=== PATIENT | female | born 1955 | race Caucasian/White ===

== ENCOUNTER 2018-10-16 10:04 | Emergency (ER) | payer MEDICARE, OTHER ==
[2018-10-16 10:11] VITALS: BP 128/56
--- NOTE | 2018-10-16 10:23 | ER Document Report ---
ED Medical Screen (RME) - General Chief Complaint: Foot Pain Stated Complaint: RIGHT FOOT PAIN Time Seen by Provider: 10/16/18 10:19 Notes: Patient is a type I diabetic on insulin with history of Rnxkmgs-Nowby-Duyec syndrome of the right foot that was diagnosed in November. She is here because she is having flattening and expanding of the mid right foot along with associated pain increase and redness. Her primary care provider is in [facility] and she has not been seen at this hospital. Not aware of any fever. Patient has gastroparesis, is legally blind, has diffuse neuropathy. TRAVEL OUTSIDE OF THE [place] IN LAST 30 DAYS: No - Related Data Allergies/Adverse Reactions: lisinopril Allergy (Verified 10/16/18 10:12) Past Medical History - Social History Chew tobacco use (# tins/day): No Frequency of alcohol use: None Drug Abuse: None - Past Medical History Cardiac Medical History: Reports: Hx Heart Attack Endocrine Medical History: Reports: Hx Diabetes Mellitus Type 1 Renal/ Medical History: Denies: Hx Peritoneal Dialysis Past Surgical History: Reports: Hx Section - x2, Hx Orthopedic Surgery - right arm Physical Exam - Vital signs Vitals: Temp Pulse Resp BP Pulse Ox 97.9 F 89 16 128/56 H 96 10/16/18 10:08 10/16/18 10:08 10/16/18 10:08 10/16/18 10:08 10/16/18 10:08 Course - Vital Signs Vital signs: Temp Pulse Resp BP Pulse Ox 97.9 F 89 16 128/56 H 96 10/16/18 10:08 10/16/18 10:08 10/16/18 10:08 10/16/18 10:08 10/16/18 10:08
[2018-10-16 11:07] LABS: ABSOLUTE BASOPHILS # (AUTO) 0.1 10^3/uL (0.0-0.2); ABSOLUTE EOSINOPHILS # (AUTO) 0.1 10^3/uL (0.0-0.6); ABSOLUTE LYMPHOCYTES (AUTO) 2.1 10^3/uL (0.5-4.7); ABSOLUTE MONOCYTES (AUTO) 0.6 10^3/uL (0.1-1.4); ABSOLUTE NEUT (AUTO) 3.6 10^3/uL (1.7-8.2); BASOPHILS % (AUTO) 1.1 % (0-2); EOSINOPHILS % (AUTO) 2.1 % (0-6); HEMATOCRIT 41.1 % (36.0-47.0); HEMOGLOBIN 13.9 g/dL (12.0-15.5); LYMPHOCYTES % (AUTO) 32.3 % (13-45); MEAN CORPUSCULAR HEMOGLOBIN 31.6 pg (27.0-33.4); MEAN CORPUSCULAR HGB CONC 33.8 g/dL (32.0-36.0); MEAN CORPUSCULAR VOLUME 94 fl (80-97); MONOCYTES % (AUTO) 9.5 % (3-13); PLATELET COUNT 347 10^3/uL (150-450); RED BLOOD COUNT 4.39 10^6/uL (3.72-5.28); RED CELL DISTRIBUTION WIDTH 13.1 % (11.5-14.0); TOTAL CELLS COUNTED % (AUTO) 100 %; WHITE BLOOD COUNT 6.5 10^3/uL (4.0-10.5)
--- NOTE | 2018-10-16 11:24 | RADIOLOGY REPORT (SQ) ---
EXAM DESCRIPTION: FOOT RIGHT COMPLETE COMPLETED DATE/TIME: 10/16/2018 11:12 am REASON FOR STUDY: Worsening of Sofrote-Nubbd-Hdpmj foot COMPARISON: None. NUMBER OF VIEWS: Three views. TECHNIQUE: AP, lateral and oblique without weight bearing radiographic images acquired of the right foot. LIMITATIONS: None. FINDINGS: MINERALIZATION: Normal. BONES: No acute fracture. Marked erosive changes involving the tarsal metatarsal joints. Relative s paring of the proximal 5th metatarsal. There appears to be generalized lateral subluxation of the se conds 3rd 4th and 5th metatarsals. Hyperextension at the tarsal metatarsal joints. No significant os teophytes. JOINTS: No erosions. No sangita-articular osteopenia. No chondrocalcinosis. SOFT TISSUES: No swelling. No calcifications. OTHER: No other significant finding. IMPRESSION: Marked erosive changes involving the tarsal metatarsal joints with hyperextension. Late ral subluxation of the seconds 3rd 4th and 5th metatarsals. TECHNICAL DOCUMENTATION: JOB ID: [id number] [employer]- All Rights Reserved Reading location - IP/workstation name: [email or web address]
[2018-10-16 11:27] LABS: ALANINE AMINOTRANSFERASE 15 U/L (9-52); ALBUMIN 4.6 g/dL (3.5-5.0); ALKALINE PHOSPHATASE 114 U/L (38-126); ANION GAP 11 (5-19); ASPARTATE AMINO TRANSFERASE 22 U/L (14-36); BILIRUBIN,DIRECT 0.2 mg/dL (0.0-0.4); BILIRUBIN,TOTAL 0.7 mg/dL (0.2-1.3); BLOOD UREA NITROGEN 19 mg/dL (7-20); CALCIUM 10.1 mg/dL (8.4-10.2); CARBON DIOXIDE 30 mmol/L (22-30); CHLORIDE 102 mmol/L (98-107); GLUCOSE 90 mg/dL (75-110); POTASSIUM 4.5 mmol/L (3.6-5.0); SODIUM 143.4 mmol/L (137-145); TOTAL PROTEIN 8.1 g/dL (6.3-8.2)
[2018-10-16] MEDS ORDERED: CEPHALEXIN 500 MG CAPSULE PO ONE (12:41)
--- NOTE | 2018-10-16 13:30 | ER Document Report ---
ED General - General Chief Complaint: Foot Pain Stated Complaint: RIGHT FOOT PAIN Time Seen by Provider: 10/16/18 10:19 TRAVEL OUTSIDE OF THE [place] IN LAST 30 DAYS: No - HPI Patient complains to provider of: Right foot pain Notes: Patient coming in for right foot pain was seen by triage provider whose note is provided below Patient is a type I diabetic on insulin with history of Oseytdp-Cwnkj-Flgia syndrome of the right foot that was diagnosed in November. She is here because she is having flattening and expanding of the mid right foot along with associated pain increase and redness. Her primary care provider is in [place] and she has not been seen at this hospital. Not aware of any fever. Further evaluation patient patient has a Charcot right foot states this is been ongoing since November when she had surgery performed when an A. tach was in her foot but she was unaware of that became infected. Patient states since that time has had deformity of her foot consistent with a Charcot right foot states that she recently moved to the area and has been unable to establish primary care patient states noticed a slight red area on the bottom of her foot therefo re came to the ER for further evaluation. Patient states history of neuropathy unable to feel anything on the bottom of her foot. Patient otherwise denies any fevers chills nausea vomiting diarrhea looks otherwise nontoxic upon my evaluation. - Related Data Allergies/Adverse Reactions: lisinopril Allergy (Verified 10/16/18 10:12) Past Medical History - Social History Smoking Status: Never Smoker Chew tobacco use (# tins/day): No Frequency of alcohol use: None Drug Abuse: None Family History: Reviewed & Not Pertinent Patient has suicidal ideation: No Patient has homicidal ideation: No - Past Medical History Cardiac Medical History: Reports: Hx Heart Attack Endocrine Medical History: Reports: Hx Diabetes Mellitus Type 1 Renal/ Medical History: Denies: Hx Peritoneal Dialysis Past Surgical History: Reports: Hx Section - x2, Hx Orthopedic Surgery - right arm Review of Systems - Review of Systems Constitutional: No symptoms reported EENT: No symptoms reported Cardiovascular: No symptoms reported Respiratory: No symptoms reported Gastrointestinal: No symptoms reported Genitourinary: No symptoms reported Female Genitourinary: No symptoms reported Musculoskeletal: Other - Foot pain Skin: No symptoms reported Hematologic/Lymphatic: No symptoms reported Neurological/Psychological: No symptoms reported Physical Exam - Vital signs Vitals: Temp Pulse Resp BP Pulse Ox 97.9 F 89 16 128/56 H 96 10/16/18 10:08 10/16/18 10:08 10/16/18 10:08 10/16/18 10:08 10/16/18 10:08 Interpretation: Normal - General General appearance: Appears well, Alert - HEENT Head: Normocephalic, Atraumatic Eyes: Normal Pupils: PERRL - Respiratory Respiratory status: No respiratory distress Chest status: Nontender Breath sounds: Normal Chest palpation: Normal - Cardiovascular Rhythm: Regular Heart sounds: Normal auscultation Murmur: No - Abdominal Inspection: Normal Distension: No distension Bowel sounds: Normal Tenderness: Nontender Organomegaly: No organomegaly - Back Back: Normal, Nontender - Extremities General upper extremity: Normal inspection, Nontender, Normal color, Normal ROM, Normal temperature General lower extremity: Nontender, Normal color, Normal ROM, Normal temperature, Normal weight bearing. No: Normal inspection - Left foot unaffected. Right foot has flattening of the arch with a small area approximate size of a $0.50 piece that is erythematous indurated not warm to touch no fluctuance no pain no signs of abscess formation is also a deformity of the arch flattening of the arch of the left foot with a small area of redness on the lateral portion just above where the arch should be at. Again this area is not warm no fluctuance no signs of abscess formation., Wilber's sign - Neurological Neuro grossly intact: Yes Cognition: Normal Orientation: AAOx4 [place] Coma Scale Eye Opening: Spontaneous Brandi Coma Scale Verbal: Oriented Brandi Coma Scale Motor: Obeys Commands [place] Coma Scale Total: 15 Speech: Normal Motor strength normal: LUE, RUE, LLE, RLE Sensory: Normal - Psychological Associated symptoms: Normal affect, Normal mood - Skin Skin Temperature: Warm Skin Moisture: Dry Skin Color: Normal Course - Re-evaluation Re-evalutation: 10/16/18 16:08 Patient coming in for evaluation of right foot pain ongoing since November and redness to the foot. No white count no fever x-ray shows erosion of the bone. Patient has some slight erythema that may be the beginning of a cellulitic or infectious process however I feel that this is more strongly due to improper footwear due to her Charcot foot. Patient was encouraged to follow-up with podiatry did get the patient's information to our social work team to see if they can help establish primary care. Patient will be given Keflex and was instructed to continue to monitor the area return immediately should develop fevers or worsening signs of an infection. - Vital Signs Vital signs: Temp Pulse Resp BP Pulse Ox 97.9 F 89 16 128/56 H 96 10/16/18 10:08 10/16/18 10:08 10/16/18 10:08 10/16/18 10:08 10/16/18 10:08 - Laboratory Result Diagrams: 10/16/18 10:40 10/16/18 10:40 Discharge - Discharge Clinical Impression: Right foot pain, Diabetes, Erythema to the bottom of the foot Condition: Good Disposition: HOME, SELF-CARE Instructions: Cellulitis ([facility]), Ice Massage ([facility]), Warm Packs ([facility]) Additional Instructions: X-ray of your foot today is not revealing signs of overt infection your examination is concerning for a slight amount of erythema on the bottom of your foot this may be the beginning of a cellulitis therefore we will go ahead and cover you with a medication called Keflex. I will give your information to our renal social worker to see if we can help establish you further follow-up. I would recommend using the postop shoe that we gave you here in ER and also using the crutch if you continue to have discomfort in ambulating to help decrease the amount of weight that you are bearing on your right foot. Return to the ER if symptoms worsen or if you develop a fever Prescriptions: Cephalexin Monohydrate [Keflex 500 mg Capsule] 500 mg PO Q6H 10 Days capsule Referrals: CELIO FUENTES DPM [ACTIVE STAFF] - Follow up as needed
== END 2018-10-16 14:00 | disposition home or self-care (01) ==
LOC: ER 10:04
DX: G60.0 Hereditary motor and sensory neuropathy (principal); M79.671 Pain in right foot; L53.9 Erythematous condition, unspecified; E10.9 Type 1 diabetes mellitus without complications; Z88.8 Allergy status to other drugs, medicaments and biological substances
CPT/HCPCS: 99283; 36415; 87040; 85025; 80053; 73630; A9270

== ENCOUNTER → 2018-10-22 | Outpatient (CLI) | payer MEDICARE, OTHER | LOC: WI 10:17 | PROVIDERS: ATTEND Internal Medicine | DX: Z85.3 Personal history of malignant neoplasm of breast (principal) | CPT/HCPCS: 77066 ==

== ENCOUNTER 2018-11-24 09:27 | Emergency (ER) | payer MEDICARE, OTHER ==
--- NOTE | 2018-11-24 10:02 | ER Document Report ---
HPI - HPI Patient complains to provider of: Ears clogged Time Seen by Provider: 11/24/18 09:56 Onset: Last week Onset/Duration: Gradual Pain Level: Denies Context: Patient complains of ears being clogged and decreased hearing. Patient denies any fever or drainage from the ears. Patient states she has had this problem in the past. Associated Symptoms: Earache. denies: Fever Exacerbated by: Denies Relieved by: Denies Similar symptoms previously: Yes Recently seen / treated by doctor: No - ROS ROS below otherwise negative: Yes Systems Reviewed and Negative: Yes All other systems reviewed and negative - CONSTITUTIONAL Constitutional: DENIES: Fever - EENT EENT: REPORTS: Ear Pain - GASTROINTESTINAL Gastrointestinal: DENIES: Nausea - DERM Skin Color: Normal Skin Problems: None Past Medical History - General Information source: Patient - Social History Smoking Status: Never Smoker Frequency of alcohol use: None Drug Abuse: None Lives with: Spouse/Significant other Family History: Reviewed & Not Pertinent - Past Medical History Cardiac Medical History: Reports: Hx Heart Attack Endocrine Medical History: Reports: Hx Diabetes Mellitus Type 1 Renal/ Medical History: Denies: Hx Peritoneal Dialysis Past Surgical History: Reports: Hx Section - x2, Hx Orthopedic Surgery - right arm Vertical Provider Document - CONSTITUTIONAL Agree With Documented VS: Yes Exam Limitations: No Limitations General Appearance: WD/WN, No Apparent Distress - INFECTION CONTROL TRAVEL OUTSIDE OF THE [place] IN LAST 30 DAYS: No - HEENT HEENT: Atraumatic, Normocephalic. negative: Pharyngeal Exudate, Pharyngeal Tenderness, Pharyngeal Erythema Notes: bilat cerumen impaction, no mastoid tenderness or swelling - NECK Neck: Normal Inspection, Supple. negative: Lymphadenopathy-Left, Lymphadenopathy-Right - RESPIRATORY Respiratory: Breath Sounds Normal, No Respiratory Distress - CARDIOVASCULAR Cardiovascular: Regular Rate, Regular Rhythm - BACK Back: Normal Inspection - MUSCULOSKELETAL/EXTREMETIES Musculoskeletal/Extremeties: MAEW - NEURO Level of Consciousness: Awake, Alert, Appropriate Motor/Sensory: No Motor Deficit - DERM Integumentary: Warm, Dry, No Rash Course - Re-evaluation Re-evalutation: 11/24/18 Cerumen impaction clear bilaterally after irrigation. Patient tolerated well. Normal TM bilaterally - Vital Signs Vital signs: Temp Pulse Resp BP Pulse Ox 98.1 F 85 20 130/58 H 98 11/24/18 09:36 11/24/18 09:36 11/24/18 09:36 11/24/18 09:36 11/24/18 09:36 Discharge - Discharge Clinical Impression: Cerumen impaction Qualifiers: Laterality: bilateral Qualified Code(s): H61.23 - Impacted cerumen, bilateral Condition: Stable Disposition: HOME, SELF-CARE Instructions: Cerumen Impaction ([facility]) Additional Instructions: Return immediately for any new or worsening symptoms Followup with your primary care provider, call tomorrow to make a followup appointment Referrals: LUIS CARLOS ROBERTS, DO [Primary Care Provider] - Follow up as needed
[2018-11-24] MEDS ORDERED: DOCUSATE SODIUM 100 MG/10 ML UDC AU ONE (10:27)
[2018-11-24 11:30] VITALS: BP 134/51
== END 2018-11-24 11:24 | disposition home or self-care (01) ==
LOC: ER 09:27
DX: H61.23 Impacted cerumen, bilateral (principal); E10.9 Type 1 diabetes mellitus without complications
CPT/HCPCS: 99282; A9270

== ENCOUNTER 2019-05-13 09:02 | Emergency (ER) | payer MEDICARE, OTHER ==
--- NOTE | 2019-05-13 09:35 | ER Document Report ---
ED Medical Screen (RME) - General Chief Complaint: Foot Pain Stated Complaint: FOOT PAIN Time Seen by Provider: 05/13/19 09:33 Primary Care Provider: TRISTEN ADKINS DPM [Primary Care Provider] - Follow up as needed Mode of Arrival: Ambulatory Information source: Patient Notes: 63-year-old female presented to ED for complaint of sore to the bottom of the left foot. She states she is type 1 diabetes with peripheral neuropathy and has developed a diabetic ulcer to the bottom of the left foot. She states she is mentioned to her doctor for couple times is been there for a long time but is gotten worse over the last couple weeks. She states she also has a history of gastroparesis [place] and she is blind. She had a carpal tunnel surgery multiple surgeries on her feet. She states her blood sugar this morning at home was 287. She states her doctor is trying to get her sugar under control but that has not been accomplished yet. Patient is alert oriented respirations regular and unlabored speaking in full sentences. I have greeted and performed a rapid initial assessment of this patient. A comprehensive ED assessment and evaluation of the patient, analysis of test results and completion of medical decision making process will be conducted by an additional ED providers. Dictation of this chart was performed using voice recognition software; therefore, there may be some unintended grammatical errors. TRAVEL OUTSIDE OF THE [place] IN LAST 30 DAYS: No - Related Data Allergies/Adverse Reactions: lisinopril Allergy (Verified 05/13/19 09:03) Past Medical History - Past Medical History Cardiac Medical History: Reports: Hx Heart Attack Endocrine Medical History: Reports: Hx Diabetes Mellitus Type 1 Renal/ Medical History: Denies: Hx Peritoneal Dialysis Past Surgical History: Reports: Hx Section - x2, Hx Orthopedic Surgery - right arm Physical Exam - Vital signs Vitals: Temp Pulse Resp BP Pulse Ox 97.9 F 83 16 140/67 H 98 05/13/19 09:09 05/13/19 09:09 05/13/19 09:09 05/13/19 09:09 05/13/19 09:09 Course - Vital Signs Vital signs: Temp Pulse Resp BP Pulse Ox 97.9 F 83 16 140/67 H 98 05/13/19 09:09 05/13/19 09:09 05/13/19 09:09 05/13/19 09:09 05/13/19 09:09 Doctor's Discharge - Discharge Referrals: TRISTEN ADKINS DPM [Primary Care Provider] - Follow up as needed
[2019-05-13 10:16] LABS: ABSOLUTE BASOPHILS # (AUTO) 0.1 10^3/uL (0.0-0.2); ABSOLUTE EOSINOPHILS # (AUTO) 0.1 10^3/uL (0.0-0.6); ABSOLUTE LYMPHOCYTES (AUTO) 2.1 10^3/uL (0.5-4.7); ABSOLUTE MONOCYTES (AUTO) 0.7 10^3/uL (0.1-1.4); ABSOLUTE NEUT (AUTO) 5.8 10^3/uL (1.7-8.2); BASOPHILS % (AUTO) 0.8 % (0-2); EOSINOPHILS % (AUTO) 1.5 % (0-6); HEMOGLOBIN 13.5 g/dL (12.0-15.5); LYMPHOCYTES % (AUTO) 23.8 % (13-45); MEAN CORPUSCULAR HEMOGLOBIN 32.1 pg (27.0-33.4); MEAN CORPUSCULAR HGB CONC 34.6 g/dL (32.0-36.0); MEAN CORPUSCULAR VOLUME 93 fl (80-97); MONOCYTES % (AUTO) 7.7 % (3-13); PLATELET COUNT 382 10^3/uL (150-450); RED BLOOD COUNT 4.19 10^6/uL (3.72-5.28); RED CELL DISTRIBUTION WIDTH 12.6 % (11.5-14.0); SEGMENTED NEUTROPHILS % (AUTO) 66.2 % (42-78); TOTAL CELLS COUNTED % (AUTO) 100 %; WHITE BLOOD COUNT 8.7 10^3/uL (4.0-10.5)
--- NOTE | 2019-05-13 10:29 | RADIOLOGY REPORT (SQ) ---
EXAM DESCRIPTION: FOOT RIGHT COMPLETE COMPLETED DATE/TIME: 05/13/2019 10:15 am REASON FOR STUDY: diabetic ulcer bottom of the foot COMPARISON: 10/16/2018 NUMBER OF VIEWS: Three views. TECHNIQUE: AP, lateral and oblique radiographic images acquired of the right foot. LIMITATIONS: None. FINDINGS: MINERALIZATION: Decreased. BONES: No definite acute fracture. Extensive erosive change involving the partial send tarsal metata rsal joint. There is again seen relative sparing of the 5th proximal metatarsal. There is associate d joint space loss and dysmorphic appearance of the bones. Unchanged lateral subluxation of the 2nd through 4th metatarsals in relation to the tarsals. There is collapse of the midfoot with pes planus . No new osseous erosions. JOINTS: As above. SOFT TISSUES: Soft tissue swelling about the foot. Scattered vascular calcifications P OTHER: No other significant finding. IMPRESSION: No definite new bony abnormality. Grossly stable appearance of the marker degenerative change involving the tarsal metatarsal joints as above. Unchanged collapse of the midfoot and lateral subluxation of the 2nd through 4th metatarsals . TECHNICAL DOCUMENTATION: JOB ID: [id number] [employer]- All Rights Reserved Reading location - IP/workstation name: [email or web address]
[2019-05-13 10:47] LABS: ALANINE AMINOTRANSFERASE 18 U/L (9-52); ALBUMIN 4.5 g/dL (3.5-5.0); ALKALINE PHOSPHATASE 131 U/L (38-126); ANION GAP 7 (5-19); ASPARTATE AMINO TRANSFERASE 22 U/L (14-36); BILIRUBIN,DIRECT 0.3 mg/dL (0.0-0.4); BILIRUBIN,TOTAL 0.6 mg/dL (0.2-1.3); BLOOD UREA NITROGEN 20 mg/dL (7-20); CALCIUM 9.7 mg/dL (8.4-10.2); CARBON DIOXIDE 30 mmol/L (22-30); CHLORIDE 100 mmol/L (98-107); GLUCOSE 318 mg/dL (75-110); POTASSIUM 5.4 mmol/L (3.6-5.0); TOTAL PROTEIN 7.9 g/dL (6.3-8.2)
--- NOTE | 2019-05-13 12:20 | ER Document Report ---
ED Extremity Problem, Lower - General Chief Complaint: Foot Pain Stated Complaint: FOOT PAIN Time Seen by Provider: 05/13/19 09:33 Primary Care Provider: TRISTEN ADKINS DPM [Primary Care Provider] - Follow up as needed CELIO MADISON DPM [ACTIVE STAFF] - Follow up as needed Mode of Arrival: Ambulatory Notes: Patient is a 63-year-old female with a history of type 1 diabetes, charcot foot, neuropathy, VA with stent placement x1, gastroparesis, chronic nausea presents to the emergency department with chief complaint of foot pain. Patient states that in February she noticed a scab to the bottom of the right foot. Patient states she does have neuropathy and cannot feel the bottom of her foot. Patient states since then the scab did come off and she is developed an ulcer. Patient states she does follow-up with her primary care physician at [facility] who is aware of this ulcer but has not given her any definitive treatment. Patient states now she is developing pain to the dorsal aspect of the foot which has been getting worse over the past 3 weeks. Patient denies fever, chills. Patient denies recent nausea vomiting or diarrhea. Patient does report she has a history of gastroparesis in which she does not have much p.o. intake anyway. Patient has had multiple surgeries to the right foot. Denies amputation of toes. Patient reports that her PCP has been working with her to get her diabetes under control as her blood sugars have been slightly elevated. TRAVEL OUTSIDE OF THE [place] IN LAST 30 DAYS: No - Related Data Allergies/Adverse Reactions: lisinopril Allergy (Verified 05/13/19 09:03) Past Medical History - General Information source: Patient - Social History Smoking Status: Never Smoker Chew tobacco use (# tins/day): No Frequency of alcohol use: None Drug Abuse: None Lives with: Spouse/Significant other Family History: Reviewed & Not Pertinent Patient has suicidal ideation: No Patient has homicidal ideation: No - Past Medical History Cardiac Medical History: Reports: Hx Heart Attack Pulmonary Medical History: Reports: None EENT Medical History: Reports: None Neurological Medical History: Reports: None Endocrine Medical History: Reports: Hx Diabetes Mellitus Type 1 Renal/ Medical History: Reports: None. Denies: Hx Peritoneal Dialysis Malignancy Medical History: Reports: None GI Medical History: Reports: Other - Gastroparesis, Chronic nausea Musculoskeletal Medical History: Reports None Skin Medical History: Reports None Psychiatric Medical History: Reports: None Traumatic Medical History: Reports: None Infectious Medical History: Reports: None Past Surgical History: Reports: Hx Cardiac Surgery - 1 stent, Hx Section - x2, Hx Orthopedic Surgery - right arm Review of Systems - Review of Systems Constitutional: No symptoms reported EENT: No symptoms reported Cardiovascular: No symptoms reported Respiratory: No symptoms reported Gastrointestinal: No symptoms reported Genitourinary: No symptoms reported Female Genitourinary: No symptoms reported Musculoskeletal: No symptoms reported Skin: See HPI Hematologic/Lymphatic: No symptoms reported Neurological/Psychological: No symptoms reported Physical Exam - Vital signs Vitals: Temp Pulse Resp BP Pulse Ox 97.9 F 83 16 140/67 H 98 05/13/19 09:09 05/13/19 09:09 05/13/19 09:09 05/13/19 09:09 05/13/19 09:09 Interpretation: Normal - Notes Notes: GENERAL: Well-appearing, well-nourished and in no acute distress. HEAD: Atraumatic, normocephalic. EYES: Pupils equal round and reactive to light, extraocular movements intact, sclera anicteric, conjunctiva are normal. ENT: Nares patent, oropharynx clear without exudates. Moist mucous membranes. NECK: Normal range of motion, supple without lymphadenopathy or JVD. LUNGS: Breath sounds clear to auscultation bilaterally and equal. No wheezes rales or rhonchi. HEART: Regular rate and rhythm without murmurs, rubs or gallops. ABDOMEN: Soft, nontender, normoactive bowel sounds. No guarding, no rebound. No masses appreciated. BACK: No cervical, thoracic, lumbar midline tenderness. No saddle anesthesia, normal distal neurovascular exam. GENITOURINARY: Deferred. EXTREMITIES: Normal range of motion, no pitting or edema. 2cmx1.5cm ulcer noted to the ventral aspect of the right foot with surrounding erythema, minimal yellow drainage, no edema noted to the foot. No visualization of bone. Foot is pink and warm. NEUROLOGICAL: Cranial nerves II through XII grossly intact. Normal speech, normal gait. PSYCH: Normal mood, normal affect. SKIN: Warm, Dry, normal turgor, no rashes or lesions noted. Course - Re-evaluation Re-evalutation: 05/13/19 14:32 I did consult with my supervising physician Dr. Romo, who did look at the x- ray. He recommends that the patient have strict follow-up with wound care, needs to be wearing the appropriate shoes and keep the pressure off the bottom of the foot as much as possible and to follow-up with the primary care physician for the uncontrolled diabetes as her insulin and dosages may need to be adjusted. The patient reports that she does have an appointment to be fitted for a diabetic boot at the end of May. I did inform the patient that she needed to follow-up prior to then as her ulcer may get worse. Upon reevaluation patient resting comfortably on stretcher. Patient did receive IV fluids for the slightly elevated potassium and the elevated glucose. Patient's repeat glucose was 214. I did explain in detail the importance of following up with wound care as I will provide a referral for them. I did state to call them today to schedule an appointment as the diabetic ulcer could potentially get worse, infected and the end result would be loss of foot. Patient verbalizes understanding and states she will call them as well as the who understands and is at the bedside. Did also inform the patient to refrain from eating green leafy vegetables and bananas over the next few days as her potassium was slightly elevated. Patient to given strict return precautions to include redness of the foot, fever, worsening a diabetic ulcer or any other concerning signs or symptoms. I also discussed the elevated hemoglobin A1c of 9.2. Patient states it has been in the for very long time and that her [facility] physician is aware. - Vital Signs Vital signs: Temp Pulse Resp BP Pulse Ox 97.4 F 80 16 148/62 H 100 05/13/19 14:48 05/13/19 14:48 05/13/19 14:48 05/13/19 14:48 05/13/19 14:48 - Laboratory Result Diagrams: 05/13/19 09:59 05/13/19 09:59 Laboratory results interpreted by me: 05/13/19 05/13/19 05/13/19 09:58 09:59 09:59 Potassium 5.4 H Glucose 318 H POC Glucose 287 H Hemoglobin A1c % 9.2 H Alkaline Phosphatase 131 H 05/13/19 14:23 Potassium Glucose POC Glucose 214 H Hemoglobin A1c % Alkaline Phosphatase Discharge - Discharge Clinical Impression: Hyperkalemia, Elevated hemoglobin A1c Diabetic foot ulcer Qualifiers: Diabetic foot ulcer location: midfoot Diabetes mellitus type: type 1 Laterality: right Non-pressure ulcer stage: limited to breakdown of skin Qualified Code(s): E10.621 - Type 1 diabetes mellitus with foot ulcer Condition: Stable Disposition: HOME, SELF-CARE Additional Instructions: Today you were seen in the emergency department for a diabetic foot wound. It does appear that you have a diabetic foot ulcer at the bottom of the right foot. At this time it does not appear infected but due to your neuropathy and diabetes that appears to be uncontrolled you are at an increased significant risk for this developing into an infection that can end up in the bone or encompass the whole foot that eventually can result in loss of limb. Please continue to follow-up with your primary care physician for the control of your diabetes. I am referring you to Dr. Madison as he specializes in wound care and can properly manage your diabetic foot ulcer. Please wear non-restricting shoes, try to stay off of the foot as much as possible or try to limit the pressure to the bottom of the foot. Please return to the emergency department if you develop fever, chills, worsening pain or increased swelling to the area. Your blood sugar was also noted to be in the low 300s. We did give you a liter of fluid to hydrate you and bring down your blood sugar (it was 214 at discharge). Your potassium level was also slightly elevated. Please limit foods high in potassium such as dark revealing vegetables and bananas. Your hemoglobin A1c was elevated at 9.2, which means that your diabetes is uncontrolled. Please follow-up with your primary care physician tomorrow as he may need to adjust her insulin dosage since it was elevated today. Foot or Leg Ulcer A skin ulcer often takes a long time to heal. Skin ulcers develop where there's poor circulation or damaged tissues. You must treat this ulcer carefully. Healing can take a few weeks, or it may take many months. Elevate the foot whenever possible. You'll probably need crutches for a while. Brief gentle heat can sometimes help, but overdoing the heat will damage the tissues and make things worse. Ask your doctor if you're not sure. Because skin ulcers occur in "sick tissues," you should pay close attention to your general health. If you're diabetic, keep your blood sugar as normal as possible. If you have edema, reduce it with medication. If your blood oxygen is low, use medication to improve your breathing and ask the doctor about an oxy gen tank at home. Review the treatment of all your medical problems with your doctor. Other treatments depend on the seriousness of the ulcer. An antibiotic is often prescribed at first. The ulcer should be cleaned and bandaged at least daily. If the ulceration is deep, packing the inside of the ulcer may be needed. The doctor may recommend special treatments such as whirlpool or a compressive dressing (for example, an Unna Boot). Call your primary care provider any time if you're not sure how you should take care of the ulcer. Infection can spread from the ulcer. If you develop fever, chilling, worsening pain, or increasing swelling in the area, call the doctor or return immediately. Referrals: TRISTEN ADKINS DPM [Primary Care Provider] - Follow up as needed CELIO MADISON DPM [ACTIVE STAFF] - Follow up as needed
[2019-05-13] MEDS ORDERED: NORMAL SALINE 1000 ML 1,000 ML IV ONE (12:27)
[2019-05-13 14:53] VITALS: BP 148/62
== END 2019-05-13 14:53 | disposition home or self-care (01) ==
LOC: ER 09:02
DX: E10.621 Type 1 diabetes mellitus with foot ulcer (principal); E10.40 Type 1 diabetes mellitus with diabetic neuropathy, unspecified; E10.43 Type 1 diabetes mellitus with diabetic autonomic (poly)neuropathy; E10.65 Type 1 diabetes mellitus with hyperglycemia; L97.519 Non-pressure chronic ulcer of other part of right foot with unspecified severity; K31.84 Gastroparesis; E87.5 Hyperkalemia; Z88.8 Allergy status to other drugs, medicaments and biological substances
CPT/HCPCS: 99283; 96360; 36415; 87040; 82962; 85025; 80053; 83036; 73630; J7030

== ENCOUNTER 2019-09-03 09:18 | Emergency (ER) | payer MEDICARE, OTHER ==
[2019-09-03 10:22] LABS: ABSOLUTE BASOPHILS # (AUTO) 0.1 10^3/uL (0.0-0.2); ABSOLUTE EOSINOPHILS # (AUTO) 0.2 10^3/uL (0.0-0.6); ABSOLUTE LYMPHOCYTES (AUTO) 2.3 10^3/uL (0.5-4.7); ABSOLUTE MONOCYTES (AUTO) 0.8 10^3/uL (0.1-1.4); ABSOLUTE NEUT (AUTO) 7.6 10^3/uL (1.7-8.2); BASOPHILS % (AUTO) 0.6 % (0-2); EOSINOPHILS % (AUTO) 1.4 % (0-6); HEMATOCRIT 35.2 % (36.0-47.0); HEMOGLOBIN 11.9 g/dL (12.0-15.5); LYMPHOCYTES % (AUTO) 21.1 % (13-45); MEAN CORPUSCULAR HEMOGLOBIN 31.4 pg (27.0-33.4); MEAN CORPUSCULAR VOLUME 92 fl (80-97); MONOCYTES % (AUTO) 7.4 % (3-13); PLATELET COUNT 383 10^3/uL (150-450); RED BLOOD COUNT 3.81 10^6/uL (3.72-5.28); RED CELL DISTRIBUTION WIDTH 12.3 % (11.5-14.0); SEGMENTED NEUTROPHILS % (AUTO) 69.5 % (42-78); TOTAL CELLS COUNTED % (AUTO) 100 %; WHITE BLOOD COUNT 10.9 10^3/uL (4.0-10.5)
--- NOTE | 2019-09-03 10:29 | ER Document Report ---
ED General - General Chief Complaint: Foot Pain Stated Complaint: FOOT PAIN Time Seen by Provider: 09/03/19 10:08 Primary Care Provider: CELIO FUENTES DPM [ACTIVE STAFF] - 09/10/19 1:00 pm TRAVEL OUTSIDE OF THE [place] IN LAST 30 DAYS: No - HPI Notes: 63-year-old female with a history of diabetes and Charcot's disease as well as a chronic right plantar foot ulcer presents complaining of right foot pain and is requesting referral to [facility] wound clinic. Patient states that her current insurance does not cover visits to wound clinic. Patient states that she has chronic pain in this foot. Patient denies fever, chills, leg swelling, erythema or edema in her right foot. - Related Data Allergies/Adverse Reactions: lisinopril Allergy (Verified 05/13/19 09:03) Past Medical History - General Information source: Patient - Social History Smoking Status: Unknown if Ever Smoked Family History: Reviewed & Not Pertinent Patient has suicidal ideation: No Patient has homicidal ideation: No - Past Medical History Cardiac Medical History: Reports: Hx Heart Attack Endocrine Medical History: Reports: Hx Diabetes Mellitus Type 1 Renal/ Medical History: Denies: Hx Peritoneal Dialysis Skin Medical History: Reports Other - History of right foot ulcer, history of Charcot's disease Past Surgical History: Reports: Hx Cardiac Surgery - 1 stent, Hx Section - x2, Hx Orthopedic Surgery - right arm Review of Systems - Review of Systems Constitutional: No symptoms reported EENT: No symptoms reported Cardiovascular: No symptoms reported Respiratory: No symptoms reported Gastrointestinal: No symptoms reported Genitourinary: No symptoms reported Female Genitourinary: No symptoms reported Musculoskeletal: See HPI. denies: Gout, Joint swelling Hematologic/Lymphatic: See HPI Neurological/Psychological: No symptoms reported -: Yes All other systems reviewed and negative Physical Exam - Vital signs Vitals: Temp Pulse Resp BP Pulse Ox 98.3 F 90 16 169/99 H 99 09/03/19 09:24 09/03/19 09:24 09/03/19 09:24 09/03/19 09:24 09/03/19 09:24 - Notes Notes: PHYSICAL EXAMINATION: GENERAL: Well-appearing, well-nourished and in no acute distress. HEAD: Atraumatic, normocephalic. EYES: Pupils equal round and reactive to light, extraocular movements intact, sclera anicteric, conjunctiva are normal. ENT: nares patent, oropharynx clear without exudates. Moist mucous membranes. NECK: Normal range of motion, supple without lymphadenopathy LUNGS: Breath sounds clear to auscultation bilaterally and equal. No wheezes rales or rhonchi. HEART: Regular rate and rhythm without murmurs ABDOMEN: Soft, nontender, normoactive bowel sounds. No guarding, no rebound. No masses appreciated. EXTREMITIES: Normal range of motion, no pitting edema. Right foot ulcer present on plantar surface, see skin exam. NEUROLOGICAL: No focal neurological deficits. Moves all extremities spontaneously and on command. PSYCH: Normal mood, normal affect. SKIN: Patient has a stage II ulcer on the plantar surface of her right midfoot. The ulceration is approximately 1.5 cm in diameter. There is very minimal purulent drainage, there is a large area of callused skin surrounding the ulceration. There is no emphysema or crepitus appreciated on palpation of the lesion. Cap refill is less than 2 seconds in the patient's toes on the right foot. Patient states she cannot feel the wound swab that this MD inserted into the ulceration for culture. Course - Vital Signs Vital signs: Temp Pulse Resp BP Pulse Ox 98.3 F 90 16 169/99 H 99 09/03/19 09:24 09/03/19 09:24 09/03/19 09:24 09/03/19 09:24 09/03/19 09:24 - Laboratory Result Diagrams: 09/03/19 09:56 09/03/19 11:22 Laboratory results interpreted by me: 09/03/19 09/03/19 09:56 11:22 WBC 10.9 H Hgb 11.9 L Hct 35.2 L Glucose 243 H Alkaline Phosphatase 140 H Total Protein 8.4 H 09/03/19 12:54 Laboratory results reviewed by this MD. - Diagnostic Test Radiology reviewed: Reports reviewed Discharge - Discharge Clinical Impression: Ulcer of right foot with fat layer exposed Clinical Impression: (Ruled Out): Right foot ulcer Condition: Fair Disposition: HOME, SELF-CARE Instructions: Foot or Leg Ulcer ([facility]) Additional Instructions: Return to the emergency department if your symptoms worsen despite taking medications as prescribed and following up with the wound clinic. Prescriptions: Clindamycin HCl [Cleocin 150 mg Capsule] 450 mg PO TID 7 Days #63 capsule Levofloxacin [Levaquin 750 mg Tablet] 750 mg PO DAILY #7 tablet Referrals: CELIO FUENTES DPM [ACTIVE STAFF] - 09/10/19 1:00 pm
--- NOTE | 2019-09-03 11:04 | RADIOLOGY REPORT (SQ) ---
EXAM DESCRIPTION: FOOT RIGHT COMPLETE COMPLETED DATE/TIME: 09/03/2019 10:53 am REASON FOR STUDY: RIGHT FOOT ULCER COMPARISON: None. NUMBER OF VIEWS: Three views. TECHNIQUE: AP, lateral and oblique radiographic images acquired of the right foot. LIMITATIONS: None. FINDINGS: MINERALIZATION: Normal. BONES: Pes planus. Marked degenerative changes involving the tarsal metatarsal joints, sparing the 4 th and 5th. Lisfranc deformity. Stable findings. JOINTS: See above SOFT TISSUES: No soft tissue swelling. No foreign body. OTHER: No other significant finding. IMPRESSION: Stable degenerative changes involving the tarsal metatarsal joints with Lisfranc deformi ty and pes planus. TECHNICAL DOCUMENTATION: JOB ID: [id number] [employer]- All Rights Reserved Reading location - IP/workstation name: [email or web address]
[2019-09-03 12:16] LABS: ALBUMIN 4.5 g/dL (3.5-5.0); ALKALINE PHOSPHATASE 140 U/L (38-126); ANION GAP 10 (5-19); ASPARTATE AMINO TRANSFERASE 23 U/L (14-36); BILIRUBIN,DIRECT 0.1 mg/dL (0.0-0.4); BILIRUBIN,TOTAL 0.5 mg/dL (0.2-1.3); BLOOD UREA NITROGEN 17 mg/dL (7-20); CALCIUM 9.4 mg/dL (8.4-10.2); CARBON DIOXIDE 28 mmol/L (22-30); CHLORIDE 100 mmol/L (98-107); GLUCOSE 243 mg/dL (75-110); POTASSIUM 4.7 mmol/L (3.6-5.0); TOTAL PROTEIN 8.4 g/dL (6.3-8.2)
[2019-09-03] MEDS ORDERED: CLINDAMYCIN HCL 150 MG CAPSULE PO ONE ×2 (12:48→14:00)
[2019-09-03] MEDS ORDERED: HYDROCODONE/ACETAMINOPHEN 5-325 MG TABLET PO ONE (12:49)
[2019-09-03] MEDS ORDERED: LEVOFLOXACIN 750 MG TABLET PO ONE (12:49)
[2019-09-03 13:46] VITALS: BP 141/67
== END 2019-09-03 13:23 | disposition home or self-care (01) ==
LOC: ER 09:18
DX: E10.621 Type 1 diabetes mellitus with foot ulcer (principal); L97.412 Non-pressure chronic ulcer of right heel and midfoot with fat layer exposed; L84 Corns and callosities; Z88.8 Allergy status to other drugs, medicaments and biological substances
CPT/HCPCS: 36415; 87040; 87070; 87205; 85025; 80053; 73630; A9270 ×2; 87077

== ENCOUNTER → 2019-09-16 | Outpatient (CLI) | payer MEDICARE, OTHER ==
[2019-09-16 13:49] LABS: ABSOLUTE BASOPHILS # (AUTO) 0.1 10^3/uL (0.0-0.2); ABSOLUTE EOSINOPHILS # (AUTO) 0.1 10^3/uL (0.0-0.6); ABSOLUTE LYMPHOCYTES (AUTO) 2.8 10^3/uL (0.5-4.7); ABSOLUTE MONOCYTES (AUTO) 0.7 10^3/uL (0.1-1.4); ABSOLUTE NEUT (AUTO) 4.8 10^3/uL (1.7-8.2); BASOPHILS % (AUTO) 0.9 % (0-2); EOSINOPHILS % (AUTO) 1.4 % (0-6); HEMATOCRIT 34.7 % (36.0-47.0); HEMOGLOBIN 11.9 g/dL (12.0-15.5); LYMPHOCYTES % (AUTO) 32.7 % (13-45); MEAN CORPUSCULAR HEMOGLOBIN 31.3 pg (27.0-33.4); MEAN CORPUSCULAR HGB CONC 34.3 g/dL (32.0-36.0); MEAN CORPUSCULAR VOLUME 91 fl (80-97); MONOCYTES % (AUTO) 8.4 % (3-13); PLATELET COUNT 341 10^3/uL (150-450); RED BLOOD COUNT 3.81 10^6/uL (3.72-5.28); RED CELL DISTRIBUTION WIDTH 13.2 % (11.5-14.0); SEGMENTED NEUTROPHILS % (AUTO) 56.6 % (42-78); TOTAL CELLS COUNTED % (AUTO) 100 %; WHITE BLOOD COUNT 8.5 10^3/uL (4.0-10.5)
[2019-09-16 14:18] LABS: ALBUMIN 4.1 g/dL (3.5-5.0); ALKALINE PHOSPHATASE 104 U/L (38-126); ANION GAP 12 (5-19); ASPARTATE AMINO TRANSFERASE 27 U/L (14-36); BILIRUBIN,DIRECT 0.1 mg/dL (0.0-0.4); BILIRUBIN,TOTAL 0.6 mg/dL (0.2-1.3); BLOOD UREA NITROGEN 14 mg/dL (7-20); CALCIUM 9.7 mg/dL (8.4-10.2); CARBON DIOXIDE 24 mmol/L (22-30); CHLORIDE 104 mmol/L (98-107); GLUCOSE 74 mg/dL (75-110); POTASSIUM 4.3 mmol/L (3.6-5.0); TOTAL PROTEIN 7.7 g/dL (6.3-8.2)
[2019-09-16 14:35] LABS: ERYTHROCYTE SEDIMENTATION RATE 43 mm/hr (0-30)
== END ==
LOC: WC 12:35
PROVIDERS: ATTEND Nurse Practitioner Family
DX: L97.512 Non-pressure chronic ulcer of other part of right foot with fat layer exposed (principal); E11.621 Type 2 diabetes mellitus with foot ulcer
CPT/HCPCS: 36415; 80053; 83036; 85025; 85652; 86140

== ENCOUNTER → 2019-11-05 | Outpatient (CLI) | payer MEDICARE, OTHER ==
[2019-11-05 12:21] LABS: ABSOLUTE BASOPHILS # (AUTO) 0.1 10^3/uL (0.0-0.2); ABSOLUTE EOSINOPHILS # (AUTO) 0.1 10^3/uL (0.0-0.6); ABSOLUTE LYMPHOCYTES (AUTO) 2.7 10^3/uL (0.5-4.7); ABSOLUTE MONOCYTES (AUTO) 0.8 10^3/uL (0.1-1.4); ABSOLUTE NEUT (AUTO) 6.3 10^3/uL (1.7-8.2); BASOPHILS % (AUTO) 0.7 % (0-2); EOSINOPHILS % (AUTO) 1.4 % (0-6); HEMOGLOBIN 12.6 g/dL (12.0-15.5); LYMPHOCYTES % (AUTO) 26.7 % (13-45); MEAN CORPUSCULAR HEMOGLOBIN 31.4 pg (27.0-33.4); MEAN CORPUSCULAR HGB CONC 34.1 g/dL (32.0-36.0); MEAN CORPUSCULAR VOLUME 92 fl (80-97); MONOCYTES % (AUTO) 7.8 % (3-13); PLATELET COUNT 350 10^3/uL (150-450); RED BLOOD COUNT 4.01 10^6/uL (3.72-5.28); RED CELL DISTRIBUTION WIDTH 13.8 % (11.5-14.0); SEGMENTED NEUTROPHILS % (AUTO) 63.4 % (42-78); TOTAL CELLS COUNTED % (AUTO) 100 %; WHITE BLOOD COUNT 9.9 10^3/uL (4.0-10.5)
[2019-11-05 12:52] LABS: ALBUMIN 4.4 g/dL (3.5-5.0); ALKALINE PHOSPHATASE 112 U/L (38-126); ANION GAP 8 (5-19); ASPARTATE AMINO TRANSFERASE 22 U/L (14-36); BILIRUBIN,DIRECT 0.2 mg/dL (0.0-0.4); BILIRUBIN,TOTAL 0.5 mg/dL (0.2-1.3); BLOOD UREA NITROGEN 20 mg/dL (7-20); CALCIUM 9.8 mg/dL (8.4-10.2); CARBON DIOXIDE 28 mmol/L (22-30); CHLORIDE 103 mmol/L (98-107); GLUCOSE 155 mg/dL (75-110); POTASSIUM 4.4 mmol/L (3.6-5.0); TOTAL PROTEIN 8.1 g/dL (6.3-8.2)
[2019-11-05 12:57] LABS: C-REACTIVE PROTEIN < 5.0 mg/L (<10.0)
[2019-11-05 13:00] LABS: ERYTHROCYTE SEDIMENTATION RATE 28 mm/hr (0-30)
--- NOTE | 2019-11-05 15:34 | RADIOLOGY REPORT (SQ) ---
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 NUMBER OF VIEWS: Three views. TECHNIQUE: AP, lateral and oblique radiographic images acquired of the right foot. LIMITATIONS: None. FINDINGS: MINERALIZATION: Normal. BONES: Chronic deformity of the tarsal bones and tarsal metatarsal joints. Pes planus. SOFT TISSUES: Plantar soft tissue defect. No soft tissue swelling. No foreign body. OTHER: No other significant finding. IMPRESSION: STABLE CHRONIC FINDINGS IN THE MIDFOOT. PLANTAR SOFT TISSUE ULCER. NO RADIOGRAPHIC HOME DENCE OF ABSCESS OR OSTEOMYELITIS. NO ACUTE BONY FINDINGS. TECHNICAL DOCUMENTATION: JOB ID: [id number] [employer]- All Rights Reserved Reading location - IP/workstation name: [email or web address]
== END ==
LOC: WC 11:42
PROVIDERS: ATTEND Nurse Practitioner Family
DX: E11.621 Type 2 diabetes mellitus with foot ulcer (principal); L97.512 Non-pressure chronic ulcer of other part of right foot with fat layer exposed
CPT/HCPCS: 36415; 80053; 85025; 85652; 86140

== ENCOUNTER → 2019-11-09 | Outpatient (CLI) | payer MEDICARE, OTHER ==
--- NOTE | 2019-11-09 12:20 | WOMENS IMAGING REPORT ---
EXAM DESCRIPTION: BILAT DIAGNOSTIC MAMMO W/CAD COMPLETED DATE/TIME: 11/09/2019 11:30 am REASON FOR STUDY: PERSONAL HISTORY OF MALIGNANT NEOPLASM Z85.3 Z85.3 PERSONAL HISTORY OF MALIGNANT NEOPLASM OF BREAST COMPARISON: 10/22/2018 EXAM PARAMETERS: Standard craniocaudal and mediolateral oblique views of each breast recorded using digital acquisition. Additional compression magnification views left breast lumpectomy site in the exaggerated craniocauda d, craniocaudad, MLO orientations. Additional left breast 90 mediolateral view and exaggerated cran iocaudad view. Read with the assistance of CAD: .[facility] - [employer] Version 9.2 LIMITATIONS: None. FINDINGS: RIGHT BREAST MASSES: No suspicious masses. CALCIFICATIONS: No new or suspicious calcifications. ARCHITECTURAL DISTORTION: None. ASYMMETRY: None noted. OTHER: No other significant findings. LEFT BREAST MASSES: No suspicious masses. CALCIFICATIONS: No new or suspicious calcifications. ARCHITECTURAL DISTORTION: Surgical lumpectomy site clips, old stereotactic biopsy clip left breast up per outer quadrant with postoperative architectural distortion ASYMMETRY: None noted. OTHER: No other significant finding. IMPRESSION: No mammographic evidence for malignancy bilaterally BREAST DENSITY: d. The breasts are extremely dense, which lowers the sensitivity of mammography. BIRAD: ASSESSMENT: 2 Benign findings. RECOMMENDATION: RECOMMENDED FOLLOW UP: Please continue yearly right breast screening, left breast di agnostic mammography. Given extremely dense fibroglandular tissue, please consider tomosynthesis in 2020. SPECIFIC INTERVENTION/IMAGING/CONSULTATION RECOMMENDED:No additional intervention/ imaging/consultati on needed at this time. COMMUNICATION:The negative/benign results were communicated to the patient. COMMENT: The patient has been notified of the results by letter per MQSA requirements. Additional no tification policies are in place for contacting patient with suspicious or incomplete findings. Quality ID #[id number]: The [employer] recommends an annual screening mammogram for women aged 40 years or over. This facility utilizes a reminder system to ensure that all patients receive reminder letters, and/or direct phone calls for appointments. This includes reminders for routine scr eening mammograms, diagnostic mammograms, or other Breast Imaging Interventions when appropriate. Th is patient will be placed in the appropriate reminder system. TECHNICAL DOCUMENTATION: FINDING NUMBER: (1) ASSESSMENT: (1) JOB ID: [id number] [employer]- All Rights Reserved Reading location - IP/workstation name: [email or web address]
== END ==
LOC: WI 10:51
PROVIDERS: ATTEND Internal Medicine
DX: Z08 Encounter for follow-up examination after completed treatment for malignant neoplasm (principal); Z85.3 Personal history of malignant neoplasm of breast
CPT/HCPCS: 77066

== ENCOUNTER → 2019-12-31 | Outpatient (CLI) | payer MEDICARE, OTHER ==
[2019-12-31 11:53] LABS: ABSOLUTE BASOPHILS # (AUTO) 0.1 10^3/uL (0.0-0.2); ABSOLUTE EOSINOPHILS # (AUTO) 0.2 10^3/uL (0.0-0.6); ABSOLUTE LYMPHOCYTES (AUTO) 1.9 10^3/uL (0.5-4.7); ABSOLUTE MONOCYTES (AUTO) 0.7 10^3/uL (0.1-1.4); ABSOLUTE NEUT (AUTO) 4.6 10^3/uL (1.7-8.2); BASOPHILS % (AUTO) 0.9 % (0-2); EOSINOPHILS % (AUTO) 2.4 % (0-6); HEMATOCRIT 37.4 % (36.0-47.0); HEMOGLOBIN 12.8 g/dL (12.0-15.5); MEAN CORPUSCULAR HEMOGLOBIN 31.1 pg (27.0-33.4); MEAN CORPUSCULAR HGB CONC 34.1 g/dL (32.0-36.0); MEAN CORPUSCULAR VOLUME 91 fl (80-97); MONOCYTES % (AUTO) 9.4 % (3-13); PLATELET COUNT 322 10^3/uL (150-450); RED CELL DISTRIBUTION WIDTH 13.5 % (11.5-14.0); SEGMENTED NEUTROPHILS % (AUTO) 61.3 % (42-78); TOTAL CELLS COUNTED % (AUTO) 100 %; WHITE BLOOD COUNT 7.5 10^3/uL (4.0-10.5)
[2019-12-31 12:20] LABS: ALBUMIN 4.3 g/dL (3.5-5.0); ALKALINE PHOSPHATASE 126 U/L (38-126); ANION GAP 9 (5-19); ASPARTATE AMINO TRANSFERASE 20 U/L (14-36); BILIRUBIN,TOTAL 0.6 mg/dL (0.2-1.3); BLOOD UREA NITROGEN 16 mg/dL (7-20); C-REACTIVE PROTEIN < 5.0 mg/L (<10.0); CALCIUM 9.4 mg/dL (8.4-10.2); CARBON DIOXIDE 27 mmol/L (22-30); CHLORIDE 99 mmol/L (98-107); GLUCOSE 319 mg/dL (75-110); POTASSIUM 5.3 mmol/L (3.6-5.0); TOTAL PROTEIN 7.6 g/dL (6.3-8.2)
[2019-12-31 12:35] LABS: ERYTHROCYTE SEDIMENTATION RATE 41 mm/hr (0-30)
--- NOTE | 2019-12-31 14:16 | RADIOLOGY REPORT (SQ) ---
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 TECHNIQUE: AP, lateral and oblique radiographic images acquired of the right foot. LIMITATIONS: Bones are partially obscured by the overlying boot. FINDINGS: MINERALIZATION: Normal. BONES: There is a small marginal erosion in the 1st cuneiform medially. JOINTS: There is deformity of the tarsal bones and tarsal metatarsal joints. SOFT TISSUES: No soft tissue swelling. No foreign body. OTHER: No other significant finding. IMPRESSION: Cannot exclude limited osteomyelitis in the 1st cuneiform bone. TECHNICAL DOCUMENTATION: JOB ID: [id number] [employer]- All Rights Reserved Reading location - IP/workstation name: [email or web address]
== END ==
LOC: WC 11:22
PROVIDERS: ATTEND Nurse Practitioner Family
DX: E11.621 Type 2 diabetes mellitus with foot ulcer (principal); L97.512 Non-pressure chronic ulcer of other part of right foot with fat layer exposed
CPT/HCPCS: 36415; 80053; 83036; 85025; 85652; 86140

== ENCOUNTER 2020-01-28 15:53 | Inpatient (IN) | payer MEDICARE, OTHER ==
[2020-01-28] MEDS ORDERED: NORMAL SALINE 1000 ML 1,000 ML IV ONE (17:56)
[2020-01-28] MEDS ORDERED: VANCOMYCIN HCL INJ 1000 MG VIAL IV ONE (17:58)
--- NOTE | 2020-01-28 18:40 | ER Document Report ---
ED General - General Chief Complaint: Skin Problem Stated Complaint: SKIN ISSUES/WOUND CHECK Time Seen by Provider: 01/28/20 17:12 Primary Care Provider: LUIS CARLOS ROBERTS DO [Primary Care Provider] - Follow up as needed TRAVEL OUTSIDE OF THE [place] IN LAST 30 DAYS: No - HPI Notes: 64-year-old female history of type 1 diabetes, PVD with angioplasty to right leg in the distant past, CAD presents with worsening right foot wound x1 week and left hand redness x1 week. Patient has been seeing wound care last seen before today 2 weeks ago without issue then today had visit and was referred to ED. Patient has had measured fevers intermittently over the past week around 100.7. Patient was started on doxycycline for left hand cellulitis 2 days ago which is shown no improvement. Patient says fingersticks have been in 300s over the past few weeks. Otherwise has felt well, denies any dizziness, syncope, nausea vomiting, abdominal pain, cough, chest pain, other recent antibiotics. - Related Data Allergies/Adverse Reactions: lisinopril Allergy (Verified 05/13/19 09:03) Opioids - Morphine Analogues Adverse Reaction (Verified 01/28/20 16:15) Past Medical History - Social History Smoking Status: Never Smoker Family History: Reviewed & Not Pertinent Patient has suicidal ideation: No Patient has homicidal ideation: No - Past Medical History Cardiac Medical History: Reports: Hx Heart Attack Endocrine Medical History: Reports: Hx Diabetes Mellitus Type 1 Renal/ Medical History: Denies: Hx Peritoneal Dialysis Past Surgical History: Reports: Hx Cardiac Surgery - 1 stent, Hx Section - x2, Hx Orthopedic Surgery - right arm Review of Systems - Review of Systems Notes: REVIEW OF SYSTEMS: CONSTITUTIONAL : +fever +chills EENT: Denies recent cold/sinus symptoms, denies throat pain CARDIOVASCULAR: Denies chest pain, YAHIR RESPIRATORY: Denies cough, denies shortness of breath. GASTROINTESTINAL: Denies abdominal pain, nausea/vomiting. GENITOURINARY: Denies difficulty urinating, painful urination. FEMALE GENITOURINARY: Denies abnormal vaginal bleeding, vaginal discharge. MUSCULOSKELETAL: Denies neck pain, back pain. SKIN: + hand rash, +wound HEMATOLOGIC : Denies easy bruising or bleeding. LYMPHATIC: Denies swollen, enlarged glands. NEUROLOGICAL: Denies headache, denies change in gait. PSYCHIATRIC: Denies anxiety or stress or depression. Physical Exam - Vital signs Vitals: Temp Pulse Resp BP Pulse Ox 98.2 F 93 16 145/67 H 97 01/28/20 15:57 01/28/20 15:57 01/28/20 15:57 01/28/20 15:57 01/28/20 15:57 - Notes Notes: PHYSICAL EXAMINATION: GENERAL: Comfortable appearing, chronically ill-appearing, in no acute distress. HEAD: Atraumatic, normocephalic. EYES: Pupils equal round and appropriate constriction, sclera anicteric, conjunctiva are normal. ENT: nares patent, mildly dry mucous membranes. NECK: Normal range of motion, supple without lymphadenopathy LUNGS: Breath sounds clear to auscultation bilaterally and equal. No wheezes rales or rhonchi. HEART: Regular rate and rhythm without murmurs ABDOMEN: Soft, nontender, no guarding, no masses, no CVAT EXTREMITIES: Normal range of motion, no pitting or edema. Right distal finger amputation well-healed. Left foot mid sole deep ulcer with clean dressing underneath dressing patient has lateral midfoot ulcer that communicates with ulcer on sole of foot with yellow discharge and foul odor minor surrounding erythema. Charcot joint on right MTP. Left hand dorsum erythematous, warm, and edematous without any pockets of fluctuance or discharge. NEUROLOGICAL: Awake, alert, conversing appropriately, moves all extremities spontaneously. PSYCH: Normal mood, normal affect. SKIN: Warm, Dry, normal turgor, see ext exam. Course - Re-evaluation Re-evalutation: 01/28/20 18:40 Presentation concerning for sepsis secondary to cellulitis versus osteomyelitis of left hand and right foot. Patient otherwise well-appearing, no signs of impending hemodynamic compromise, will rule out DKA, obtain imaging, start on vancomycin for likely MRSA, and admit. 01/28/20 20:13 Patient now meeting sepsis criteria for leukocytosis and initial heart rate but lactate negative, no acute findings on x-ray, patient remains stable and well- appearing, and course and workup not consistent with necrotizing fasciitis or immediate surgical wound, patient accepted to medicine floor after conversation with Dr. Estrada. - Vital Signs Vital signs: Temp Pulse Resp BP Pulse Ox 98.2 F 93 16 145/67 H 97 01/28/20 15:57 01/28/20 15:57 01/28/20 15:57 01/28/20 15:57 01/28/20 15:57 - Laboratory Result Diagrams: 01/28/20 18:40 01/28/20 18:40 Laboratory results interpreted by me: 01/28/20 01/28/20 01/28/20 17:51 18:40 18:40 WBC 21.0 H RBC 3.35 L Hgb 10.4 L Hct 30.7 L Plt Count 467 H Sodium 135.9 L BUN 24 H Creatinine 0.51 L Glucose 183 H POC Glucose 187 H Alkaline Phosphatase 180 H Albumin 3.4 L Discharge - Discharge Clinical Impression: Diabetic infection of right foot, Cellulitis of hand, left Condition: Fair Disposition: ADMITTED INPATIENT Admitting Provider: Sean (Hospitalist) Unit Admitted: Medical Floor Referrals: LUIS CARLOS ROBERTS DO [Primary Care Provider] - Follow up as needed
--- NOTE | 2020-01-28 18:41 | RADIOLOGY REPORT (SQ) ---
EXAM DESCRIPTION: FOOT RIGHT COMPLETE IMAGES COMPLETED DATE/TIME: 01/28/2020 6:20 pm REASON FOR STUDY: deep diabetic wound COMPARISON: Right foot films 09/03/2019, 11/05/2019, 12/31/2019 NUMBER OF VIEWS: Three views. TECHNIQUE: AP, lateral and oblique radiographic images acquired of the right foot. LIMITATIONS: Artifact from bandages FINDINGS: MINERALIZATION: Osteopenic BONES and JOINTS: There is complete collapse of the plantar arch, with Charcot foot. At the tarsomet atarsal joints, there is joint space narrowing bony fragmentation and malalignment, with stable sligh t lateral subluxation of the 2nd through 5th metatarsals with respect to the tarsal bones. These fin dings are all stable over series exams. SOFT TISSUES: There is a soft tissue ulcer at the base of the 5th right metatarsal without definite u nderlying bony erosion. OTHER: No other significant finding. IMPRESSION: Ulcer at the base of the 5th metatarsal without gross plain film evidence of osteomyelit is Charcot foot with collapse of the plantar arch and lateral subluxation of the 2nd through 5th metatar sals, similar compared to previous studies TECHNICAL DOCUMENTATION: JOB ID: [id number] 2010 [employer]- All Rights Reserved Reading location - IP/workstation name: [id number]
--- NOTE | 2020-01-28 18:43 | RADIOLOGY REPORT (SQ) ---
EXAM DESCRIPTION: HAND LEFT 3 VIEWS IMAGES COMPLETED DATE/TIME: 01/28/2020 6:20 pm REASON FOR STUDY: deep diabetic wound COMPARISON: None. EXAM PARAMETERS: NUMBER OF VIEWS: Three views. TECHNIQUE: AP, lateral and oblique radiographic images acquired of the left hand. LIMITATIONS: None. FINDINGS: MINERALIZATION: Normal. BONES: No acute fracture or dislocation. No worrisome bone lesions. JOINTS: No effusions. SOFT TISSUES: Diffuse left hand soft tissue swelling. No radiopaque foreign body. No soft tissue ga s. Arterial vascular calcifications. OTHER: No other significant finding. IMPRESSION: Diffuse soft tissue swelling of the left hand. No underlying fracture or radiopaque for eign body TECHNICAL DOCUMENTATION: JOB ID: [id number] 2010 [employer]- All Rights Reserved Reading location - IP/workstation name: [id number]
[2020-01-28 19:06] LABS: HEMATOCRIT 30.7 % (36.0-47.0); HEMOGLOBIN 10.4 g/dL (12.0-15.5); MEAN CORPUSCULAR HEMOGLOBIN 31.1 pg (27.0-33.4); MEAN CORPUSCULAR VOLUME 92 fl (80-97); PLATELET COUNT 467 10^3/uL (150-450); RED BLOOD COUNT 3.35 10^6/uL (3.72-5.28); RED CELL DISTRIBUTION WIDTH 13.1 % (11.5-14.0)
[2020-01-28 19:16] LABS: ALBUMIN 3.4 g/dL (3.5-5.0); ALKALINE PHOSPHATASE 180 U/L (38-126); ANION GAP 7 (5-19); ASPARTATE AMINO TRANSFERASE 20 U/L (14-36); BILIRUBIN,DIRECT 0.1 mg/dL (0.0-0.4); BILIRUBIN,TOTAL 0.4 mg/dL (0.2-1.3); BLOOD UREA NITROGEN 24 mg/dL (7-20); CALCIUM 8.9 mg/dL (8.4-10.2); CARBON DIOXIDE 29 mmol/L (22-30); CHLORIDE 100 mmol/L (98-107); GLUCOSE 183 mg/dL (75-110); POTASSIUM 4.4 mmol/L (3.6-5.0); TOTAL PROTEIN 6.9 g/dL (6.3-8.2)
[2020-01-28] MEDS ORDERED: CEFEPIME 2 GM/D5W RTU 50 ML IV ONE (20:02)
[2020-01-28] MEDS ORDERED: DEXTROSE 40% GEL 15 GM TUBE PO PRN ×2 (20:14)
[2020-01-28] MEDS ORDERED: GLUCAGON,HUMAN RECOMB 1 MG INJ IM PRN (20:14)
[2020-01-28] MEDS ORDERED: DEXTROSE 50%-WATER 25 GM/50 ML DISP.SYRIN IV PRN ×2 (20:14)
[2020-01-28] MEDS ORDERED: NORMAL SALINE 1000 ML 1,000 ML IV SCH (20:15)
[2020-01-28] MEDS ORDERED: VANCOMYCIN HCL 0 MG in DEXTROSE 5%-WATER 250 ML IV NR (20:15)
[2020-01-28] MEDS ORDERED: CEFEPIME HCL 2 GM in DEXTROSE 5%-WATER 50 ML IV ONE (20:30)
[2020-01-28] MEDS ORDERED: INSULIN GLARGINE,HUM.REC.ANLOG 1,000 UNIT/10 ML VIAL SUBCUT SCH (22:00)
[2020-01-28] MEDS ORDERED: CEFEPIME 1 GM/D5W RTU 1 GM/50 ML RTUPB IV SCH (22:00)
[2020-01-28] MEDS: HEPARIN SOD (PORCINE) 5,000 UNIT/ML 1 ML VIAL SUBCUT SCH (22:15)
[2020-01-28] MEDS ORDERED: ONDANSETRON 4 MG TAB.RAPDIS PO ONE (23:16)
[2020-01-29] MEDS: NORMAL SALINE 1000 ML 1,000 ML IV PRN ×3 (00:26→09:01)
[2020-01-29] MEDS: ACETAMINOPHEN 325 MG TABLET PO PRN ×2 (02:41→11:40)
--- NOTE | 2020-01-29 05:28 | PDOC H&P ---
History of Present Illness Admission Date/PCP: 01/28/20 20:18 LUIS CARLOS ROBERTS DO Patient complains of: Right foot and left hand infection History of Present Illness: MAGNUS LEONARDO is a 64 year old female with a past medical history of insulin-dependent diabetes, hypothyroidism, dyslipidemia, peripheral vascular disease with angioplasty to the right leg years ago and Charcot deformity of the right foot with chronic ulcer. Presents by referral from wound care clinic with 1 week of fever, increased drainage to the chronic right foot wound and erythema and swelling of the dorsal aspect of the left hand. In the emergency department she is found to have leukocytosis, fever and the above complaints. She started on empiric antibiotics and referred to the hospitalist for admission. Patient was started on doxycycline for hand cellulitis 48 hours prior without improvement in either. Past Medical History Cardiac Medical History: Reports: Myocardial Infarction Endocrine Medical History: Reports: Diabetes Mellitus Type 1 Past Surgical History Past Surgical History: Reports: Section - x2, Orthopedic Surgery - right arm Social History Information Source: Patient Smoking Status: Never Smoker Electronic Cigarette use?: No Frequency of Alcohol Use: None Hx Recreational Drug Use: No Drugs: None Hx Prescription Drug Abuse: No Family History Family History: Hypertension Parental Family History Reviewed: Yes Children Family History Reviewed: Yes Sibling(s) Family History Reviewed.: Yes Medication/Allergy Home Medications: Insulin Glargine,Hum.rec.anlog [Lantus Insulin 100 Unit/mL] 14 units SUBCUT QPM 10/16/18 Insulin Lispro [Humalog] 0 units SUBCUT .SLIDING SCALE 10/16/18 Levothyroxine Sodium [Synthroid 0.05 mg Tablet] 50 mcg PO DAILY 10/16/18 Sennosides [Senna] 1 tab PO QHS 10/16/18 Simvastatin [Zocor 40 mg Tablet] 40 mg PO QHS 01/28/20 Allergies/Adverse Reactions: lisinopril Allergy (Verified 05/13/19 09:03) Opioids - Morphine Analogues Adverse Reaction (Verified 01/28/20 16:15) Review of Systems Constitutional: ABSENT: chills, fever(s), headache(s), weight gain, weight loss Eyes: ABSENT: visual disturbances Ears: ABSENT: hearing changes Cardiovascular: ABSENT: chest pain, dyspnea on exertion, edema, orthropnea, palpitations Respiratory: ABSENT: cough, hemoptysis Gastrointestinal: ABSENT: abdominal pain, constipation, diarrhea, hematemesis, hematochezia, nausea, vomiting Genitourinary: ABSENT: dysuria, hematuria Musculoskeletal: ABSENT: joint swelling Integumentary: ABSENT: rash, wounds Neurological: ABSENT: abnormal gait, abnormal speech, confusion, dizziness, fo felisa weakness, syncope Psychiatric: ABSENT: anxiety, depression, homidical ideation, suicidal ideation Endocrine: ABSENT: cold intolerance, heat intolerance, polydipsia, polyuria Hematologic/Lymphatic: ABSENT: easy bleeding, easy bruising Physical Exam Vital Signs: Temp Pulse Resp BP Pulse Ox 98.8 F 86 14 109/54 L 93 01/29/20 04:03 01/29/20 04:03 01/29/20 04:03 01/29/20 04:03 01/29/20 04:03 Intake & Output 01/27/20 01/28/20 01/29/20 11:59 11:59 11:59 Intake Total 1883 Balance 1883 Weight 47.8 kg General appearance: PRESENT: cooperative, mild distress, well-developed, well-nourished Head exam: PRESENT: atraumatic, normocephalic Eye exam: PRESENT: conjunctiva pink, EOMI, PERRLA. ABSENT: scleral icterus Ear exam: PRESENT: normal external ear exam Mouth exam: PRESENT: moist, tongue midline Neck exam: ABSENT: carotid bruit, JVD, lymphadenopathy, thyromegaly Respiratory exam: PRESENT: clear to auscultation naz. ABSENT: rales, rhonchi, wheezes Cardiovascular exam: PRESENT: RRR. ABSENT: diastolic murmur, rubs, systolic murmur Pulses: PRESENT: normal dorsalis pedis pul Vascular exam: PRESENT: normal capillary refill GI/Abdominal exam: PRESENT: normal bowel sounds, soft. ABSENT: distended, guarding, mass, organolmegaly, rebound, tenderness Rectal exam: PRESENT: deferred Extremities exam: PRESENT: full ROM, other - Charcot foot deformity, bandaged and dry. ABSENT: calf tenderness, clubbing, pedal edema Back of Hands Image: 1 - Erythema pain and swelling Neurological exam: PRESENT: alert, awake, oriented to person, oriented to place, oriented to time, oriented to situation, CN II-XII grossly intact. ABSENT: motor sensory deficit Psychiatric exam: PRESENT: appropriate affect, normal mood. ABSENT: homicidal ideation, suicidal ideation Skin exam: PRESENT: dry, intact, warm. ABSENT: cyanosis, rash Results Laboratory Results: 01/28/20 18:40 01/28/20 18:40 01/28/20 01/28/20 01/28/20 18:40 18:40 18:40 WBC 21.0 H RBC 3.35 L Hgb 10.4 L Hct 30.7 L MCV 92 MCH 31.1 MCHC 34.0 RDW 13.1 Plt Count 467 H Sodium 135.9 L Potassium 4.4 Chloride 100 Carbon Dioxide 29 Anion Gap 7 BUN 24 H Creatinine 0.51 L Est GFR ( Amer) > 60 Glucose 183 H Lactic Acid 1.3 Calcium 8.9 Total Bilirubin 0.4 AST 20 Alkaline Phosphatase 180 H Total Protein 6.9 Albumin 3.4 L Impressions: Foot X-Ray 01/28/20 17:59 IMPRESSION: Ulcer at the base of the 5th metatarsal without gross plain film evidence of osteomyelitis Charcot foot with collapse of the plantar arch and lateral subluxation of the 2nd through 5th metatarsals, similar compared to previous studies Hand X-Ray 01/28/20 17:59 IMPRESSION: Diffuse soft tissue swelling of the left hand. No underlying fracture or radiopaque foreign body Assessment and Plan - Diagnosis (1) Diabetes Qualifiers: Diabetes mellitus type: type 1 Is this a current diagnosis for this admission?: Yes Plan: Lantus nightly with Humalog sliding scale, follow-up A1c (2) Cellulitis of hand, left Is this a current diagnosis for this admission?: Yes Plan: Gout versus strep cellulitis, no lymphangitic spread or abscess. Trial empiric antibiotic cefepime and vancomycin indicated for foot. Follow-up orthopedic surgery consult and CBC. (3) Diabetic infection of right foot Is this a current diagnosis for this admission?: Yes Plan: Complicated by diabetes, Charcot foot deformity and chronic state, Trial empiric antibiotic cefepime and vancomycin. Follow-up CBC, wound culture, blood culture and surgery consult - Time Time Spent with patient: 15-24 minutes
[2020-01-29] MEDS: HEPARIN SOD (PORCINE) 5,000 UNIT/ML 1 ML VIAL SUBCUT SCH ×3 (05:38→21:22)
[2020-01-29 06:11] LABS: ABSOLUTE BASOPHILS # (AUTO) 0.1 10^3/uL (0.0-0.2); ABSOLUTE LYMPHOCYTES (AUTO) 1.4 10^3/uL (0.5-4.7); ABSOLUTE MONOCYTES (AUTO) 1.3 10^3/uL (0.1-1.4); ABSOLUTE NEUT (AUTO) 16.4 10^3/uL (1.7-8.2); BASOPHILS % (AUTO) 0.4 % (0-2); EOSINOPHILS % (AUTO) 0.1 % (0-6); HEMATOCRIT 26.7 % (36.0-47.0); HEMOGLOBIN 9.2 g/dL (12.0-15.5); LYMPHOCYTES % (AUTO) 7.5 % (13-45); MEAN CORPUSCULAR HEMOGLOBIN 31.5 pg (27.0-33.4); MEAN CORPUSCULAR HGB CONC 34.4 g/dL (32.0-36.0); MEAN CORPUSCULAR VOLUME 92 fl (80-97); MONOCYTES % (AUTO) 6.6 % (3-13); PLATELET COUNT 378 10^3/uL (150-450); RED CELL DISTRIBUTION WIDTH 13.1 % (11.5-14.0); SEGMENTED NEUTROPHILS % (AUTO) 85.4 % (42-78); TOTAL CELLS COUNTED % (AUTO) 100 %; WHITE BLOOD COUNT 19.2 10^3/uL (4.0-10.5)
[2020-01-29 06:35] LABS: ANION GAP 6 (5-19); BLOOD UREA NITROGEN 16 mg/dL (7-20); CALCIUM 7.7 mg/dL (8.4-10.2); CARBON DIOXIDE 25 mmol/L (22-30); CHLORIDE 105 mmol/L (98-107); GLUCOSE 136 mg/dL (75-110)
[2020-01-29] MEDS: INSULIN LISPRO 100 UNIT/ML 3 ML VIAL SUBCUT SCH ×3 (08:56→15:53)
[2020-01-29] MEDS: LEVOTHYROXINE SODIUM 0.05 MG TABLET PO SCH (09:02)
[2020-01-29] MEDS: CEFEPIME 1 GM/D5W RTU 1 GM/50 ML RTUPB IV SCH ×2 (09:02→21:21)
[2020-01-29] MEDS: MAG HYDROX/AL HYDROX/SIMETH SUSP 30 ML UDCUP PO PRN (09:04)
[2020-01-29] MEDS: VANCOMYCIN HCL 500 MG in DEXTROSE 5%-WATER 100 ML IV SCH ×2 (09:47→21:20)
[2020-01-29] MEDS ORDERED: DOCUSATE SODIUM 100 MG CAPSULE PO SCH (10:00)
--- NOTE | 2020-01-29 13:13 | PDOC PROGRESS REPORT ---
Subjective Progress Note for:: 01/29/20 Subjective:: Patient's expresses some pain and continued redness in the left hand. Patient denies any fever or chills. States she was taking doxycycline outpatient. Reason For Visit: SEPSIS,FOOT AND HAND CELLULITIS Physical Exam Vital Signs: Temp Pulse Resp BP Pulse Ox 99.2 F 82 16 119/52 L 95 01/29/20 12:00 01/29/20 12:00 01/29/20 12:00 01/29/20 12:00 01/29/20 12:00 Intake & Output 01/28/20 01/29/20 01/30/20 06:59 06:59 06:59 Intake Total 1883 1970 Output Total 200 Balance 1683 1970 Weight 47.8 kg General appearance: PRESENT: no acute distress, cooperative Neck exam: ABSENT: JVD Respiratory exam: PRESENT: symmetrical, unlabored. ABSENT: accessory muscle use, retraction, tachypnea GI/Abdominal exam: PRESENT: soft. ABSENT: rebound, rigid, tenderness Extremities exam: PRESENT: other - Erythema of the left hand with tenderness and swelling. Purulence noted on ulcer over right foot dorsum. Ulcer also noted on right foot plantar surface but without purulence Neurological exam: PRESENT: alert, awake, oriented to person, oriented to place, oriented to time Results Laboratory Results: 01/29/20 05:22 01/29/20 05:22 01/28/20 01/28/20 01/28/20 18:40 18:40 18:40 WBC 21.0 H RBC 3.35 L Hgb 10.4 L Hct 30.7 L MCV 92 MCH 31.1 MCHC 34.0 RDW 13.1 Plt Count 467 H Seg Neutrophils % Sodium 135.9 L Potassium 4.4 Chloride 100 Carbon Dioxide 29 Anion Gap 7 BUN 24 H Creatinine 0.51 L Est GFR ( Amer) > 60 Glucose 183 H Lactic Acid 1.3 Calcium 8.9 Total Bilirubin 0.4 AST 20 Alkaline Phosphatase 180 H Total Protein 6.9 Albumin 3.4 L 01/29/20 01/29/20 05:22 05:22 WBC 19.2 H RBC 2.90 L Hgb 9.2 L Hct 26.7 L MCV 92 MCH 31.5 MCHC 34.4 RDW 13.1 Plt Count 378 Seg Neutrophils % 85.4 H Sodium 136.0 L Potassium 4.0 Chloride 105 Carbon Dioxide 25 Anion Gap 6 BUN 16 Creatinine 0.44 L Est GFR ( Amer) > 60 Glucose 136 H Lactic Acid Calcium 7.7 L Total Bilirubin AST Alkaline Phosphatase Total Protein Albumin Impressions: Foot X-Ray 01/28/20 17:59 IMPRESSION: Ulcer at the base of the 5th metatarsal without gross plain film evidence of osteomyelitis Charcot foot with collapse of the plantar arch and lateral subluxation of the 2nd through 5th metatarsals, similar compared to previous studies Hand X-Ray 01/28/20 17:59 IMPRESSION: Diffuse soft tissue swelling of the left hand. No underlying fracture or radiopaque foreign body Assessment and Plan - Diagnosis (1) Cellulitis of hand, left Is this a current diagnosis for this admission?: Yes Plan: Blood culture obtained. Patient is on vancomycin cefepime given her history of diabetes. Patient cannot recall any precipitating factor or cut to the area. No evidence of fungal nail infection. Orthopedics consult placed on admission (2) Diabetic infection of right foot Is this a current diagnosis for this admission?: Yes Plan: Complicated by diabetes, Charcot foot deformity. Empiric vancomycin and cefepime. Wound care and twice daily dressing. Will order for some bacitracin to apply to the area. The wound on the dorsum seems to be more purulent. (3) Diabetes Qualifiers: Diabetes mellitus type: type 1 Is this a current diagnosis for this admission?: Yes Plan: Lantus nightly with Humalog sliding scale, A1c very elevated indicating poor control. - Time Time Spent with patient: 15-24 minutes
--- NOTE | 2020-01-29 16:07 | PDOC CONSULTATION ---
Consultation Consult Date: 01/29/20 Provider Consulted: JELLY ESCOBAR JR History of Present Illness Admission Date/PCP: 01/28/20 20:18 LUIS CARLOS ROBERTS DO History of Present Illness: MAGNUS LEONARDO is a 64 year old female with who presents from a wound clinic with increased drainage from a right foot wound and increased swelling and erythema in her left hand. She reports her left hand swelling began about Saturday of last week and since that time she has had increased swelling and pain with range of motion, erythema and inability to use her left hand. She also reports fever. She was started on empiric antibiotics in the emergency department and admitted for further care. Pain is described as burning intense pressure in the left hand. This is not happened prior, however she did have a similar episode in the right hand with osteomyelitis requiring right hand I&D and partial amputation of the middle digit. Pain is currently 7 out of 10 improved with rest worsened with motion, improved with pain medication. She denies any puncture or injury to the left hand or inciting event. Swelling began insidiously. Regards to her right foot, she had a open wound that sounds like it was an ulcer as of last year that began and she subsequently had wound care on a regular basis and reported that it eventually closed. However as of approximately 1 week ago she started noting seeing some bleeding in her socks along the bottom aspect of her foot and also over the last week she is developed a lateral foot wound with what appears to be infection that is deep and has eroded through the skin with surrounding erythema. She has severe peripheral neuropathy and difficulty feeling her feet. Has a history of a revascularization procedure in the right lower extremity. Past Medical History Cardiac Medical History: Reports: Myocardial Infarction Endocrine Medical History: Reports: Diabetes Mellitus Type 1 Past Surgical History Past Surgical History: Reports: Section - x2, Orthopedic Surgery - right arm Social History Information Source: Patient Smoking Status: Never Smoker Electronic Cigarette use?: No Frequency of Alcohol Use: None Hx Recreational Drug Use: No Drugs: None Hx Prescription Drug Abuse: No Family History Family History: Hypertension Parental Family History Reviewed: No Children Family History Reviewed: NA Sibling(s) Family History Reviewed.: NA Medication/Allergy Home Medications: Insulin Glargine,Hum.rec.anlog [Lantus Insulin 100 Unit/mL] 14 units SUBCUT QPM 10/16/18 Insulin Lispro [Humalog] 0 units SUBCUT .SLIDING SCALE 10/16/18 Levothyroxine Sodium [Synthroid 0.05 mg Tablet] 50 mcg PO DAILY 10/16/18 Sennosides [Senna] 1 tab PO QHS 10/16/18 Simvastatin [Zocor 40 mg Tablet] 40 mg PO QHS 01/28/20 Allergies/Adverse Reactions: lisinopril Allergy (Verified 05/13/19 09:03) Opioids - Morphine Analogues Adverse Reaction (Verified 01/28/20 16:15) Review of Systems Review of Systems: Constitutional: ABSENT: anorexia, night sweats, present fevers Cardiovascular: ABSENT: chest pain Respiratory: ABSENT: dyspnea Gastrointestinal: ABSENT: vomiting Genitourinary: ABSENT: dysuria Integumentary: ABSENT: rash Neurological: ABSENT: confusion, memory loss, numbness Psychiatric: ABSENT: hallucinations Hematologic/Lymphatic: ABSENT: easy bleeding All negative as above aside from that reported in the HPI Physical Exam Vital Signs: Temp Pulse Resp BP Pulse Ox 99.2 F 82 16 119/52 L 95 01/29/20 12:00 01/29/20 12:00 01/29/20 12:00 01/29/20 12:00 01/29/20 12:00 Intake & Output 01/28/20 01/29/20 01/30/20 06:59 06:59 06:59 Intake Total 1883 1970 Output Total 200 Balance 1683 1969 Weight 47.8 kg Physical Exam: General appearance: PRESENT: no acute distress, cooperative, well-nourished Head exam: PRESENT: atraumatic, normocephalic Eye exam: PRESENT: EOMI Ear exam: PRESENT: normal external ear exam Mouth exam: PRESENT: neck supple Neck exam: ABSENT: tracheal deviation Respiratory exam: PRESENT: symmetrical, unlabored. ABSENT: accessory muscle use, wheezes Pulses: PRESENT: normal radial pulses, normal dorsalis pedis pulse Vascular exam: PRESENT: normal capillary refill GI/Abdominal exam: ABSENT: distended, firm Extremities exam: PRESENT: full ROM of bilateral shoulders, elbows wrists, knees, hips and ankles without pain, limited range of motion of the left hand and digits due to severe swelling. Limited range of motion of the right foot and digits due to swelling, erythema and drainage. Neurological exam: PRESENT: alert, awake, oriented to person, oriented to place, oriented to time Psychiatric exam: PRESENT: appropriate affect. ABSENT: agitated Focused psych exam: ABSENT: catatonic Skin exam: PRESENT: intact. ABSENT: dry All as above aside from that noted in the HPI and the following: Left upper extremity Sensation grossly intact, motor function grossly intact. Range of motion limited due to severe pain. There is swelling and erythema present and the palm as well as the dorsum of the hand between the wrist joint and the PIP joints diffusely, there is a intrinsic position of the hand due to swelling that is painful with any range of motion. Capillary refill is less than 2 seconds, there is no nidus or fluctuance palpable, the hand is diffusely swollen. Right lower extremity, patient has prior surgical scars in the heel that are well-healed. There is a erosion on the lateral aspect of the base of the fifth metatarsal, there is an erosion at the same level plantar with fibrinous exudate visible and surrounding erythema. She has little sensation of her foot into the heel, motor function is grossly intact. Capillary refill is less than 2 seconds, distal pulses are 1+. Results Laboratory Results: 01/29/20 05:22 01/29/20 05:22 01/28/20 01/28/20 01/28/20 18:40 18:40 18:40 WBC 21.0 H RBC 3.35 L Hgb 10.4 L Hct 30.7 L MCV 92 MCH 31.1 MCHC 34.0 RDW 13.1 Plt Count 467 H Seg Neutrophils % Sodium 135.9 L Potassium 4.4 Chloride 100 Carbon Dioxide 29 Anion Gap 7 BUN 24 H Creatinine 0.51 L Est GFR ( Amer) > 60 Glucose 183 H Lactic Acid 1.3 Calcium 8.9 Total Bilirubin 0.4 AST 20 Alkaline Phosphatase 180 H Total Protein 6.9 Albumin 3.4 L 01/29/20 01/29/20 05:22 05:22 WBC 19.2 H RBC 2.90 L Hgb 9.2 L Hct 26.7 L MCV 92 MCH 31.5 MCHC 34.4 RDW 13.1 Plt Count 378 Seg Neutrophils % 85.4 H Sodium 136.0 L Potassium 4.0 Chloride 105 Carbon Dioxide 25 Anion Gap 6 BUN 16 Creatinine 0.44 L Est GFR ( Amer) > 60 Glucose 136 H Lactic Acid Calcium 7.7 L Total Bilirubin AST Alkaline Phosphatase Total Protein Albumin Impressions: Foot X-Ray 01/28/20 17:59 IMPRESSION: Ulcer at the base of the 5th metatarsal without gross plain film evidence of osteomyelitis Charcot foot with collapse of the plantar arch and lateral subluxation of the 2nd through 5th metatarsals, similar compared to previous studies Hand X-Ray 01/28/20 17:59 IMPRESSION: Diffuse soft tissue swelling of the left hand. No underlying fracture or radiopaque foreign body Assessment & Plan - Diagnosis (1) Cellulitis of hand, left Is this a current diagnosis for this admission?: Yes Plan: At this time it is difficult to appreciate an abscess on physical exam, will want to get an MRI to appreciate whether the nidus for infection is either dorsal or volar. She may need operative intervention. At this time we will wait for the MRI results and evaluate the patient after a course of IV antibiotics. (2) Diabetes Qualifiers: Diabetes mellitus type: type 1 Is this a current diagnosis for this admission?: Yes (3) Diabetic infection of right foot Is this a current diagnosis for this admission?: Yes Plan: I am concerned that this is associated with deep osteomyelitis. We need to get an MRI to evaluate the extent of the disease and the need for potential surgical debridement. Surgical debridement will be likely on this today given the appearance of her wounds but will be done in a planned manner after obtaining further imaging. In the meantime wound care should be consulted in order to apply appropriate dressings. She will likely need a wound VAC. Avoid superficial cultures as they are not likely beneficial in the setting. I will obtain surgical cultures if needed. Continue IV antibiotics per medicine Plan for operative intervention potentially Saturday or Saturday, pending results of MRI and the potential for con commitment surgical intervention for both the hand and foot.
[2020-01-29] MEDS: BACITRACIN ZINC OINTMENT 15 GM TP SCH (18:08)
[2020-01-29] MEDS: ONDANSETRON HCL INJ/PF 4 MG/2 ML SDV IV PRN (18:40)
--- NOTE | 2020-01-29 20:17 | RADIOLOGY REPORT (SQ) ---
MR UPPER EXTREMITY WITHOUT IV CONTRAST HISTORY: Infection of third metacarpal. COMPARISON: None. TECHNIQUE: Multiplanar, multisequence MR imaging of the left hand was performed without the administration of intravenous gadolinium. FINDINGS: There is no abnormally decreased T1 signal to suggest acute osteomyelitis. No acute fracture or bone marrow contusion. There is diffuse subcutaneous and intramuscular edema throughout the visualized musculature of the hand. The tendons are grossly intact. No focal fluid collection. IMPRESSION: 1. No evidence of acute osteomyelitis of the third digit. 2. Diffuse myositis which may be infectious or reactive. 3. Diffuse soft tissue swelling of the left hand which may represent cellulitis.
--- NOTE | 2020-01-29 20:24 | RADIOLOGY REPORT (SQ) ---
MR LOWER EXTREMITY WITHOUT IV CONTRAST HISTORY: Foot wound along the lateral plantar aspect. COMPARISON: None. TECHNIQUE: Multiplanar, multisequence MR imaging of the right foot was performed without the administration of intravenous gadolinium. FINDINGS: There is focal soft tissue swelling ulceration along the lateral aspect of the midfoot with underlying soft tissue swelling. There is abnormally decreased T1 signal with bone marrow edema within the first, second, and third metatarsal heads with surrounding intramuscular edema. No fluid collection is seen. No acute fracture. Scattered degenerative changes throughout the midfoot. Pes planus. The visualized tendons are grossly intact. IMPRESSION: 1. Abnormal signal within the first, second and third metatarsal heads, which may represent osteomyelitis in the correct clinical setting. 2. Focal soft tissue ulceration and swelling along the lateral aspect of the midfoot.
[2020-01-29] MEDS: INSULIN GLARGINE,HUM.REC.ANLOG 1,000 UNIT/10 ML VIAL SUBCUT SCH (21:19)
[2020-01-29] MEDS: SENNOSIDES/DOCUSATE 8.6-50 MG 1 EACH TABLET PO SCH (21:22)
[2020-01-29] MEDS: SIMVASTATIN 40 MG TABLET PO SCH (21:22)
[2020-01-30] MEDS: ACETAMINOPHEN 325 MG TABLET PO PRN ×3 (04:25→19:31)
[2020-01-30 05:34] LABS: HEMATOCRIT 27.9 % (36.0-47.0); HEMOGLOBIN 9.5 g/dL (12.0-15.5); MEAN CORPUSCULAR HEMOGLOBIN 31.3 pg (27.0-33.4); MEAN CORPUSCULAR HGB CONC 34.1 g/dL (32.0-36.0); MEAN CORPUSCULAR VOLUME 92 fl (80-97); PLATELET COUNT 396 10^3/uL (150-450); RED BLOOD COUNT 3.05 10^6/uL (3.72-5.28); RED CELL DISTRIBUTION WIDTH 13.2 % (11.5-14.0); WHITE BLOOD COUNT 23.3 10^3/uL (4.0-10.5)
[2020-01-30 05:59] LABS: ABSOLUTE LYMPHOCYTES# (MANUAL) 2.6 10^3/uL (0.5-4.7); ABSOLUTE MONOCYTES # (MANUAL) 1.2 10^3/uL (0.1-1.4); BASOPHILS % (MANUAL) 0 % (0-2); EOSINOPHILS % (MANUAL) 0 % (0-6); LYMPHOCYTES % (MANUAL) 11 % (13-45); MONOCYTES % (MANUAL) 5 % (3-13); PLATELET COMMENT ADEQUATE; RBC MORPHOLOGY COMMENT NORMO-CYTIC/CHROMIC; SEGMENTED NEUTROPHILS % (MAN) 84 % (42-78); TOTAL CELLS COUNTED 100
[2020-01-30] MEDS: HEPARIN SOD (PORCINE) 5,000 UNIT/ML 1 ML VIAL SUBCUT SCH ×3 (06:11→21:46)
[2020-01-30] MEDS: INSULIN LISPRO 100 UNIT/ML 3 ML VIAL SUBCUT SCH ×3 (07:48→16:13)
[2020-01-30] MEDS ORDERED: PIPERACILLIN/TAZOBACTAM 3.375 GM VIAL IV SCH (08:00)
[2020-01-30] MEDS: PIPERACILLIN SODIUM/TAZOBACTAM 3.375 GM in NORMAL SALINE 100 ML IV SCH ×2 (10:01→17:02)
[2020-01-30] MEDS: BACITRACIN ZINC OINTMENT 15 GM TP SCH ×2 (10:01→17:02)
[2020-01-30] MEDS: LEVOTHYROXINE SODIUM 0.05 MG TABLET PO SCH (10:01)
[2020-01-30] MEDS: VANCOMYCIN HCL 500 MG in DEXTROSE 5%-WATER 100 ML IV SCH ×2 (10:56→21:46)
--- NOTE | 2020-01-30 12:55 | PDOC PROGRESS REPORT ---
Subjective Progress Note for:: 01/30/20 Subjective:: Patient feels well today. Still having some pain in her left hand. Discussed with patient about starting her on Lantus in the a.m in addition to her p.m. Lantus. She is agreeable to this. Reason For Visit: SEPSIS,FOOT AND HAND CELLULITIS Physical Exam Vital Signs: Temp Pulse Resp BP Pulse Ox 98.3 F 92 16 107/45 L 94 01/30/20 08:00 01/30/20 08:00 01/30/20 08:00 01/30/20 08:00 01/30/20 08:00 Intake & Output 01/29/20 01/30/20 01/31/20 06:59 06:59 06:59 Intake Total 1883 3240 100 Output Total 200 700 Balance 1683 2540 100 Weight 47.8 kg 48.7 kg General appearance: PRESENT: no acute distress, cooperative, thin. ABSENT: disheveled, hard of hearing Neck exam: ABSENT: JVD Respiratory exam: PRESENT: symmetrical, unlabored. ABSENT: accessory muscle use, retraction, tachypnea GI/Abdominal exam: PRESENT: soft. ABSENT: rebound, rigid, tenderness Extremities exam: PRESENT: other - Erythema of the left hand. Demarcated Neurological exam: PRESENT: alert, awake, oriented to person, oriented to place, oriented to time, oriented to situation Results Laboratory Results: 01/30/20 05:03 01/29/20 05:22 01/30/20 05:03 WBC 23.3 H RBC 3.05 L Hgb 9.5 L Hct 27.9 L MCV 92 MCH 31.3 MCHC 34.1 RDW 13.2 Plt Count 396 Seg Neutrophils % Not Reportable Impressions: Foot X-Ray 01/28/20 17:59 IMPRESSION: Ulcer at the base of the 5th metatarsal without gross plain film evidence of osteomyelitis Charcot foot with collapse of the plantar arch and lateral subluxation of the 2nd through 5th metatarsals, similar compared to previous studies Hand X-Ray 01/28/20 17:59 IMPRESSION: Diffuse soft tissue swelling of the left hand. No underlying fracture or radiopaque foreign body Lower Extremity MRI 01/29/20 00:00 IMPRESSION: 1. Abnormal signal within the first, second and third metatarsal heads, which may represent osteomyelitis in the correct clinical setting. 2. Focal soft tissue ulceration and swelling along the lateral aspect of the midfoot. Upper Extremity MRI 01/29/20 00:00 IMPRESSION: 1. No evidence of acute osteomyelitis of the third digit. 2. Diffuse myositis which may be infectious or reactive. 3. Diffuse soft tissue swelling of the left hand which may represent cellulitis. Assessment and Plan - Diagnosis (1) Osteomyelitis of right foot Qualifiers: Osteomyelitis type: other acute Qualified Code(s): M86.171 - Other acute os teomyelitis, right ankle and foot Is this a current diagnosis for this admission?: Yes Plan: Confirmed via MRI. Likely complication from infected diabetic foot wound. IV antibiotics broadened to cover anaerobes. Vanco and Zosyn. Will follow ESR and CRP markers. Orthopedics following and planning for surgical debridement and bone biopsy which will help guide therapy. Patient will require 6 weeks of IV antibiotics once bone biopsy is obtained Wound care and dressing. Topical bacitracin. (2) Cellulitis of hand, left Is this a current diagnosis for this admission?: Yes Plan: MRI revealing cellulitis with associated myositis of the left hand. Patient denies any puncture wounds. We will continue with IV antibiotics follow-up blood cultures. Orthopedics following as well. (3) Myositis of left hand Qualifiers: Myositis type: infective Qualified Code(s): M60.042 - Infective myositis, left hand Is this a current diagnosis for this admission?: Yes Plan: Likely infective and associated with cellulitis spread. Plan as above. (4) Diabetes Qualifiers: Diabetes mellitus type: type 1 Diabetes mellitus complication status: with hyperglycemia Qualified Code(s): E10.65 - Type 1 diabetes mellitus with hyperglycemia Is this a current diagnosis for this admission?: Yes Plan: A1c is very elevated at 10.5 indicating poor control of diabetes. Patient states that she has labile blood sugars often but is willing to try an addition of a.m. Lantus. I will start patient on Lantus 6 units in the morning and continue patient's 14 units at night. Monitor blood sugars carefully. - Time Time Spent with patient: Less than 15 minutes
[2020-01-30] MEDS: INSULIN GLARGINE,HUM.REC.ANLOG 1,000 UNIT/10 ML VIAL SUBCUT SCH ×2 (14:39→21:47)
[2020-01-30] MEDS: SENNOSIDES/DOCUSATE 8.6-50 MG 1 EACH TABLET PO SCH (21:46)
[2020-01-30] MEDS: SIMVASTATIN 40 MG TABLET PO SCH (21:46)
[2020-01-30] MEDS ORDERED: CEFAZOLIN 2 GM/D5W RTU 2 GM/50 ML RTUPB IV PRN (22:29)
--- NOTE | 2020-01-30 22:29 | PDOC PROGRESS REPORT ---
Subjective Progress Note for:: 01/30/20 Subjective:: Patient seen and examined today. Reports no change in symptoms following course of IV antibiotics. Pain is still severe in the left hand, minimal sensation to the left foot. Reason For Visit: SEPSIS,FOOT AND HAND CELLULITIS Physical Exam Vital Signs: Temp Pulse Resp BP Pulse Ox 99.1 F 93 18 116/47 L 93 01/30/20 19:18 01/30/20 19:18 01/30/20 19:18 01/30/20 19:18 01/30/20 19:18 Intake & Output 01/29/20 01/30/20 01/31/20 06:59 06:59 06:59 Intake Total 1883 3240 927 Output Total 200 700 400 Balance 1683 2540 527 Weight 47.8 kg 48.7 kg Physical Exam: General appearance: PRESENT: no acute distress, cooperative, well-nourished Head exam: PRESENT: atraumatic, normocephalic Eye exam: PRESENT: EOMI Ear exam: PRESENT: normal external ear exam Mouth exam: PRESENT: neck supple Neck exam: ABSENT: tracheal deviation Respiratory exam: PRESENT: symmetrical, unlabored. ABSENT: accessory muscle use, wheezes Pulses: PRESENT: normal radial pulses, normal dorsalis pedis pulse Vascular exam: PRESENT: normal capillary refill GI/Abdominal exam: ABSENT: distended, firm Extremities exam: PRESENT: full ROM of bilateral shoulders, elbows wrists, knees, hips and ankles without pain, limited range of motion of the left hand and digits due to severe swelling. Limited range of motion of the right foot and digits due to swelling, erythema and drainage. Neurological exam: PRESENT: alert, awake, oriented to person, oriented to place, oriented to time Psychiatric exam: PRESENT: appropriate affect. ABSENT: agitated Focused psych exam: ABSENT: catatonic Skin exam: PRESENT: intact. ABSENT: dry All as above aside from that noted in the HPI and the following: Left upper extremity Sensation grossly intact, motor function grossly intact. Range of motion limited due to severe pain. There is swelling and erythema present and the palm as well as the dorsum of the hand between the wrist joint and the PIP joints diffusely, there is a intrinsic position of the hand due to swelling that is painful with any range of motion. Capillary refill is less than 2 seconds, there is no nidus or fluctuance palpable, the hand is diffusely swollen. The erythema was marked yesterday and appears to have progressed. The dorsum of the hand appears to be more erythematous than my appreciation yesterday. Right lower extremity, patient has prior surgical scars in the heel that are well-healed. There is a erosion on the lateral aspect of the base of the fifth metatarsal, there is an erosion at the same level plantar with fibrinous exudate visible and surrounding erythema. She has little sensation of her foot into the heel, motor function is grossly intact. Capillary refill is less than 2 seconds, distal pulses are 1+. Results Laboratory Results: 01/30/20 05:03 01/29/20 05:22 01/30/20 01/30/20 05:03 05:03 WBC 23.3 H RBC 3.05 L Hgb 9.5 L Hct 27.9 L MCV 92 MCH 31.3 MCHC 34.1 RDW 13.2 Plt Count 396 Seg Neutrophils % Not Reportable C-Reactive Protein 185.1 H Impressions: Foot X-Ray 01/28/20 17:59 IMPRESSION: Ulcer at the base of the 5th metatarsal without gross plain film evidence of osteomyelitis Charcot foot with collapse of the plantar arch and lateral subluxation of the 2nd through 5th metatarsals, similar compared to previous studies Hand X-Ray 01/28/20 17:59 IMPRESSION: Diffuse soft tissue swelling of the left hand. No underlying fracture or radiopaque foreign body Lower Extremity MRI 01/29/20 00:00 IMPRESSION: 1. Abnormal signal within the first, second and third metatarsal heads, which may represent osteomyelitis in the correct clinical setting. 2. Focal soft tissue ulceration and swelling along the lateral aspect of the midfoot. Upper Extremity MRI 01/29/20 00:00 IMPRESSION: 1. No evidence of acute osteomyelitis of the third digit. 2. Diffuse myositis which may be infectious or reactive. 3. Diffuse soft tissue swelling of the left hand which may represent cellulitis. Assessment & Plan - Diagnosis (1) Cellulitis of hand, left Is this a current diagnosis for this admission?: Yes Plan: Plan for operative debridement tomorrow MRI read as myositis, but on my review there appears to be a nidus volar to the 3rd metacarpal. Continue IV antibiotics (2) Diabetes Qualifiers: Diabetes mellitus type: type 1 Diabetes mellitus complication status: with hyperglycemia Qualified Code(s): E10.65 - Type 1 diabetes mellitus with hyperg lycemia Is this a current diagnosis for this admission?: Yes (3) Diabetic infection of right foot Is this a current diagnosis for this admission?: Yes Plan: I will debride and take cultures of the right foot at the time of the right hand I&D tomorrow. She may need repeat debridements of the foot due to the appearance of osteomyelitis on MRI. - I will be in contact with her carbon brush maker on Saturday in regards to options for total contact casting. - NPO tonight. - Time Time Spent with patient: Less than 15 minutes
[2020-01-31] MEDS: PIPERACILLIN SODIUM/TAZOBACTAM 3.375 GM in NORMAL SALINE 100 ML IV SCH ×4 (02:29→21:59)
[2020-01-31] MEDS: HEPARIN SOD (PORCINE) 5,000 UNIT/ML 1 ML VIAL SUBCUT SCH ×3 (05:35→22:00)
[2020-01-31 06:16] LABS: HEMATOCRIT 28.4 % (36.0-47.0); HEMOGLOBIN 9.7 g/dL (12.0-15.5); MEAN CORPUSCULAR HEMOGLOBIN 31.2 pg (27.0-33.4); MEAN CORPUSCULAR HGB CONC 34.1 g/dL (32.0-36.0); MEAN CORPUSCULAR VOLUME 91 fl (80-97); PLATELET COUNT 431 10^3/uL (150-450); WHITE BLOOD COUNT 21.4 10^3/uL (4.0-10.5)
[2020-01-31] MEDS: ONDANSETRON HCL INJ/PF 4 MG/2 ML SDV IV PRN ×2 (06:16→12:34)
[2020-01-31 06:33] LABS: ABSOLUTE LYMPHOCYTES# (MANUAL) 1.1 10^3/uL (0.5-4.7); ABSOLUTE MONOCYTES # (MANUAL) 1.5 10^3/uL (0.1-1.4); BASOPHILS % (MANUAL) 0 % (0-2); EOSINOPHILS % (MANUAL) 0 % (0-6); LYMPHOCYTES % (MANUAL) 5 % (13-45); MONOCYTES % (MANUAL) 7 % (3-13); SEGMENTED NEUTROPHILS % (MAN) 88 % (42-78); TOTAL CELLS COUNTED 100
[2020-01-31 06:34] LABS: PLATELET COMMENT ADEQUATE; RBC MORPHOLOGY COMMENT NORMO-CYTIC/CHROMIC; TOXIC GRANULATION SLIGHT
[2020-01-31] MEDS: INSULIN GLARGINE,HUM.REC.ANLOG 1,000 UNIT/10 ML VIAL SUBCUT SCH ×2 (08:00→22:00)
[2020-01-31] MEDS: INSULIN LISPRO 100 UNIT/ML 3 ML VIAL SUBCUT SCH ×3 (08:00→16:59)
[2020-01-31] MEDS ORDERED: FENTANYL CITRATE INJ/PF 100 MCG/2 ML AMPUL ONE (08:09)
[2020-01-31] MEDS ORDERED: CEFAZOLIN INJ 1 GM VIAL ONE (08:09)
[2020-01-31] MEDS ORDERED: BUPIVACAINE HCL 0.5 % INJ/PF 30 ML SDV ONE (08:09)
[2020-01-31] MEDS ORDERED: LIDOCAINE 2% INJ-PF (20 MG/ML) 10 ML AMPUL ONE (08:09)
[2020-01-31] MEDS ORDERED: DEXAMETHASONE SOD PHOSPHATE INJ 4 MG/1 ML VIAL ONE (08:09)
[2020-01-31] MEDS ORDERED: MIDAZOLAM 2 MG/2 ML INJ ONE (08:09)
[2020-01-31] MEDS ORDERED: PROPOFOL INJ 200 MG/20 ML VIAL IV ONE (08:10)
[2020-01-31] MEDS ORDERED: ONDANSETRON HCL INJ/PF 4 MG/2 ML SDV ONE ×2 (08:10→10:43)
[2020-01-31] MEDS ORDERED: HYDROMORPHONE HCL INJ/PF 2 MG/ML AMPULE ONE (08:10)
[2020-01-31] MEDS ORDERED: FENTANYL CITRATE INJ/PF 100 MCG/2 ML AMPUL IV PRN ×3 (09:50)
[2020-01-31] MEDS ORDERED: DIPHENHYDRAMINE HCL 50 MG/ML VIAL IV PRN (09:50)
[2020-01-31] MEDS ORDERED: MEPERIDINE HCL/PF INJ 25 MG/1 ML DISP.SYRIN IV PRN (09:50)
[2020-01-31] MEDS ORDERED: PROMETHAZINE HCL INJ 25 MG/1 ML VIAL IV PRN ×2 (09:50)
[2020-01-31] MEDS: BACITRACIN ZINC OINTMENT 15 GM TP SCH ×2 (10:00→18:00)
[2020-01-31] MEDS: LEVOTHYROXINE SODIUM 0.05 MG TABLET PO SCH (10:00)
--- NOTE | 2020-01-31 10:36 | PDOC PROGRESS REPORT ---
Subjective Progress Note for:: 01/31/20 Subjective:: Patient seen and examined this morning. Reports continued left hand pain. Changes overnight. No new symptoms. Reason For Visit: SEPSIS,FOOT AND HAND CELLULITIS Physical Exam Vital Signs: Temp Pulse Resp BP Pulse Ox 98.2 F 82 15 138/59 H 96 01/31/20 07:16 01/31/20 07:16 01/31/20 07:16 01/31/20 07:16 01/31/20 07:16 Intake & Output 01/30/20 01/31/20 02/01/20 06:59 06:59 06:59 Intake Total 3240 1344 Output Total 700 900 Balance 2540 444 Weight 48.7 kg 54.5 kg Physical Exam: General appearance: PRESENT: no acute distress, cooperative, well-nourished Head exam: PRESENT: atraumatic, normocephalic Eye exam: PRESENT: EOMI Ear exam: PRESENT: normal external ear exam Mouth exam: PRESENT: neck supple Neck exam: ABSENT: tracheal deviation Respiratory exam: PRESENT: symmetrical, unlabored. ABSENT: accessory muscle use, wheezes Pulses: PRESENT: normal radial pulses, normal dorsalis pedis pulse Vascular exam: PRESENT: normal capillary refill GI/Abdominal exam: ABSENT: distended, firm Extremities exam: PRESENT: full ROM of bilateral shoulders, elbows wrists, knees, hips and ankles without pain, limited range of motion of the left hand and digits due to severe swelling. Limited range of motion of the right foot and digits due to swelling, erythema and drainage. Neurological exam: PRESENT: alert, awake, oriented to person, oriented to place, oriented to time Psychiatric exam: PRESENT: appropriate affect. ABSENT: agitated Focused psych exam: ABSENT: catatonic Skin exam: PRESENT: intact. ABSENT: dry All as above aside from that noted in the HPI and the following: Left upper extremity Sensation grossly intact, motor function grossly intact. Range of motion limited due to severe pain. There is swelling and erythema present and the palm as well as the dorsum of the hand between the wrist joint and the PIP joints diffusely, there is a intrinsic position of the hand due to swelling that is painful with any range of motion. Capillary refill is less than 2 seconds, there is no nidus or fluctuance palpable, the hand is diffusely swollen. The erythema was marked yesterday and appears to have progressed. The dorsum of the hand appears to be more erythematous than my appreciation yesterday. Right lower extremity, patient has prior surgical scars in the heel that are well-healed. There is a erosion on the lateral aspect of the base of the fifth metatarsal, there is an erosion at the same level plantar with fibrinous exudate visible and surrounding erythema. She has little sensation of her foot into the heel, motor function is grossly intact. Capillary refill is less than 2 seconds, distal pulses are 1+. Results Laboratory Results: 01/31/20 05:51 01/29/20 05:22 01/30/20 01/31/20 05:03 05:51 WBC 21.4 H RBC 3.10 L Hgb 9.7 L Hct 28.4 L MCV 91 MCH 31.2 MCHC 34.1 RDW 13.0 Plt Count 431 Seg Neutrophils % Not Reportable C-Reactive Protein 185.1 H Impressions: Foot X-Ray 01/28/20 17:59 IMPRESSION: Ulcer at the base of the 5th metatarsal without gross plain film evidence of osteomyelitis Charcot foot with collapse of the plantar arch and lateral subluxation of the 2nd through 5th metatarsals, similar compared to previous studies Hand X-Ray 01/28/20 17:59 IMPRESSION: Diffuse soft tissue swelling of the left hand. No underlying fracture or radiopaque foreign body Lower Extremity MRI 01/29/20 00:00 IMPRESSION: 1. Abnormal signal within the first, second and third metatarsal heads, which may represent osteomyelitis in the correct clinical setting. 2. Focal soft tissue ulceration and swelling along the lateral aspect of the midfoot. Upper Extremity MRI 01/29/20 00:00 IMPRESSION: 1. No evidence of acute osteomyelitis of the third digit. 2. Diffuse myositis which may be infectious or reactive. 3. Diffuse soft tissue swelling of the left hand which may represent cellulitis. Assessment & Plan - Diagnosis (1) Cellulitis of hand, left Is this a current diagnosis for this admission?: Yes Plan: Given the MRI findings of potential abscess, risks and benefits were further discussed with the patient was morning. Patient has decided to pursue surgery after long discussion in regards to multiple treatment options and potential consequences of each. She reports continued worsening of left hand pain Reports attempts at range of motion of the left hand but unable to due to pain Worsening erythema overnight. Plan for I&D this morning. (2) Diabetes Qualifiers: Diabetes mellitus type: type 1 Diabetes mellitus complication status: with hyperglycemia Qualified Code(s): E10.65 - Type 1 diabetes mellitus with hyperglycemia Is this a current diagnosis for this admission?: Yes (3) Diabetic infection of right foot Is this a current diagnosis for this admission?: Yes Plan: Multiple purulent ulcerations over the left foot that is deep to the superficial dermal layer. Discussed treatment options the patient. After discussing risk benefits alternatives and consequences of each the patient has opted to pursue surgical intervention for the right foot. MRI review of the right foot demonstrates potential osteomyelitis of the lateral rays, however upon my review osteomyelitis may not be so substantial. MRI often over highlights potential bone infection and the edema may be reactive to overlying ulceration and soft tissue infection Will perform operative debridement of the infection overlying the base of the lateral metatarsals and evaluate the bone health at that time. (4) Charcot's joint of right foot Is this a current diagnosis for this admission?: Yes - Time Time Spent with patient: Less than 15 minutes
[2020-01-31] MEDS ORDERED: NEOSTIGMINE METHYLSULFATE 10 MG/10 ML VIAL ONE (10:43)
[2020-01-31] MEDS ORDERED: GLYCOPYRROLATE 1 MG/5 ML VIAL ONE (10:43)
--- NOTE | 2020-01-31 10:48 | Operative Report ---
Operative Report DATE OF SURGERY: 01/31/20 PREOPERATIVE DIAGNOSIS: Right foot diabetic ulcer with deep infection. Deep le ft hand infection POSTOPERATIVE DIAGNOSIS: Right foot diabetic ulcer with deep infection. Deep left hand infection OPERATION: Incision and drainage left hand, for deep infection, not including bone. Irrigation and debridement right foot for deep infection, not including bone. Application of negative pressure wound dressing on right foot SURGEON: JELLY ESCOBAR JR ANESTHESIA: GA TISSUE REMOVED OR ALTERED: Multiple cultures taken COMPLICATIONS: None PROCEDURE: After discussing risks and benefits with the patient including alternatives and consequences to each, the patient provided informed operative consent for I&D of the hand and right foot. Due to hospital policy during the COV ID 19 epidemic, the patient was intubated in a negative pressure room, followed by 20 minutes of delay, followed by transport to the operative suite where she was then placed supine on operating table. The sites were marked and the extremities were prepped and draped in sterile sterile fashion. Preoperatively the patient was given 2 g of Ancef. A timeout was performed for both extremities followed by incision to the dorsum of the left hand. A dorsal approach between the second and third metacarpal was performed with careful dissection carried to the volar aspect of the third metacarpal. This area was explored with careful spreading of the tissue along the proximal metacarpal until abscess was encountered. Gross purulence was expressed and cultures were taken. After this the abscess was probed and massaged in order to evacuate all potential infection. Blunt debridement was performed with Ray-Lorri gauze. The wound was then copiously irrigated with dilute Betadine solution and lightly closed with a single horizontal mattress 2- 0 nylon over a Luis drain. Following this Xeroform was placed followed by l oose gauze followed by a Kerlix. The tourniquet was then deflated. Timeout was confirmed for the right lower extremity followed by blunt debridement with Ray-Lorri gauze. The edges of the ulcerations were debrided with a scalpel. The deep tissue was debrided with a curette. The proximal, dorsal ulceration was approximately 1.5 x 1.5 cm. Its base was explored and found to have a fair amount of fascial tissue overlying the base of the fifth and fourth metatarsal. The decision was made not to pursue decorticating the bone. Just distal to this wound was a 5 x 5 mm ulceration on the lateral border of the fifth metatarsal that communicated with the plantar ulceration. The plantar ulceration was approximately 1 cm x 1 cm. Again this was debrided with a scalpel along the rim of both ulcerations to achieve healthy tissue. Plantarly there was a fair amount of hardened callus that was debrided with a scalpel. Cultures were taken. Subsequent to this the wound was then curetted to remove all nonviable tissue and all wounds were then irrigated with dilute Betadine solution. After this a Xeroform was applied followed by application of a wound VAC. Patient was then awakened from anesthesia and transferred to the PACU in stable condition.
[2020-01-31] MEDS: PROMETHAZINE HCL INJ 25 MG/1 ML VIAL ONE ×2 (10:56→11:06)
[2020-01-31] MEDS ORDERED: HYDROMORPHONE HCL INJ/PF 2 MG/ML AMPULE IV PRN (11:58)
[2020-01-31] MEDS ORDERED: KETOROLAC TROMETHAMINE INJ/PF 30 MG/1 ML SDV IV PRN (12:00)
[2020-01-31] MEDS ORDERED: ACETAMINOPHEN 325 MG TABLET PO PRN (12:00)
--- NOTE | 2020-01-31 12:08 | PDOC PROGRESS REPORT ---
Subjective Progress Note for:: 01/31/20 Subjective:: Patient had operation done today by Dr. Cordon. Still notably white count continues to increase. Afebrile. Reason For Visit: SEPSIS,FOOT AND HAND CELLULITIS Physical Exam Vital Signs: Temp Pulse Resp BP Pulse Ox 98.2 F 82 15 138/59 H 96 01/31/20 07:16 01/31/20 07:16 01/31/20 07:16 01/31/20 07:16 01/31/20 07:16 Intake & Output 01/30/20 01/31/20 02/01/20 06:59 06:59 06:59 Intake Total 3240 1344 Output Total 700 900 Balance 2540 444 Weight 48.7 kg 54.5 kg General appearance: PRESENT: no acute distress, cooperative Neck exam: ABSENT: JVD Respiratory exam: PRESENT: symmetrical, unlabored. ABSENT: accessory muscle use, retraction, tachypnea Cardiovascular exam: PRESENT: RRR, +S1, +S2. ABSENT: tachycardia Extremities exam: PRESENT: other - Left hand swelling and erythema right leg in clean dressing Neurological exam: PRESENT: alert, awake, oriented to person, oriented to place, oriented to time Results Laboratory Results: 01/31/20 05:51 01/29/20 05:22 01/30/20 01/31/20 05:03 05:51 WBC 21.4 H RBC 3.10 L Hgb 9.7 L Hct 28.4 L MCV 91 MCH 31.2 MCHC 34.1 RDW 13.0 Plt Count 431 Seg Neutrophils % Not Reportable C-Reactive Protein 185.1 H Impressions: Foot X-Ray 01/28/20 17:59 IMPRESSION: Ulcer at the base of the 5th metatarsal without gross plain film evidence of osteomyelitis Charcot foot with collapse of the plantar arch and lateral subluxation of the 2nd through 5th metatarsals, similar compared to previous studies Hand X-Ray 01/28/20 17:59 IMPRESSION: Diffuse soft tissue swelling of the left hand. No underlying fracture or radiopaque foreign body Lower Extremity MRI 01/29/20 00:00 IMPRESSION: 1. Abnormal signal within the first, second and third metatarsal heads, which may represent osteomyelitis in the correct clinical setting. 2. Focal soft tissue ulceration and swelling along the lateral aspect of the midfoot. Upper Extremity MRI 01/29/20 00:00 IMPRESSION: 1. No evidence of acute osteomyelitis of the third digit. 2. Diffuse myositis which may be infectious or reactive. 3. Diffuse soft tissue swelling of the left hand which may represent cellulitis. Assessment and Plan - Diagnosis (1) Osteomyelitis of right foot Qualifiers: Osteomyelitis type: other acute Qualified Code(s): M86.171 - Other acute osteomyelitis, right ankle and foot Is this a current diagnosis for this admission?: Yes Plan: Confirmed via MRI. Likely complication from infected diabetic foot wound. IV antibiotics broadened to cover anaerobes. Vanco and Zosyn. Will follow ESR and CRP markers. Taken to the OR for 10/09/[address] Cordon for Irrigation and debridement right foot for deep infection -wound VAC applied. Follow-up deep tissue culture Patient will require 6 weeks of IV antibiotics once deep tissue culture results Wound care and dressing. (2) Cellulitis of hand, left Is this a current diagnosis for this admission?: Yes Plan: MRI revealing cellulitis with associated myositis of the left hand. I&D performed in the OR. Deep tissue culture obtained. Continue IV antibiotics. Tylenol, Toradol and Dilaudid as needed for pain control (3) Myositis of left hand Qualifiers: Myositis type: infective Qualified Code(s): M60.042 - Infective myositis, left hand Is this a current diagnosis for this admission?: Yes Plan: Likely infective and associated with cellulitis spread. Plan as above. (4) Diabetes Qualifiers: Diabetes mellitus type: type 1 Diabetes mellitus complication status: with hyperglycemia Qualified Code(s): E10.65 - Type 1 diabetes mellitus with hyperglycemia Is this a current diagnosis for this admission?: Yes Plan: A1c is very elevated at 10.5 indicating poor control of diabetes. Patient states that she has labile blood sugars often but is willing to try an addition of a.m. Lantus. Lantus 6 units in the morning and continue patient's 14 units at night. Monitor blood sugars carefully. - Time Time Spent with patient: Less than 15 minutes
[2020-01-31] MEDS: VANCOMYCIN HCL 500 MG in DEXTROSE 5%-WATER 100 ML IV SCH ×2 (12:27→21:59)
[2020-01-31] MEDS ORDERED: RINGERS SOLUTION,LACTATED 500 ML IV ONE (13:15)
[2020-01-31] MEDS ORDERED: NORMAL SALINE 1000 ML 1,000 ML IV ONE (19:00)
[2020-01-31 21:35] LABS: VANCOMYCIN,TROUGH 11.1 ug/mL (5.0-20.0)
[2020-01-31] MEDS: SIMVASTATIN 40 MG TABLET PO SCH (22:01)
[2020-01-31] MEDS: SENNOSIDES/DOCUSATE 8.6-50 MG 1 EACH TABLET PO SCH (22:01)
[2020-02-01] MEDS: PIPERACILLIN SODIUM/TAZOBACTAM 3.375 GM in NORMAL SALINE 100 ML IV SCH ×3 (05:52→21:44)
[2020-02-01] MEDS: HEPARIN SOD (PORCINE) 5,000 UNIT/ML 1 ML VIAL SUBCUT SCH ×3 (05:52→21:43)
[2020-02-01 06:37] LABS: HEMATOCRIT 28.2 % (36.0-47.0); HEMOGLOBIN 9.5 g/dL (12.0-15.5); MEAN CORPUSCULAR HEMOGLOBIN 31.3 pg (27.0-33.4); MEAN CORPUSCULAR HGB CONC 33.6 g/dL (32.0-36.0); MEAN CORPUSCULAR VOLUME 93 fl (80-97); PLATELET COUNT 463 10^3/uL (150-450); RED BLOOD COUNT 3.03 10^6/uL (3.72-5.28); RED CELL DISTRIBUTION WIDTH 13.3 % (11.5-14.0)
[2020-02-01 06:48] LABS: ANION GAP 6 (5-19); BLOOD UREA NITROGEN 20 mg/dL (7-20); CALCIUM 8.1 mg/dL (8.4-10.2); CARBON DIOXIDE 24 mmol/L (22-30); CHLORIDE 105 mmol/L (98-107); GLUCOSE 221 mg/dL (75-110); POTASSIUM 4.3 mmol/L (3.6-5.0)
[2020-02-01 07:30] LABS: ABSOLUTE LYMPHOCYTES# (MANUAL) 1.6 10^3/uL (0.5-4.7); ABSOLUTE MONOCYTES # (MANUAL) 1.6 10^3/uL (0.1-1.4); BASOPHILS % (MANUAL) 0 % (0-2); EOSINOPHILS % (MANUAL) 0 % (0-6); LYMPHOCYTES % (MANUAL) 6 % (13-45); MONOCYTES % (MANUAL) 6 % (3-13); SEGMENTED NEUTROPHILS % (MAN) 88 % (42-78); TOTAL CELLS COUNTED 100
[2020-02-01 07:31] LABS: PLATELET COMMENT INCREASED; RBC MORPHOLOGY COMMENT NORMO-CYTIC/CHROMIC
[2020-02-01] MEDS: INSULIN LISPRO 100 UNIT/ML 3 ML VIAL SUBCUT SCH ×3 (07:47→17:00)
[2020-02-01] MEDS: INSULIN GLARGINE,HUM.REC.ANLOG 1,000 UNIT/10 ML VIAL SUBCUT SCH ×2 (07:49→21:43)
[2020-02-01] MEDS: BACITRACIN ZINC OINTMENT 15 GM TP SCH ×2 (10:41→18:37)
[2020-02-01] MEDS: VANCOMYCIN HCL 750 MG in DEXTROSE 5%-WATER 250 ML IV SCH ×2 (10:42→23:35)
[2020-02-01] MEDS: LEVOTHYROXINE SODIUM 0.05 MG TABLET PO SCH (10:42)
--- NOTE | 2020-02-01 12:19 | PDOC PROGRESS REPORT ---
Subjective Progress Note for:: 02/01/20 Subjective:: Plan pain is improved today. States that she is able to move her hand a lot better than before. Reason For Visit: SEPSIS,FOOT AND HAND CELLULITIS Physical Exam Vital Signs: Temp Pulse Resp BP Pulse Ox 98.8 F 81 20 115/50 L 93 02/01/20 12:05 02/01/20 12:05 02/01/20 12:05 02/01/20 12:05 02/01/20 12:05 Intake & Output 01/31/20 02/01/20 02/02/20 06:59 06:59 06:59 Intake Total 1344 4130 Output Total 900 440 Balance 444 3690 Weight 54.5 kg 60.8 kg General appearance: PRESENT: no acute distress, cooperative Neck exam: ABSENT: JVD Respiratory exam: PRESENT: clear to auscultation naz Extremities exam: PRESENT: other - And seems less swollen but still quite some erythema. Foot wound attached to wound VAC. Neurological exam: PRESENT: alert, awake, oriented to person, oriented to place, oriented to time Results Laboratory Results: 02/01/20 05:24 02/01/20 05:24 01/31/20 02/01/20 02/01/20 20:55 05:24 05:24 WBC 26.0 H RBC 3.03 L Hgb 9.5 L Hct 28.2 L MCV 93 MCH 31.3 MCHC 33.6 RDW 13.3 Plt Count 463 H Seg Neutrophils % Not Reportable Sodium 135.2 L Potassium 4.3 Chloride 105 Carbon Dioxide 24 Anion Gap 6 BUN 20 Creatinine 0.81 0.75 Est GFR ( Amer) > 60 > 60 Glucose 221 H Calcium 8.1 L Magnesium 2.0 Impressions: Foot X-Ray 01/28/20 17:59 IMPRESSION: Ulcer at the base of the 5th metatarsal without gross plain film evidence of osteomyelitis Charcot foot with collapse of the plantar arch and lateral subluxation of the 2nd through 5th metatarsals, similar compared to previous studies Hand X-Ray 01/28/20 17:59 IMPRESSION: Diffuse soft tissue swelling of the left hand. No underlying fracture or radiopaque foreign body Lower Extremity MRI 01/29/20 00:00 IMPRESSION: 1. Abnormal signal within the first, second and third metatarsal heads, which may represent osteomyelitis in the correct clinical setting. 2. Focal soft tissue ulceration and swelling along the lateral aspect of the midfoot. Upper Extremity MRI 01/29/20 00:00 IMPRESSION: 1. No evidence of acute osteomyelitis of the third digit. 2. Diffuse myositis which may be infectious or reactive. 3. Diffuse soft tissue swelling of the left hand which may represent cellulitis. Assessment and Plan - Diagnosis (1) Osteomyelitis of right foot Qualifiers: Osteomyelitis type: other acute Qualified Code(s): M86.171 - Other acute osteomyelitis, right ankle and foot Is this a current diagnosis for this admission?: Yes Plan: Confirmed via MRI. Likely complication from infected diabetic foot wound. IV antibiotics broadened to cover anaerobes. Vanco and Zosyn. Will follow ESR and CRP markers. Taken to the OR for 10/09/[address] Cordon for Irrigation and debridement right foot for deep infection -wound VAC applied. Follow-up deep tissue culture Patient will require 6 weeks of IV antibiotics once deep tissue culture results Wound care and dressing. (2) Cellulitis of hand, left Is this a current diagnosis for this admission?: Yes Plan: MRI revealing cellulitis with associated myositis of the left hand. I&D performed in the OR. Deep tissue culture obtained. Continue IV antibiotics. Tylenol, Toradol and Dilaudid as needed for pain control (3) Myositis of left hand Qualifiers: Myositis type: infective Qualified Code(s): M60.042 - Infective myositis, left hand Is this a current diagnosis for this admission?: Yes Plan: Likely infective and associated with cellulitis spread. Plan as above. (4) Diabetes Qualifiers: Diabetes mellitus type: type 1 Diabetes mellitus complication status: with hyperglycemia Qualified Code(s): E10.65 - Type 1 diabetes mellitus with hyperglycemia Is this a current diagnosis for this admission?: Yes Plan: A1c is very elevated at 10.5 indicating poor control of diabetes. Patient states that she has labile blood sugars often but is willing to try an addition of a.m. Lantus. Lantus 6 units in the morning and continue patient's 14 units at night. Monitor blood sugars carefully. - Time Time Spent with patient: Less than 15 minutes
--- NOTE | 2020-02-01 19:21 | PDOC PROGRESS REPORT ---
Subjective Progress Note for:: 02/01/20 Subjective:: Patient is doing well this morning. She reports improved pain in the left hand and increased ability to to move her left hand. She reports no other acute symptoms overnight, no fevers chills night sweats. Reason For Visit: SEPSIS,FOOT AND HAND CELLULITIS Physical Exam Vital Signs: Temp Pulse Resp BP Pulse Ox 98.3 F 87 16 120/49 L 95 02/01/20 15:27 02/01/20 15:27 02/01/20 15:27 02/01/20 15:27 02/01/20 15:27 Intake & Output 01/31/20 02/01/20 02/02/20 06:59 06:59 06:59 Intake Total 1344 4130 490 Output Total 900 440 250 Balance 444 3690 240 Weight 54.5 kg 60.8 kg Physical Exam: General appearance: PRESENT: no acute distress, cooperative, well-nourished Head exam: PRESENT: atraumatic, normocephalic Eye exam: PRESENT: EOMI Ear exam: PRESENT: normal external ear exam Mouth exam: PRESENT: neck supple Neck exam: ABSENT: tracheal deviation Respiratory exam: PRESENT: symmetrical, unlabored. ABSENT: accessory muscle use, wheezes Pulses: PRESENT: normal radial pulses, normal dorsalis pedis pulse Vascular exam: PRESENT: normal capillary refill GI/Abdominal exam: ABSENT: distended, firm Extremities exam: PRESENT: full ROM of bilateral shoulders, elbows wrists, knees, hips and ankles without pain, limited range of motion of the left hand and digits due to severe swelling. Limited range of motion of the right foot and digits due to swelling, erythema and drainage. Neurological exam: PRESENT: alert, awake, oriented to person, oriented to place, oriented to time Psychiatric exam: PRESENT: appropriate affect. ABSENT: agitated Focused psych exam: ABSENT: catatonic Skin exam: PRESENT: intact. ABSENT: dry All as above aside from that noted in the HPI and the following: Left upper extremity Sensation grossly intact, motor function grossly intact. Range of motion limited due to severe pain. There is swelling and erythema present and the palm as well as the dorsum of the hand between the wrist joint and the PIP joints diffusely, there is a intrinsic position of the hand due to swelling that is painful with any range of motion. This does appear to be improved over exam prior to surgery. Increase passive range of motion as compared to yesterday. Capillary refill is less than 2 seconds. Wound with some drainage in the dressing. Right lower extremity, patient has prior surgical scars in the heel and foot that are well-healed. She has little sensation of her foot into the heel, motor function is grossly intact. Capillary refill is less than 2 seconds, distal pulses are 1+. Wound vacs in place with minimal output. Results Laboratory Results: 02/01/20 05:24 02/01/20 05:24 01/31/20 02/01/20 02/01/20 20:55 05:24 05:24 WBC 26.0 H RBC 3.03 L Hgb 9.5 L Hct 28.2 L MCV 93 MCH 31.3 MCHC 33.6 RDW 13.3 Plt Count 463 H Seg Neutrophils % Not Reportable Sodium 135.2 L Potassium 4.3 Chloride 105 Carbon Dioxide 24 Anion Gap 6 BUN 20 Creatinine 0.81 0.75 Est GFR ( Amer) > 60 > 60 Glucose 221 H Calcium 8.1 L Magnesium 2.0 Impressions: Foot X-Ray 01/28/20 17:59 IMPRESSION: Ulcer at the base of the 5th metatarsal without gross plain film evidence of osteomyelitis Charcot foot with collapse of the plantar arch and lateral subluxation of the 2nd through 5th metatarsals, similar compared to previous studies Hand X-Ray 01/28/20 17:59 IMPRESSION: Diffuse soft tissue swelling of the left hand. No underlying fracture or radiopaque foreign body Lower Extremity MRI 01/29/20 00:00 IMPRESSION: 1. Abnormal signal within the first, second and third metatarsal heads, which may represent osteomyelitis in the correct clinical setting. 2. Focal soft tissue ulceration and swelling along the lateral aspect of the midfoot. Upper Extremity MRI 01/29/20 00:00 IMPRESSION: 1. No evidence of acute osteomyelitis of the third digit. 2. Diffuse myositis which may be infectious or reactive. 3. Diffuse soft tissue swelling of the left hand which may represent cellulitis. Assessment & Plan - Diagnosis (1) Cellulitis of hand, left Is this a current diagnosis for this admission?: Yes (2) Diabetes Qualifiers: Diabetes mellitus type: type 1 Diabetes mellitus complication status: with hyperglycemia Qualified Code(s): E10.65 - Type 1 diabetes mellitus with hyperglycemia Is this a current diagnosis for this admission?: Yes (3) Diabetic infection of right foot Is this a current diagnosis for this admission?: Yes Plan: I have discussed this case with Dr. Madison who is been managing her at the wound clinic. He will continue to see her and manage further care outside the hospital when she is discharged. -Until that time change the wound VAC every 3 days -Antibiotics per medicine team Nonweightbearing on right lower extremity until evaluated by Dr. Madison at the wound clinic (4) Charcot's joint of right foot Is this a current diagnosis for this admission?: Yes (6) Abscess of left hand Is this a current diagnosis for this admission?: Yes Plan: The Luis drain was removed and dressings were changed today. Continue dressing changes daily, reinforce as needed Encouraged twice daily dilute Betadine soaks with warm saline, 30 minutes at a time Encourage range of motion of the left hand, Occupational Therapy consult pending Antibiotics per medical team, patient will likely need IV antibiotics for osteomyelitis of the right foot for approximately 3 to 6 weeks. He to follow cultures and sensitivities. - Time Time Spent with patient: Less than 15 minutes
[2020-02-01] MEDS: SIMVASTATIN 40 MG TABLET PO SCH (21:43)
[2020-02-01] MEDS: SENNOSIDES/DOCUSATE 8.6-50 MG 1 EACH TABLET PO SCH (21:43)
[2020-02-01] MEDS: MAG HYDROX/AL HYDROX/SIMETH SUSP 30 ML UDCUP PO PRN (21:44)
[2020-02-02] MEDS: HEPARIN SOD (PORCINE) 5,000 UNIT/ML 1 ML VIAL SUBCUT SCH ×3 (05:24→21:40)
[2020-02-02 05:58] LABS: HEMATOCRIT 27.2 % (36.0-47.0); HEMOGLOBIN 9.4 g/dL (12.0-15.5); MEAN CORPUSCULAR HEMOGLOBIN 31.6 pg (27.0-33.4); MEAN CORPUSCULAR HGB CONC 34.5 g/dL (32.0-36.0); MEAN CORPUSCULAR VOLUME 92 fl (80-97); PLATELET COUNT 494 10^3/uL (150-450); RED BLOOD COUNT 2.97 10^6/uL (3.72-5.28); RED CELL DISTRIBUTION WIDTH 13.2 % (11.5-14.0); WHITE BLOOD COUNT 20.7 10^3/uL (4.0-10.5)
[2020-02-02] MEDS: PIPERACILLIN SODIUM/TAZOBACTAM 3.375 GM in NORMAL SALINE 100 ML IV SCH (06:05)
[2020-02-02 06:17] LABS: INTERNATIONAL RATION (INR) 1.06; PROTHROMBIN TIME 13.8 SEC (11.4-15.4)
[2020-02-02 06:19] LABS: PARTIAL THROMBOPLASTIN TIME 37.4 SEC (23.5-35.8)
[2020-02-02 06:33] LABS: ABSOLUTE LYMPHOCYTES# (MANUAL) 2.1 10^3/uL (0.5-4.7); BASOPHILS % (MANUAL) 0 % (0-2); EOSINOPHILS % (MANUAL) 0 % (0-6); LYMPHOCYTES % (MANUAL) 10 % (13-45); MONOCYTES % (MANUAL) 5 % (3-13); SEGMENTED NEUTROPHILS % (MAN) 85 % (42-78); TOTAL CELLS COUNTED 100
[2020-02-02 06:34] LABS: PLATELET COMMENT INCREASED; TOXIC GRANULATION SLIGHT
[2020-02-02 06:38] LABS: RBC MORPHOLOGY COMMENT NORMO-CYTIC/CHROMIC
[2020-02-02] MEDS: ONDANSETRON HCL INJ/PF 4 MG/2 ML SDV IV PRN (06:42)
[2020-02-02] MEDS: INSULIN LISPRO 100 UNIT/ML 3 ML VIAL SUBCUT SCH ×3 (07:59→18:02)
[2020-02-02] MEDS: INSULIN GLARGINE,HUM.REC.ANLOG 1,000 UNIT/10 ML VIAL SUBCUT SCH ×3 (08:00→21:39)
[2020-02-02] MEDS ORDERED: METOCLOPRAMIDE HCL INJ/PF 10 MG/2 ML SDV IV ONE ×2 (08:30→18:00)
[2020-02-02] MEDS: BACITRACIN ZINC OINTMENT 15 GM TP SCH ×2 (09:22→17:57)
[2020-02-02] MEDS: LEVOTHYROXINE SODIUM 0.05 MG TABLET PO SCH (09:26)
[2020-02-02] MEDS: VANCOMYCIN HCL 750 MG in DEXTROSE 5%-WATER 250 ML IV SCH (09:26)
[2020-02-02] MEDS: CEFTRIAXONE 2 GM/D5W RTU 2 GM/50 ML RTUPB IV SCH (12:15)
--- NOTE | 2020-02-02 13:50 | RADIOLOGY REPORT (SQ) ---
EXAM DESCRIPTION: PICC INSERTION IMAGES COMPLETED DATE/TIME: 02/02/2020 1:41 pm REASON FOR STUDY: 6wks IV antibiotics for osteomyelitis COMPARISON: None. FLUOROSCOPY TIME: 42 seconds 2 images saved to PACS. TECHNIQUE: Fluoroscopic and ultrasound guided PICC placement. LIMITATIONS: None. PROCEDURE: After written consent and assessment were obtained, the patient was brought into the fluo roscopy room and placed supine on the table. Ultrasound evaluation of potential access sites were per formed. After successfully identifying a patent right basilic vein, the right arm was prepped and herbie ped in a sterile fashion along with the ultrasound probe. The entry site was anesthetized with 1% lid ocaine. A 21 gauge 7 cm needle was advanced through the skin and into the basilic vein under live ult rasound guidance. An ultrasound image was saved to PACS confirming access site. A .018 guide wire w as then inserted through the needle and into the venous system. The needle was then removed and an 11 blade scalpel was used to make a 1cm skin incision. A 5 fr peel-away sheath was advanced over the w kya and into the venous system. A measurement was then made using the existing wire and live fluorosc opic guidance. The wire was then removed and trimmed. The PICC was advanced through the peel-away she ath and into the venous system. The peel-away sheath was removed and the catheter was adhered to the patients arm with a stat lock. The catheter was then aspirated and flushed and a sterile bandage was placed over the access site. A fluoroscopic spot image was saved to PACS confirming the catheter tip within the superior vena cava. IMPRESSION: SUCCESSFUL PLACEMENT OF A 5 FR DUAL LUMEN 28 CM PICC IN THE RIGHT BASILIC VEIN. COMMENT: Patient medication list reviewed: Yes- Quality ID# 130:Eligible professional attests to doc umenting in the medical record they obtained, updated, or reviewed the patient's current medications. . Quality ID 145: Final reports for procedures using fluoroscopy that document radiation exposure delphine katelin, or exposure time and number of fluorographic images (if radiation exposure indices are not avail able) Quality ID #76: The patient was prepped and draped using maximum sterile barrier technique including cap, mask, sterile gown, sterile gloves, a large sterile sheet, hand hygiene, and 2% Chlorhexidine fo r cutaneous antisepsis. When ultrasound is used, sterile ultrasound techniques are followed requiring sterile gel and sterile probes. TECHNICAL DOCUMENTATION: JOB ID: [id number] 2010 [employer]- All Rights Reserved rev-03/07 Reading location - IP/workstation name: [email or web address]
[2020-02-02] MEDS ORDERED: KETOROLAC TROMETHAMINE INJ/PF 30 MG/1 ML SDV IV PRN (14:13)
--- NOTE | 2020-02-02 14:29 | PDOC PROGRESS REPORT ---
Subjective Progress Note for:: 02/02/20 Subjective:: Patient had some nausea and vomiting today after receiving Dilaudid this morning. She states that she usually has such side effects after taking Dilaudid and starting opioids. I will go ahead and discontinue opioid medication. Patient states that the Tylenol was working just fine for her. Reason For Visit: SEPSIS,FOOT AND HAND CELLULITIS Physical Exam Vital Signs: Temp Pulse Resp BP Pulse Ox 98.3 F 89 20 126/64 H 91 L 02/01/20 23:23 02/02/20 12:00 02/02/20 12:00 02/02/20 12:00 02/02/20 12:00 Intake & Output 02/01/20 02/02/20 02/03/20 06:59 06:59 06:59 Intake Total 4130 1570 600 Output Total 440 250 Balance 3690 1320 600 Weight 60.8 kg 61.3 kg General appearance: PRESENT: no acute distress, cooperative Neck exam: ABSENT: JVD Respiratory exam: PRESENT: clear to auscultation naz, unlabored. ABSENT: tachypnea, wheezes Cardiovascular exam: PRESENT: RRR, +S1, +S2. ABSENT: tachycardia GI/Abdominal exam: PRESENT: soft. ABSENT: rebound, rigid, tenderness Extremities exam: PRESENT: other - Wound VAC placed on right foot Neurological exam: PRESENT: alert, awake, oriented to person, oriented to place, oriented to time, oriented to situation Results Laboratory Results: 02/02/20 05:39 02/01/20 05:24 02/02/20 05:39 WBC 20.7 H RBC 2.97 L Hgb 9.4 L Hct 27.2 L MCV 92 MCH 31.6 MCHC 34.5 RDW 13.2 Plt Count 494 H Seg Neutrophils % Not Reportable 01/31/20 09:49 Hand - Abscess Gram Stain - Final 01/31/20 09:49 Hand - Abscess Wound Culture - Final Group B Beta Streptococcus 01/31/20 09:47 Hand - Abscess Gram Stain - Final 01/31/20 09:47 Hand - Abscess Wound Culture - Final Group B Beta Streptococcus 01/31/20 09:45 Hand - Abscess Gram Stain - Final 01/31/20 09:45 Hand - Abscess Wound Culture - Final Group B Beta Streptococcus No Anaerobic Organisms Impressions: Foot X-Ray 01/28/20 17:59 IMPRESSION: Ulcer at the base of the 5th metatarsal without gross plain film evidence of osteomyelitis Charcot foot with collapse of the plantar arch and lateral subluxation of the 2nd through 5th metatarsals, similar compared to previous studies Hand X-Ray 01/28/20 17:59 IMPRESSION: Diffuse soft tissue swelling of the left hand. No underlying fracture or radiopaque foreign body Lower Extremity MRI 01/29/20 00:00 IMPRESSION: 1. Abnormal signal within the first, second and third metatarsal heads, which may represent osteomyelitis in the correct clinical setting. 2. Focal soft tissue ulceration and swelling along the lateral aspect of the midfoot. Upper Extremity MRI 01/29/20 00:00 IMPRESSION: 1. No evidence of acute osteomyelitis of the third digit. 2. Diffuse myositis which may be infectious or reactive. 3. Diffuse soft tissue swelling of the left hand which may represent cellulitis. PICC Line Insertion 02/02/20 07:00 IMPRESSION: SUCCESSFUL PLACEMENT OF A 5 FR DUAL LUMEN 28 CM PICC IN THE RIGHT BASILIC VEIN. Assessment and Plan - Diagnosis (1) Osteomyelitis of right foot Qualifiers: Osteomyelitis type: other acute Qualified Code(s): M86.171 - Other acute osteomyelitis, right ankle and foot Is this a current diagnosis for this admission?: Yes Plan: Confirmed via MRI. Likely complication from infected diabetic foot wound. Taken to the OR for 10/09/[address] Cordon for Irrigation and debridement right foot for deep infection -wound VAC applied. Deep tissue culture done in the OR revealing group B strep Leukocytosis improving now Antibiotics regimen changed to ceftriaxone 2 g IV daily to complete 6 weeks of treatment on 03/12/2020. PICC line placed today. Reviewed Dr. Cordon's note which indicates that patient to be sent with wound VAC in place and changed every 3 days until she can follow-up at the wound clinic with Dr. Madison. Discharge planning consulted to set all these up. (2) Cellulitis of hand, left Is this a current diagnosis for this admission?: Yes Plan: MRI revealing cellulitis with associated myositis of the left hand. I&D performed in the OR. Deep tissue culture also growing group B strep. Continue IV antibiotics. Tylenol, Toradol as needed for pain control (3) Myositis of left hand Qualifiers: Myositis type: infective Qualified Code(s): M60.042 - Infective myositis, left hand Is this a current diagnosis for this admission?: Yes Plan: Likely infective and associated with cellulitis spread. Plan as above. (4) Diabetes Qualifiers: Diabetes mellitus type: type 1 Diabetes mellitus complication status: with hyperglycemia Qualified Code(s): E10.65 - Type 1 diabetes mellitus with hyperglycemia Is this a current diagnosis for this admission?: Yes Plan: A1c is very elevated at 10.5 indicating poor control of diabetes. Patient states that she has labile blood sugars often but is willing to try an addition of a.m. Lantus. Lantus 6 units in the morning and continue patient's 14 units at night. Monitor blood sugars carefully. - Time Time Spent with patient: Less than 15 minutes Anticipated discharge: Home with Homehealth Within: within 24 hours
[2020-02-02] MEDS ORDERED: NORMAL SALINE 1000 ML 1,000 ML IV PRN (15:27)
--- NOTE | 2020-02-02 17:26 | PDOC CONSULTATION ---
Consultation Consult Date: 02/02/20 Provider Consulted: AUDRA BOOKER Consult reason:: left hand infection History of Present Illness Admission Date/PCP: 01/28/20 20:18 LUIS CARLOS ROBERTS DO Patient complains of: Left hand infection History of Present Illness: MAGNUS LEONARDO is a 64 year old female with long history of diabetes. According to the patient she began having redness swelling and pain in her hand 01/23/2020. She was admitted to the hospital service on 01/29/2020 due to infection. MRI revealed myositis/cellulitis she underwent operative intervention on 01/31/2020 where abscess was irrigated and debrided from a dorsal approach. At date of admission patient's pain was 7/10 but has improved since most recent irrigation debridement however she continues to have redness and pain along with drainage. Patient denies fever/chills/sweats. Intraoperative cultures demonstrated group B strep along with gram-positive cocci. Patient currently on IV Rocephin. Does note numbness and tingling in the fingers which is somewhat chronic secondary to her diabetes. Past Medical History Cardiac Medical History: Reports: Myocardial Infarction Endocrine Medical History: Reports: Diabetes Mellitus Type 1 Past Surgical History Past Surgical History: Reports: Section - x2, Orthopedic Surgery - right arm Social History Smoking Status: Never Smoker Electronic Cigarette use?: No Frequency of Alcohol Use: None Hx Recreational Drug Use: No Drugs: None Hx Prescription Drug Abuse: No - Advance Directive Resuscitation Status: Full Code Family History Family History: Hypertension Parental Family History Reviewed: No Children Family History Reviewed: No Sibling(s) Family History Reviewed.: No Medication/Allergy Home Medications: Insulin Glargine,Hum.rec.anlog [Lantus Insulin 100 Unit/mL] 14 units SUBCUT QPM 10/16/18 Insulin Lispro [Humalog] 0 units SUBCUT .SLIDING SCALE 10/16/18 Levothyroxine Sodium [Synthroid 0.05 mg Tablet] 50 mcg PO DAILY 10/16/18 Sennosides [Senna] 1 tab PO QHS 10/16/18 Simvastatin [Zocor 40 mg Tablet] 40 mg PO QHS 01/28/20 Allergies/Adverse Reactions: lisinopril Allergy (Verified 05/13/19 09:03) Opioids - Morphine Analogues Adverse Reaction (Verified 01/28/20 16:15) Review of Systems Constitutional: ABSENT: chills, fever(s), headache(s), weight gain, weight loss Eyes: ABSENT: visual disturbances Ears: ABSENT: hearing changes Cardiovascular: ABSENT: chest pain, dyspnea on exertion, edema, orthropnea, pal pitations Respiratory: ABSENT: cough, hemoptysis Gastrointestinal: ABSENT: abdominal pain, constipation, diarrhea, hematemesis, hematochezia, nausea, vomiting Genitourinary: ABSENT: dysuria, hematuria Musculoskeletal: PRESENT: as per HPI Integumentary: ABSENT: rash, wounds Neurological: ABSENT: abnormal gait, abnormal speech, confusion, dizziness, focal weakness, syncope Psychiatric: ABSENT: anxiety, depression, homidical ideation, suicidal ideation Endocrine: ABSENT: cold intolerance, heat intolerance, menstrual abnormalities, polydipsia, polyuria Hematologic/Lymphatic: ABSENT: easy bleeding, easy bruising, lymphadenopathy Physical Exam Vital Signs: Temp Pulse Resp BP Pulse Ox 97.4 F 89 16 131/88 H 90 L 02/02/20 15:33 02/02/20 15:33 02/02/20 15:33 02/02/20 15:33 02/02/20 15:33 Intake & Output 02/01/20 02/02/20 02/03/20 06:59 06:59 06:59 Intake Total 4130 1570 650 Output Total 440 250 Balance 3690 1320 650 Weight 60.8 kg 61.3 kg General appearance: PRESENT: no acute distress, well-developed, well-nourished Head exam: PRESENT: atraumatic, normocephalic Eye exam: PRESENT: conjunctiva pink, EOMI, PERRLA. ABSENT: scleral icterus Ear exam: PRESENT: normal external ear exam Mouth exam: PRESENT: moist, tongue midline Neck exam: PRESENT: full ROM. ABSENT: carotid bruit, JVD, lymphadenopathy, thyromegaly Cardiovascular exam: PRESENT: RRR. ABSENT: diastolic murmur, rubs, systolic murmur Pulses: PRESENT: normal dorsalis pedis pul, +2 pedal pulses bilateral Vascular exam: PRESENT: normal capillary refill GI/Abdominal exam: PRESENT: normal bowel sounds, soft. ABSENT: distended, guarding, mass, organolmegaly, rebound, tenderness Rectal exam: PRESENT: deferred Musculoskeletal exam: PRESENT: other - Left hand: Transverse incision on the dorsum of the hand. Erythema noted extending to the third proximal phalanx distally and approximately 2 cm around the incision site. There is mild dehiscence of the incision site no evidence of exposed tendon. Mild cloudy drainage noted minimal expressible drainage. No tenderness along the thenar eminence or volarly. No tenderness on the flexor sheath. Pain with terminal flexion/extension of the MCP joint no pain with gentle range of motion. Passive PIP joint range of motion index through small finger 0 degrees / 90 degrees MP joint range of motion 0 degrees / 45 degrees. No pain with passive stretch. No evidence of fusiform swelling throughout the digits. Neurological exam: PRESENT: alert, awake, oriented to person, oriented to place, oriented to time, oriented to situation, CN II-XII grossly intact. ABSENT: motor sensory deficit Psychiatric exam: PRESENT: appropriate affect, normal mood. ABSENT: homicidal ideation, suicidal ideation Skin exam: PRESENT: dry, intact, warm. ABSENT: cyanosis, rash Results Laboratory Results: 02/02/20 05:39 02/01/20 05:24 02/02/20 05:39 WBC 20.7 H RBC 2.97 L Hgb 9.4 L Hct 27.2 L MCV 92 MCH 31.6 MCHC 34.5 RDW 13.2 Plt Count 494 H Seg Neutrophils % Not Reportable 01/31/20 09:49 Hand - Abscess Gram Stain - Final 01/31/20 09:49 Hand - Abscess Wound Culture - Final Group B Beta Streptococcus No Anaerobic Organisms 01/31/20 09:47 Hand - Abscess Gram Stain - Final 01/31/20 09:47 Hand - Abscess Wound Culture - Final Group B Beta Streptococcus No Anaerobic Organisms 01/31/20 10:06 Foot - Abscess Gram Stain - Final 01/31/20 09:45 Hand - Abscess Gram Stain - Final 01/31/20 09:45 Hand - Abscess Wound Culture - Final Group B Beta Streptococcus No Anaerobic Organisms Impressions: Foot X-Ray 01/28/20 17:59 IMPRESSION: Ulcer at the base of the 5th metatarsal without gross plain film evidence of osteomyelitis Charcot foot with collapse of the plantar arch and lateral subluxation of the 2nd through 5th metatarsals, similar compared to previous studies Hand X-Ray 01/28/20 17:59 IMPRESSION: Diffuse soft tissue swelling of the left hand. No underlying fracture or radiopaque foreign body Lower Extremity MRI 01/29/20 00:00 IMPRESSION: 1. Abnormal signal within the first, second and third metatarsal heads, which may represent osteomyelitis in the correct clinical setting. 2. Focal soft tissue ulceration and swelling along the lateral aspect of the midfoot. Upper Extremity MRI 01/29/20 00:00 IMPRESSION: 1. No evidence of acute osteomyelitis of the third digit. 2. Diffuse myositis which may be infectious or reactive. 3. Diffuse soft tissue swelling of the left hand which may represent cellulitis. PICC Line Insertion 02/02/20 07:00 IMPRESSION: SUCCESSFUL PLACEMENT OF A 5 FR DUAL LUMEN 28 CM PICC IN THE RIGHT BASILIC VEIN. Status: Image reviewed by me - Patient's preoperative x-rays and MRI have been reviewed which demonstrates myositis/cellulitis no definitive evidence of underlying abscess. Assessment & Plan - Diagnosis (1) Abscess of left hand Is this a current diagnosis for this admission?: Yes Plan: I have reviewed patient's operative report and previous documentation MRI demonstrates no evidence of definitive abscess there is no evidence of thenar abscess however she continues to have cloudy drainage. Intraoperative report demonstrates successful evacuation of underlying abscess. Given patient's underlying diabetes she is at high risk for recurrent infection despite adequate irrigation and debridement. Currently she is on IV Rocephin however culture results are indicative of underlying group B strep and gram-positive cocci which may be MRSA variant thus would recommend starting the patient on MRSA coverage along with anaerobic coverage despite no anaerobes given the polymicrobial nature of diabetic infections. Currently there is no clinical signs of recurrent deep abscess, thenar abscess, mid palmar space abscess. At this point will continue daily soaks. Depending on patient's change in clinical picture she may require additional operative treatment. Patient will be continued to be followed by primary orthopedic consultation we will continue to monitor patient clinically via communication with primary orthopedic consult. If patient's clinical picture is worsening would recommend additional irrigation and debridement.
[2020-02-02] MEDS: SENNOSIDES/DOCUSATE 8.6-50 MG 1 EACH TABLET PO SCH (21:39)
[2020-02-02] MEDS: SIMVASTATIN 40 MG TABLET PO SCH (21:39)
[2020-02-02] MEDS: NORMAL SALINE 10 ML SDV (SCHEDULED) IV SCH (21:40)
[2020-02-03] MEDS: NORMAL SALINE 10 ML SDV (AFTER EACH USE) IV PRN ×2 (02:07→04:09)
[2020-02-03] MEDS: ACETAMINOPHEN 325 MG TABLET PO PRN ×3 (02:10→20:05)
[2020-02-03] MEDS: ONDANSETRON HCL INJ/PF 4 MG/2 ML SDV IV PRN (04:10)
[2020-02-03 05:01] LABS: ABSOLUTE LYMPHOCYTES (AUTO) 2.2 10^3/uL (0.5-4.7); ABSOLUTE MONOCYTES (AUTO) 1.2 10^3/uL (0.1-1.4); ABSOLUTE NEUT (AUTO) 12.9 10^3/uL (1.7-8.2); BASOPHILS % (AUTO) 0.2 % (0-2); EOSINOPHILS % (AUTO) 0.3 % (0-6); HEMATOCRIT 26.7 % (36.0-47.0); HEMOGLOBIN 9.2 g/dL (12.0-15.5); LYMPHOCYTES % (AUTO) 13.2 % (13-45); MEAN CORPUSCULAR HEMOGLOBIN 31.7 pg (27.0-33.4); MEAN CORPUSCULAR HGB CONC 34.3 g/dL (32.0-36.0); MEAN CORPUSCULAR VOLUME 92 fl (80-97); MONOCYTES % (AUTO) 7.5 % (3-13); PLATELET COUNT 494 10^3/uL (150-450); RED BLOOD COUNT 2.89 10^6/uL (3.72-5.28); RED CELL DISTRIBUTION WIDTH 12.8 % (11.5-14.0); SEGMENTED NEUTROPHILS % (AUTO) 78.8 % (42-78); TOTAL CELLS COUNTED % (AUTO) 100 %; WHITE BLOOD COUNT 16.3 10^3/uL (4.0-10.5)
[2020-02-03] MEDS: HEPARIN SOD (PORCINE) 5,000 UNIT/ML 1 ML VIAL SUBCUT SCH ×3 (05:56→21:17)
--- NOTE | 2020-02-03 07:49 | PDOC PROGRESS REPORT ---
Subjective Progress Note for:: 02/03/20 Subjective:: Patient reports no interval changes aside from mild improvement and ability to move her fingers. She does report that she is regularly performing full range of motion passively to her left upper extremity. No other acute changes or worsening symptoms overnight. She continues to have some hand pain with terminal range of motion, denies any right foot pain. Reason For Visit: SEPSIS,FOOT AND HAND CELLULITIS Physical Exam Vital Signs: Temp Pulse Resp BP Pulse Ox 98.2 F 86 18 112/46 L 91 L 02/03/20 03:54 02/03/20 03:54 02/03/20 03:54 02/03/20 03:54 02/03/20 03:54 Intake & Output 02/02/20 02/03/20 02/04/20 06:59 06:59 06:59 Intake Total 1570 1872 Output Total 250 Balance 1320 1872 Weight 61.3 kg 61.3 kg Physical Exam: General appearance: PRESENT: no acute distress, cooperative, well-nourished Head exam: PRESENT: atraumatic, normocephalic Eye exam: PRESENT: EOMI Ear exam: PRESENT: normal external ear exam Mouth exam: PRESENT: neck supple Neck exam: ABSENT: tracheal deviation Respiratory exam: PRESENT: symmetrical, unlabored. ABSENT: accessory muscle use, wheezes Pulses: PRESENT: normal radial pulses, normal dorsalis pedis pulse Vascular exam: PRESENT: normal capillary refill GI/Abdominal exam: ABSENT: distended, firm Extremities exam: PRESENT: full ROM of bilateral shoulders, elbows wrists, knees, hips and ankles without pain, limited range of motion of the left hand and digits due to severe swelling. Limited range of motion of the right foot and digits due to swelling, erythema and drainage. Neurological exam: PRESENT: alert, awake, oriented to person, oriented to place, oriented to time Psychiatric exam: PRESENT: appropriate affect. ABSENT: agitated Focused psych exam: ABSENT: catatonic Skin exam: PRESENT: intact. ABSENT: dry All as above aside from that noted in the HPI and the following: Left upper extremity Sensation grossly intact, motor function grossly intact. Range of motion limited due to severe pain. There is swelling and erythema present and the palm as well as the dorsum of the hand between the wrist joint and the PIP joints diffusely. The patient still has an intrinsic position of the hand however there is no fusiform swelling or signs of tendon sheath involvement, no proximal erythema progression. No overt changes over exam yesterday in regards to erythema regression or improvement in pain and range of motion, however no worsening either. Capillary refill is less than 2 seconds. Wound with some drainage in the dressing. Right lower extremity, patient has prior surgical scars in the heel and foot that are well-healed. She has little sensation of her foot into the heel, motor function is grossly intact. Capillary refill is less than 2 seconds, distal pulses are 1+. Wound vacs in place with minimal output. Results Laboratory Results: 02/03/20 04:14 02/01/20 05:24 02/03/20 04:14 WBC 16.3 H RBC 2.89 L Hgb 9.2 L Hct 26.7 L MCV 92 MCH 31.7 MCHC 34.3 RDW 12.8 Plt Count 494 H Seg Neutrophils % 78.8 H 01/28/20 20:00 Blood Blood Culture - Final NO GROWTH IN 5 DAYS 01/28/20 18:40 Blood Blood Culture - Final NO GROWTH IN 5 DAYS 01/31/20 09:49 Hand - Abscess Gram Stain - Final 01/31/20 09:49 Hand - Abscess Wound Culture - Final Group B Beta Streptococcus No Anaerobic Organisms 01/31/20 09:47 Hand - Abscess Gram Stain - Final 01/31/20 09:47 Hand - Abscess Wound Culture - Final Group B Beta Streptococcus No Anaerobic Organisms 01/31/20 10:06 Foot - Abscess Gram Stain - Final 01/31/20 09:45 Hand - Abscess Gram Stain - Final 01/31/20 09:45 Hand - Abscess Wound Culture - Final Group B Beta Streptococcus No Anaerobic Organisms Impressions: Foot X-Ray 01/28/20 17:59 IMPRESSION: Ulcer at the base of the 5th metatarsal without gross plain film evidence of osteomyelitis Charcot foot with collapse of the plantar arch and lateral subluxation of the 2nd through 5th metatarsals, similar compared to previous studies Hand X-Ray 01/28/20 17:59 IMPRESSION: Diffuse soft tissue swelling of the left hand. No underlying fracture or radiopaque foreign body Lower Extremity MRI 01/29/20 00:00 IMPRESSION: 1. Abnormal signal within the first, second and third metatarsal heads, which may represent osteomyelitis in the correct clinical setting. 2. Focal soft tissue ulceration and swelling along the lateral aspect of the midfoot. Upper Extremity MRI 01/29/20 00:00 IMPRESSION: 1. No evidence of acute osteomyelitis of the third digit. 2. Diffuse myositis which may be infectious or reactive. 3. Diffuse soft tissue swelling of the left hand which may represent cellulitis. PICC Line Insertion 02/02/20 07:00 IMPRESSION: SUCCESSFUL PLACEMENT OF A 5 FR DUAL LUMEN 28 CM PICC IN THE RIGHT BASILIC VEIN. Assessment & Plan - Diagnosis (1) Cellulitis of hand, left Is this a current diagnosis for this admission?: Yes (2) Diabetes Qualifiers: Diabetes mellitus type: type 1 Diabetes mellitus complication status: with hyperglycemia Qualified Code(s): E10.65 - Type 1 diabetes mellitus with hyperglycemia Is this a current diagnosis for this admission?: Yes (3) Diabetic infection of right foot Is this a current diagnosis for this admission?: Yes Plan: Wound VAC changes performed every 3 days, should be changed today. To new wound VAC changes and leave wound VAC in place until evaluation by Dr. Madison at the wound care clinic. (4) Charcot's joint of right foot Is this a current diagnosis for this admission?: Yes (6) Abscess of left hand Is this a current diagnosis for this admission?: Yes Plan: At this time we will plan to continue monitoring. Will need additional antibiotic coverage for gram-positive cocci and given the polymicrobial infection potentially modifying coverage for anaerobes as well, as suggested by Dr. Rolle. -A precaution, we can place her n.p.o. tonight for potential repeat I&D tomorrow -Continue chlorhexidine soaks twice daily 30 minutes at a time with dilute chlorhexidine and warm saline - Time Time Spent with patient: Less than 15 minutes
[2020-02-03] MEDS: INSULIN LISPRO 100 UNIT/ML 3 ML VIAL SUBCUT SCH ×3 (08:09→16:39)
[2020-02-03] MEDS: METOCLOPRAMIDE HCL INJ/PF 10 MG/2 ML SDV IV PRN (08:12)
[2020-02-03] MEDS: INSULIN GLARGINE,HUM.REC.ANLOG 1,000 UNIT/10 ML VIAL SUBCUT SCH ×2 (08:13→21:18)
[2020-02-03] MEDS: CEFTRIAXONE 2 GM/D5W RTU 2 GM/50 ML RTUPB IV SCH (09:23)
[2020-02-03] MEDS: LEVOTHYROXINE SODIUM 0.05 MG TABLET PO SCH (09:23)
[2020-02-03] MEDS: NORMAL SALINE 10 ML SDV (SCHEDULED) IV SCH ×2 (09:27→21:17)
[2020-02-03] MEDS ORDERED: CLINDAMYCIN HCL 150 MG CAPSULE PO SCH (14:00)
--- NOTE | 2020-02-03 16:41 | Progress Note ---
Provider Note Provider Note: [facility] ID Telephone Advice Consultation Chart reviewed. Patient is a 64-year-old woman with DM 1, PVD, CAD, who was admitted due to worsening right foot and left hand wounds. Patient has had a chronic ulcer in the right foot for > 1y. It recently started to drain more, she presented erythema and also had fever. She was evaluated in the ED on 01/27 and found septic. She was started on vancomycin and cefepime. She had an X ray of the left hand and right foot, no evidence of osteomyelitis. Patient was evaluated by orthopedics on 01/28 who recommended MRI of both extremities. MRI of the left hand demonstrated diffuse myositis and ST swelling. Right foot MRI demonstrated abnormal signal on - MTs suspicious for osteomyelitis. She is s/p I&D on 01/30. Cultures growing GBS and a GPC in clusters. Blood cultures remain negative. There were previous right foot vultures with Proteus, MSSA and GBS in 08/2019. Patient is now on ceftriaxone. ID consulted for recommendations. PMH: DM1 PVD CAD PSH: Angioplasty Partial digit amputation Allergies: lisinopril Allergy (Verified 05/13/19 09:03) Opioids - Morphine Analogues Adverse Reaction (Verified 01/28/20 16:15) Medications: Insulin Glargine,Hum.rec.anlog [Lantus Insulin 100 Unit/mL] 14 units SUBCUT QPM 10/16/18 Insulin Lispro [Humalog] 0 units SUBCUT .SLIDING SCALE 10/16/18 Levothyroxine Sodium [Synthroid 0.05 mg Tablet] 50 mcg PO DAILY 10/16/18 Sennosides [Senna] 1 tab PO QHS 10/16/18 Simvastatin [Zocor 40 mg Tablet] 40 mg PO QHS 01/28/20 Vital Signs: Temp Pulse Resp BP Pulse Ox 97.4 F 86 17 138/62 H 94 02/03/20 11:29 02/03/20 11:29 02/03/20 11:29 02/03/20 13:00 02/03/20 11:29 Intake & Output 02/02/20 02/03/20 02/04/20 06:59 06:59 06:59 Intake Total 1570 1872 410 Output Total 250 Balance 1320 1872 410 Weight 61.3 kg 61.3 kg Weight/Height Weight 61.3 kg Height 5 ft 2 in Laboratories: 02/03/20 04:14 02/01/20 05:24 MCV 92 fl (80-97) 02/03/20 04:14 MCH 31.7 pg (27.0-33.4) 02/03/20 04:14 MCHC 34.3 g/dL (32.0-36.0) 02/03/20 04:14 RDW 12.8 % (11.5-14.0) 02/03/20 04:14 Seg Neutrophils % 78.8 % (42-78) H 02/03/20 04:14 Chloride 105 mmol/L (98-107) 02/01/20 05:24 Carbon Dioxide 24 mmol/L (22-30) 02/01/20 05:24 Anion Gap 6 (5-19) 02/01/20 05:24 Est GFR ( Amer) > 60 (>60) 02/01/20 05:24 Glucose 221 mg/dL (75-110) H 02/01/20 05:24 Lactic Acid 1.3 mmol/L (0.7-2.1) 01/28/20 18:40 Calcium 8.1 mg/dL (8.4-10.2) L 02/01/20 05:24 Magnesium 2.0 mg/dL (1.6-2.3) 02/01/20 05:24 Total Bilirubin 0.4 mg/dL (0.2-1.3) 01/28/20 18:40 AST 20 U/L (14-36) 01/28/20 18:40 Alkaline Phosphatase 180 U/L (38-126) H 01/28/20 18:40 C-Reactive Protein 185.1 mg/L (<10.0) H 01/30/20 05:03 Total Protein 6.9 g/dL (6.3-8.2) 01/28/20 18:40 Albumin 3.4 g/dL (3.5-5.0) L 01/28/20 18:40 01/31/20 10:08 Foot - Abscess Gram Stain - Final 01/31/20 10:08 Foot - Abscess Wound Culture - Final Group B Beta Streptococcus Staphylococcus Lugdunensis No Anaerobic Organisms 01/31/20 10:06 Foot - Abscess Gram Stain - Final 01/31/20 10:06 Foot - Abscess Wound Culture - Final Group B Beta Streptococcus Staphylococcus Lugdunensis No Anaerobic Organisms 01/28/20 20:00 Blood Blood Culture - Final NO GROWTH IN 5 DAYS 01/28/20 18:40 Blood Blood Culture - Final NO GROWTH IN 5 DAYS 01/31/20 09:49 Hand - Abscess Gram Stain - Final 01/31/20 09:49 Hand - Abscess Wound Culture - Final Group B Beta Streptococcus No Anaerobic Organisms 01/31/20 09:47 Hand - Abscess Gram Stain - Final 01/31/20 09:47 Hand - Abscess Wound Culture - Final Group B Beta Streptococcus No Anaerobic Organisms 01/31/20 09:45 Hand - Abscess Gram Stain - Final 01/31/20 09:45 Hand - Abscess Wound Culture - Final Group B Beta Streptococcus No Anaerobic Organisms Radiology: Foot X-Ray 01/28/20 17:59 IMPRESSION: Ulcer at the base of the 5th metatarsal without gross plain film evidence of osteomyelitis Charcot foot with collapse of the plantar arch and lateral subluxation of the 2nd through 5th metatarsals, similar compared to previous studies Hand X-Ray 01/28/20 17:59 IMPRESSION: Diffuse soft tissue swelling of the left hand. No underlying fracture or radiopaque foreign body Lower Extremity MRI 01/29/20 00:00 IMPRESSION: 1. Abnormal signal within the first, second and third metatarsal heads, which may represent osteomyelitis in the correct clinical setting. 2. Focal soft tissue ulceration and swelling along the lateral aspect of the midfoot. Upper Extremity MRI 01/29/20 00:00 IMPRESSION: 1. No evidence of acute osteomyelitis of the third digit. 2. Diffuse myositis which may be infectious or reactive. 3. Diffuse soft tissue swelling of the left hand which may represent cellulitis. PICC Line Insertion 02/02/20 07:00 IMPRESSION: SUCCESSFUL PLACEMENT OF A 5 FR DUAL LUMEN 28 CM PICC IN THE RIGHT BASILIC VEIN. Assessment and Recommendations: Patient with multiple comorbidities including PVD and DM1 presented with upper and lower extremities abscesses. Left hand had an abscess s/p I&D with GBS and probably Staphylococcus spp. Right foot with infected ulcer extending to deep tissues. Culture also positive for GBS and probably Staphylococcus spp. It is odd that patient had 2 different sites infected with the same organisms. Even though her blood cultures were negative, this is behaving as hematogenous dissemination of infection. She did receive doxycycline prior to admission, that might have compromised the yield of the blood cultures. Considering that MRI was concerning for right foot osteomyelitis but no bone involvement per surgical note (covered by extensive fascia), will recommend treatment for a minimum of 3 weeks if source control has been achieved. We still should wait for cultures to be final in order to better choose antibiotics to cover all organisms causing this infection. GPC has been identified as Staphylococcus lugdunensis, which is as dangerous as Staph aureus, fortunately it is oxacillin susceptible. Ceftriaxone is a reasonable option for now, may add metronidazole until cultures are final as some anaerobes may take longer to grow. She may need further I&D, will wait for ortho final recommendations to determine optimal duration of therapy (3-6 weeks). Patient already has a PICC line in place. Erica Wells MD [facility] ID [phone]
[2020-02-03] MEDS: METRONIDAZOLE 500 MG/NS RTU 500 MG/100 ML RTUPB IV SCH (17:23)
[2020-02-03] MEDS ORDERED: GLUCAGON,HUMAN RECOMB 1 MG INJ SUBCUT PRN (18:00)
[2020-02-03] MEDS ORDERED: DEXTROSE 50%-WATER 25 GM/50 ML DISP.SYRIN IV PRN ×2 (18:00)
[2020-02-03] MEDS ORDERED: DEXTROSE 40% GEL 15 GM TUBE PO PRN ×2 (18:00)
--- NOTE | 2020-02-03 18:27 | PDOC PROGRESS REPORT ---
Subjective Progress Note for:: 02/03/20 Subjective:: No adverse events overnight. Vital signs have been stable. Infectious diseases is consulted on this case and the antibiotic recommendations are noted. She is been eating and drinking well. Reason For Visit: SEPSIS,FOOT AND HAND CELLULITIS Physical Exam Vital Signs: Temp Pulse Resp BP Pulse Ox 98.5 F 87 17 126/71 H 97 02/03/20 15:47 02/03/20 15:47 02/03/20 15:47 02/03/20 15:47 02/03/20 15:47 Intake & Output 02/02/20 02/03/20 02/04/20 06:59 06:59 06:59 Intake Total 1570 1872 770 Output Total 250 Balance 1320 1872 770 Weight 61.3 kg 61.3 kg General appearance: PRESENT: no acute distress, cooperative Neck exam: ABSENT: JVD Respiratory exam: PRESENT: clear to auscultation naz, unlabored. ABSENT: tachypnea, wheezes Cardiovascular exam: PRESENT: RRR, +S1, +S2. ABSENT: tachycardia GI/Abdominal exam: PRESENT: soft. ABSENT: rebound, rigid, tenderness Extremities exam: PRESENT: other - Wound VAC placed on right Charcot foot with trace erythema surrounding the wound, sterile gauze bandage on left hand covering the dorsal aspect with dark erythema apparent proximal to the PIP joints Neurological exam: PRESENT: alert, awake, oriented to person, oriented to place, oriented to time, oriented to situation Results Laboratory Results: 02/03/20 04:14 02/01/20 05:24 02/03/20 04:14 WBC 16.3 H RBC 2.89 L Hgb 9.2 L Hct 26.7 L MCV 92 MCH 31.7 MCHC 34.3 RDW 12.8 Plt Count 494 H Seg Neutrophils % 78.8 H 01/31/20 10:08 Foot - Abscess Gram Stain - Final 01/31/20 10:08 Foot - Abscess Wound Culture - Final Group B Beta Streptococcus Staphylococcus Lugdunensis No Anaerobic Organisms 01/31/20 10:06 Foot - Abscess Gram Stain - Final 01/31/20 10:06 Foot - Abscess Wound Culture - Final Group B Beta Streptococcus Staphylococcus Lugdunensis No Anaerobic Organisms 01/28/20 20:00 Blood Blood Culture - Final NO GROWTH IN 5 DAYS 01/28/20 18:40 Blood Blood Culture - Final NO GROWTH IN 5 DAYS 01/31/20 09:49 Hand - Abscess Gram Stain - Final 01/31/20 09:49 Hand - Abscess Wound Culture - Final Group B Beta Streptococcus No Anaerobic Organisms 01/31/20 09:47 Hand - Abscess Gram Stain - Final 01/31/20 09:47 Hand - Abscess Wound Culture - Final Group B Beta Streptococcus No Anaerobic Organisms Impressions: Foot X-Ray 01/28/20 17:59 IMPRESSION: Ulcer at the base of the 5th metatarsal without gross plain film evidence of osteomyelitis Charcot foot with collapse of the plantar arch and lateral subluxation of the 2nd through 5th metatarsals, similar compared to previous studies Hand X-Ray 01/28/20 17:59 IMPRESSION: Diffuse soft tissue swelling of the left hand. No underlying fracture or radiopaque foreign body Lower Extremity MRI 01/29/20 00:00 IMPRESSION: 1. Abnormal signal within the first, second and third metatarsal heads, which may represent osteomyelitis in the correct clinical setting. 2. Focal soft tissue ulceration and swelling along the lateral aspect of the midfoot. Upper Extremity MRI 01/29/20 00:00 IMPRESSION: 1. No evidence of acute osteomyelitis of the third digit. 2. Diffuse myositis which may be infectious or reactive. 3. Diffuse soft tissue swelling of the left hand which may represent cellulitis. PICC Line Insertion 02/02/20 07:00 IMPRESSION: SUCCESSFUL PLACEMENT OF A 5 FR DUAL LUMEN 28 CM PICC IN THE RIGHT BASILIC VEIN. Assessment and Plan - Diagnosis (1) Abscess of left hand Is this a current diagnosis for this admission?: Yes Plan: This appears to be hematogenous spread from the foot wound, interestingly enough. She was switched over to Rocephin yesterday, and infectious disease weighed in today and said that this was probably okay for now, and recommended the addition of metronidazole over the clindamycin that have been started. These changes have been made. She will possibly go back to the OR for a second debridement tomorrow. (2) Osteomyelitis of right foot Qualifiers: Osteomyelitis type: other acute Qualified Code(s): M86.171 - Other acute osteomyelitis, right ankle and foot Is this a current diagnosis for this admission?: Yes Plan: She has a wound VAC on the foot with antibiotics as noted above. We will give t he cultures a few more days to see anything grows out before we make definitive choices on home antibiotics, which she will probably need for about 4 weeks at least. (3) Type 2 diabetes mellitus with Charcot's joint of right foot Is this a current diagnosis for this admission?: Yes Plan: Insulin sliding scale combined with diabetic diet to achieve glucose control - Time Time Spent with patient: 15-24 minutes
[2020-02-03] MEDS: SIMVASTATIN 40 MG TABLET PO SCH (21:17)
[2020-02-03] MEDS: SENNOSIDES/DOCUSATE 8.6-50 MG 1 EACH TABLET PO SCH (21:17)
[2020-02-04] MEDS: METRONIDAZOLE 500 MG/NS RTU 500 MG/100 ML RTUPB IV SCH ×5 (00:07→23:00)
[2020-02-04] MEDS: HEPARIN SOD (PORCINE) 5,000 UNIT/ML 1 ML VIAL SUBCUT SCH ×3 (05:40→22:34)
[2020-02-04] MEDS: INSULIN LISPRO 100 UNIT/ML 3 ML VIAL SUBCUT SCH ×3 (07:33→18:44)
[2020-02-04] MEDS: ONDANSETRON HCL INJ/PF 4 MG/2 ML SDV IV PRN (08:05)
[2020-02-04] MEDS: NORMAL SALINE 10 ML SDV (AFTER EACH USE) IV PRN (08:08)
--- NOTE | 2020-02-04 09:13 | PDOC PROGRESS REPORT ---
Subjective Progress Note for:: 02/04/20 Subjective:: The patient reports worsening pain and swelling overnight, decreased ability to move her fingers. NO other acute changes. No fever or chills. Reason For Visit: SEPSIS,FOOT AND HAND CELLULITIS Physical Exam Vital Signs: Temp Pulse Resp BP Pulse Ox 98.3 F 88 18 119/61 92 02/03/20 23:57 02/03/20 23:57 02/03/20 23:57 02/03/20 23:57 02/03/20 23:57 Intake & Output 02/03/20 02/04/20 02/05/20 06:59 06:59 06:59 Intake Total 1872 970 100 Balance 1872 970 100 Weight 61.3 kg 61.3 kg Physical Exam: General appearance: PRESENT: no acute distress, cooperative, well-nourished Head exam: PRESENT: atraumatic, normocephalic Eye exam: PRESENT: EOMI Ear exam: PRESENT: normal external ear exam Mouth exam: PRESENT: neck supple Neck exam: ABSENT: tracheal deviation Respiratory exam: PRESENT: symmetrical, unlabored. ABSENT: accessory muscle use, wheezes Pulses: PRESENT: normal radial pulses, normal dorsalis pedis pulse Vascular exam: PRESENT: normal capillary refill GI/Abdominal exam: ABSENT: distended, firm Extremities exam: PRESENT: full ROM of bilateral shoulders, elbows wrists, knees, hips and ankles without pain, limited range of motion of the left hand and digits due to severe swelling. Limited range of motion of the right foot and digits due to swelling, erythema and drainage. Neurological exam: PRESENT: alert, awake, oriented to person, oriented to place, oriented to time Psychiatric exam: PRESENT: appropriate affect. ABSENT: agitated Focused psych exam: ABSENT: catatonic Skin exam: PRESENT: intact. ABSENT: dry All as above aside from that noted in the HPI and the following: Left upper extremity Sensation grossly intact, motor function grossly intact. Range of motion limited due to severe pain. There is swelling and erythema present and the palm as well as the dorsum of the hand between the wrist joint and the PIP joints diffusely. The patient still has an intrinsic position of the hand, however there is no fusiform swelling or signs of tendon sheath involvement, no proximal erythema progression. Capillary refill is less than 2 seconds. Wound with purulent drainage in to dressing today, increased expression Increased pain to palpation and ROM Right lower extremity, patient has prior surgical scars in the heel and foot that are well-healed. She has little sensation of her foot into the heel, motor function is grossly intact. Capillary refill is less than 2 seconds, distal pulses are 1+. Wound vacs in place with minimal output. Results Laboratory Results: 02/03/20 04:14 02/01/20 05:24 01/31/20 10:08 Foot - Abscess Gram Stain - Final 01/31/20 10:08 Foot - Abscess Wound Culture - Final Group B Beta Streptococcus Staphylococcus Lugdunensis No Anaerobic Organisms 01/31/20 10:06 Foot - Abscess Gram Stain - Final 01/31/20 10:06 Foot - Abscess Wound Culture - Final Group B Beta Streptococcus Staphylococcus Lugdunensis No Anaerobic Organisms Impressions: Foot X-Ray 01/28/20 17:59 IMPRESSION: Ulcer at the base of the 5th metatarsal without gross plain film evidence of osteomyelitis Charcot foot with collapse of the plantar arch and lateral subluxation of the 2nd through 5th metatarsals, similar compared to previous studies Hand X-Ray 01/28/20 17:59 IMPRESSION: Diffuse soft tissue swelling of the left hand. No underlying fracture or radiopaque foreign body Lower Extremity MRI 01/29/20 00:00 IMPRESSION: 1. Abnormal signal within the first, second and third metatarsal heads, which may represent osteomyelitis in the correct clinical setting. 2. Focal soft tissue ulceration and swelling along the lateral aspect of the midfoot. Upper Extremity MRI 01/29/20 00:00 IMPRESSION: 1. No evidence of acute osteomyelitis of the third digit. 2. Diffuse myositis which may be infectious or reactive. 3. Diffuse soft tissue swelling of the left hand which may represent cellulitis. PICC Line Insertion 02/02/20 07:00 IMPRESSION: SUCCESSFUL PLACEMENT OF A 5 FR DUAL LUMEN 28 CM PICC IN THE RIGHT BASILIC VEIN. Assessment & Plan - Diagnosis (1) Cellulitis of hand, left Is this a current diagnosis for this admission?: Yes (2) Diabetes Qualifiers: Diabetes mellitus type: type 1 Diabetes mellitus complication status: with hyperglycemia Qualified Code(s): E10.65 - Type 1 diabetes mellitus with hype rglycemia Is this a current diagnosis for this admission?: Yes (3) Diabetic infection of right foot Is this a current diagnosis for this admission?: Yes (4) Charcot's joint of right foot Is this a current diagnosis for this admission?: Yes (5) Type 2 diabetes mellitus with Charcot's joint of right foot Is this a current diagnosis for this admission?: Yes (6) Abscess of left hand Is this a current diagnosis for this admission?: Yes Plan: Recurrent purulent drainage and increased pain. Some worsening over the past day. - Will plan on repeat I&D today. - Continue current antibiotics - Continue PT/OT post operatively - Time Time Spent with patient: Less than 15 minutes
[2020-02-04] MEDS: INSULIN GLARGINE,HUM.REC.ANLOG 1,000 UNIT/10 ML VIAL SUBCUT SCH ×2 (09:26→22:34)
[2020-02-04] MEDS: LEVOTHYROXINE SODIUM 0.05 MG TABLET PO SCH (09:35)
[2020-02-04] MEDS: CEFTRIAXONE 2 GM/D5W RTU 2 GM/50 ML RTUPB IV SCH (09:35)
[2020-02-04] MEDS: NORMAL SALINE 10 ML SDV (SCHEDULED) IV SCH ×2 (09:36→22:34)
--- NOTE | 2020-02-04 15:32 | PDOC PROGRESS REPORT ---
Subjective Progress Note for:: 02/04/20 Subjective:: No adverse events overnight. She was complaining of a little bit of abdominal discomfort and bloating but was otherwise doing fine. She was n.p.o. awaiting surgery this morning for the debridement on her left hand. Reason For Visit: SEPSIS,FOOT AND HAND CELLULITIS Physical Exam Vital Signs: Temp Pulse Resp BP Pulse Ox 97.9 F 88 17 141/73 H 95 02/04/20 14:18 02/04/20 14:18 02/04/20 14:18 02/04/20 14:18 02/04/20 14:18 Intake & Output 02/03/20 02/04/20 02/05/20 06:59 06:59 06:59 Intake Total 1872 970 150 Output Total 50 Balance 1872 970 100 Weight 61.3 kg 61.3 kg General appearance: PRESENT: no acute distress, cooperative Neck exam: ABSENT: JVD Respiratory exam: PRESENT: clear to auscultation naz, unlabored. ABSENT: tachypnea, wheezes Cardiovascular exam: PRESENT: RRR, +S1, +S2. ABSENT: tachycardia GI/Abdominal exam: PRESENT: soft. ABSENT: rebound, rigid, tenderness Extremities exam: PRESENT: other - Wound VAC placed on right Charcot foot with trace erythema surrounding the wound, sterile gauze bandage on left hand covering the dorsal aspect with dark erythema apparent proximal to the PIP joints Neurological exam: PRESENT: alert, awake, oriented to person, oriented to place, oriented to time, oriented to situation Results Laboratory Results: 02/03/20 04:14 02/01/20 05:24 02/04/20 09:35 C-Reactive Protein 63.8 H 01/31/20 10:08 Foot - Abscess Gram Stain - Final 01/31/20 10:08 Foot - Abscess Wound Culture - Final Group B Beta Streptococcus Staphylococcus Lugdunensis No Anaerobic Organisms 01/31/20 10:06 Foot - Abscess Gram Stain - Final 01/31/20 10:06 Foot - Abscess Wound Culture - Final Group B Beta Streptococcus Staphylococcus Lugdunensis No Anaerobic Organisms Impressions: Foot X-Ray 01/28/20 17:59 IMPRESSION: Ulcer at the base of the 5th metatarsal without gross plain film evidence of osteomyelitis Charcot foot with collapse of the plantar arch and lateral subluxation of the 2nd through 5th metatarsals, similar compared to previous studies Hand X-Ray 01/28/20 17:59 IMPRESSION: Diffuse soft tissue swelling of the left hand. No underlying fracture or radiopaque foreign body Lower Extremity MRI 01/29/20 00:00 IMPRESSION: 1. Abnormal signal within the first, second and third metatarsal heads, which may represent osteomyelitis in the correct clinical setting. 2. Focal soft tissue ulceration and swelling along the lateral aspect of the midfoot. Upper Extremity MRI 01/29/20 00:00 IMPRESSION: 1. No evidence of acute osteomyelitis of the third digit. 2. Diffuse myositis which may be infectious or reactive. 3. Diffuse soft tissue swelling of the left hand which may represent cellulitis. PICC Line Insertion 02/02/20 07:00 IMPRESSION: SUCCESSFUL PLACEMENT OF A 5 FR DUAL LUMEN 28 CM PICC IN THE RIGHT BASILIC VEIN. Assessment and Plan - Diagnosis (1) Abscess of left hand Is this a current diagnosis for this admission?: Yes Plan: This appears to be hematogenous spread from the foot wound, interestingly enough. She was switched over to Rocephin, and infectious disease weighed in and said that this was probably okay for now, and recommended the addition of metronidazole over the clindamycin that have been started. These changes have been made. She will go back to the OR for a second debridement today. (2) Osteomyelitis of right foot Qualifiers: Osteomyelitis type: other acute Qualified Code(s): M86.171 - Other acute osteomyelitis, right ankle and foot Is this a current diagnosis for this admission?: Yes Plan: She has a wound VAC on the foot with antibiotics as noted above. We will give the cultures a few more days to see anything grows out before we make definitive choices on home antibiotics, which she will probably need for about 4 weeks at least. (3) Type 2 diabetes mellitus with Charcot's joint of right foot Is this a current diagnosis for this admission?: Yes Plan: Insulin sliding scale combined with diabetic diet to achieve glucose control - Time Time Spent with patient: 15-24 minutes
[2020-02-04] MEDS ORDERED: LIDOCAINE 2% INJ-PF (20 MG/ML) 10 ML AMPUL ONE (17:57)
[2020-02-04] MEDS ORDERED: MIDAZOLAM 2 MG/2 ML INJ ONE (17:57)
[2020-02-04] MEDS ORDERED: PROPOFOL INJ 200 MG/20 ML VIAL IV ONE (17:57)
[2020-02-04] MEDS ORDERED: ONDANSETRON HCL INJ/PF 4 MG/2 ML SDV ONE (17:57)
[2020-02-04] MEDS ORDERED: FENTANYL CITRATE INJ/PF 100 MCG/2 ML AMPUL ONE (17:57)
[2020-02-04] MEDS ORDERED: BUPIVACAINE HCL 0.5 % INJ/PF 30 ML SDV ONE (20:00)
[2020-02-04] MEDS ORDERED: LIDOCAINE 2% INJ (20 MG/ML) 20 ML MDV ONE (20:14)
[2020-02-04] MEDS ORDERED: PROMETHAZINE HCL INJ 25 MG/1 ML VIAL IV PRN ×2 (20:26)
[2020-02-04] MEDS ORDERED: ONDANSETRON HCL INJ/PF 4 MG/2 ML SDV IV PRN (20:26)
[2020-02-04] MEDS ORDERED: MEPERIDINE HCL/PF INJ 25 MG/1 ML DISP.SYRIN IV PRN (20:26)
[2020-02-04] MEDS ORDERED: FENTANYL CITRATE INJ/PF 100 MCG/2 ML AMPUL IV PRN ×3 (20:26)
[2020-02-04] MEDS ORDERED: DIPHENHYDRAMINE HCL 50 MG/ML VIAL IV PRN (20:26)
--- NOTE | 2020-02-04 21:39 | Operative Report ---
Operative Report DATE OF SURGERY: 02/04/20 PREOPERATIVE DIAGNOSIS: Deep abscess left hand POSTOPERATIVE DIAGNOSIS: Deep abscess left hand OPERATION: Incision and debridement left hand SURGEON: JELLY ESCOBAR JR ANESTHESIA: Moderate Sedation TISSUE REMOVED OR ALTERED: Cultures taken COMPLICATIONS: None ESTIMATED BLOOD LOSS: 10 cc PROCEDURE: The patient was reevaluated in the hospital this morning. She had dawood purulence draining from the dorsal aspect of her wound with worsening pain and swelling. The decision was made to proceed with repeat I&D of the left hand. The patient was brought to the operating suite and laid supine on the operating table. They are given 2 g Ancef preoperatively. The left upper extremity was prepped and draped in standard sterile fashion. A timeout was performed. A median nerve , ulnar, and radial nerve block was performed. The patient was placed under moderate sedation. After adequate anesthesia, a volar approach through the palm was performed. Bleeders were cauterized with bipolar. Careful dissection was performed to gain access to the deep portion of the hand. Dawood purulence was encountered. Cultures were then taken. Careful dissection allowed for exposure of the deep palm and evaluation of the infection. There did not appear to be any involvement of the surrounding tendon sheaths but it did appear to involve the planes of the deep fascia. Thorough inspection and debridement with Ray-Lorri and curettes was performed. Any nonviable tissue was resected. All potential purulence was expressed volarly and it appeared that we had explored the extent of the abscess. Grossly the tissue did not appear healthy. We then turned our attention to the dorsal wound where the suture was removed and we evaluated the extent of the dorsal involvement. Purulence was expressed from the far ulnar portion of the dorsum of the hand, as well as probing into the subdermal tissue of the third digit dorsally. Purulence was expressed and cultures were taken. The soft tissues were debrided with blunt debridement with a Ray-Lorri and curette. There was communication between the dorsal and volar wound. After removing all nonviable tissue of both the volar and dorsal wound, the wound was copiously irrigated with dilute Betadine solution. A Luis drain was placed into the dermal layer dorsally. A deep Luis drain was placed volarly. The wounds were closed around the Luis drains with running 3-0 nylon suture. A sterile dressing was placed. The patient was awakened from anesthesia and transferred the PACU in stable condition.
[2020-02-04] MEDS: ACETAMINOPHEN 325 MG TABLET PO PRN (22:32)
[2020-02-04] MEDS: SIMVASTATIN 40 MG TABLET PO SCH (22:33)
[2020-02-04] MEDS: SENNOSIDES/DOCUSATE 8.6-50 MG 1 EACH TABLET PO SCH (22:34)
[2020-02-05] MEDS: ONDANSETRON HCL INJ/PF 4 MG/2 ML SDV IV PRN ×3 (01:09→14:22)
[2020-02-05] MEDS: ACETAMINOPHEN 325 MG TABLET PO PRN ×2 (05:10→09:14)
[2020-02-05] MEDS: HEPARIN SOD (PORCINE) 5,000 UNIT/ML 1 ML VIAL SUBCUT SCH ×3 (05:10→22:26)
[2020-02-05] MEDS: METRONIDAZOLE 500 MG/NS RTU 500 MG/100 ML RTUPB IV SCH ×3 (05:10→18:26)
[2020-02-05] MEDS: INSULIN LISPRO 100 UNIT/ML 3 ML VIAL SUBCUT SCH ×3 (07:33→16:51)
[2020-02-05] MEDS: NORMAL SALINE 10 ML SDV (AFTER EACH USE) IV PRN ×2 (07:35→14:49)
[2020-02-05] MEDS: CEFTRIAXONE 2 GM/D5W RTU 2 GM/50 ML RTUPB IV SCH (09:14)
[2020-02-05] MEDS: LEVOTHYROXINE SODIUM 0.05 MG TABLET PO SCH (09:14)
[2020-02-05 09:57] LABS: HEMATOCRIT 27.4 % (36.0-47.0); HEMOGLOBIN 9.5 g/dL (12.0-15.5); MEAN CORPUSCULAR HGB CONC 34.8 g/dL (32.0-36.0); MEAN CORPUSCULAR VOLUME 92 fl (80-97); PLATELET COUNT 617 10^3/uL (150-450); RED BLOOD COUNT 2.97 10^6/uL (3.72-5.28); RED CELL DISTRIBUTION WIDTH 13.3 % (11.5-14.0); WHITE BLOOD COUNT 16.4 10^3/uL (4.0-10.5)
[2020-02-05 10:29] LABS: ANION GAP 5 (5-19); BLOOD UREA NITROGEN 13 mg/dL (7-20); CALCIUM 7.9 mg/dL (8.4-10.2); CARBON DIOXIDE 27 mmol/L (22-30); CHLORIDE 105 mmol/L (98-107); GLUCOSE 161 mg/dL (75-110); POTASSIUM 4.1 mmol/L (3.6-5.0)
[2020-02-05] MEDS: INSULIN GLARGINE,HUM.REC.ANLOG 1,000 UNIT/10 ML VIAL SUBCUT SCH ×2 (11:44→22:27)
[2020-02-05] MEDS: NORMAL SALINE 10 ML SDV (SCHEDULED) IV SCH ×2 (11:51→22:28)
--- NOTE | 2020-02-05 13:04 | PDOC PROGRESS REPORT ---
Subjective Progress Note for:: 02/05/20 Subjective:: The patient reports some improvement in pain over yesterday in spite of a volar and dorsal incision at this point. She reports no other acute events or complications overnight no new signs or symptoms or interval changes. Reason For Visit: SEPSIS,FOOT AND HAND CELLULITIS Physical Exam Vital Signs: Temp Pulse Resp BP Pulse Ox 98.5 F 84 16 128/63 H 96 02/05/20 10:58 02/05/20 10:58 02/05/20 10:58 02/05/20 10:58 02/05/20 10:58 Intake & Output 02/04/20 02/05/20 02/06/20 06:59 06:59 06:59 Intake Total 970 1550 530 Output Total 60 Balance 970 1490 530 Weight 61.3 kg 61.3 kg Physical Exam: Left upper extremity Sensation grossly intact, motor function grossly intact. Range of motion limited due to pain. There is swelling and erythema present and the palm as well as the dorsum of the hand between the wrist joint and the PIP joints diffusely. The patient still has an intrinsic position of the hand, however there is no fusiform swelling or signs of tendon sheath involvement, no proximal erythema progression. Capillary refill is less than 3 seconds. No overt purulent drainage in the dressing today. Right lower extremity, patient has prior surgical scars in the heel and foot that are well-healed. She has little sensation of her foot into the heel, motor function is grossly intact. Capillary refill is less than 2 seconds, distal pulses are 1+. Wound vacs in place with minimal output. Results Laboratory Results: 02/05/20 09:25 02/05/20 09:25 02/05/20 02/05/20 09:25 09:25 WBC 16.4 H RBC 2.97 L Hgb 9.5 L Hct 27.4 L MCV 92 MCH 32.0 MCHC 34.8 RDW 13.3 Plt Count 617 H Sodium 137.4 Potassium 4.1 Chloride 105 Carbon Dioxide 27 Anion Gap 5 BUN 13 Creatinine 0.56 Est GFR ( Amer) > 60 Glucose 161 H Calcium 7.9 L Impressions: Foot X-Ray 01/28/20 17:59 IMPRESSION: Ulcer at the base of the 5th metatarsal without gross plain film evidence of osteomyelitis Charcot foot with collapse of the plantar arch and lateral subluxation of the 2nd through 5th metatarsals, similar compared to previous studies Hand X-Ray 01/28/20 17:59 IMPRESSION: Diffuse soft tissue swelling of the left hand. No underlying fracture or radiopaque foreign body Lower Extremity MRI 01/29/20 00:00 IMPRESSION: 1. Abnormal signal within the first, second and third metatarsal heads, which may represent osteomyelitis in the correct clinical setting. 2. Focal soft tissue ulceration and swelling along the lateral aspect of the midfoot. Upper Extremity MRI 01/29/20 00:00 IMPRESSION: 1. No evidence of acute osteomyelitis of the third digit. 2. Diffuse myositis which may be infectious or reactive. 3. Diffuse soft tissue swelling of the left hand which may represent cellulitis. PICC Line Insertion 02/02/20 07:00 IMPRESSION: SUCCESSFUL PLACEMENT OF A 5 FR DUAL LUMEN 28 CM PICC IN THE RIGHT BASILIC VEIN. Assessment & Plan - Diagnosis (1) Cellulitis of hand, left Is this a current diagnosis for this admission?: Yes (2) Diabetes Qualifiers: Diabetes mellitus type: type 1 Diabetes mellitus complication status: with hyperglycemia Qualified Code(s): E10.65 - Type 1 diabetes mellitus with hyperglycemia Is this a current diagnosis for this admission?: Yes (3) Diabetic infection of right foot Is this a current diagnosis for this admission?: Yes Plan: Change negative pressure wound dressing every 3 to 5 days until seen by Dr. Madison in the wound clinic. (4) Charcot's joint of right foot Is this a current diagnosis for this admission?: Yes (5) Type 2 diabetes mellitus with Charcot's joint of right foot Is this a current diagnosis for this admission?: Yes (6) Abscess of left hand Is this a current diagnosis for this admission?: Yes Plan: The patient's tissues at the time of surgery are unhealthy appearing. Her hand may require multiple debridements prior to discharge. I will evaluate her over the weekend and see if there is any further need for repeat I&D. Would suggest infectious disease consult for targeted antibiotics given her cultures. Repeat cultures pending Trend CRP for measure of improvement Dilute chlorhexidine soaks twice daily, 30 minutes at a time. - Time Time Spent with patient: Less than 15 minutes
[2020-02-05] MEDS: METOCLOPRAMIDE HCL INJ/PF 10 MG/2 ML SDV IV PRN ×2 (16:49→22:26)
--- NOTE | 2020-02-05 17:35 | PDOC PROGRESS REPORT ---
Subjective Progress Note for:: 02/05/20 Subjective:: No adverse events overnight. No new complaints. Vital signs are stable. She had further debridement of the hand yesterday, apparently they went in through the volar aspect and it seemed that the wound communicated all the way through to the dorsal surface. Today she has been eating and drinking without difficulty. No fevers. Reason For Visit: SEPSIS,FOOT AND HAND CELLULITIS Physical Exam Vital Signs: Temp Pulse Resp BP Pulse Ox 98.9 F 87 16 143/66 H 95 02/05/20 15:58 02/05/20 15:58 02/05/20 15:58 02/05/20 15:58 02/05/20 15:58 Intake & Output 02/04/20 02/05/20 02/06/20 06:59 06:59 06:59 Intake Total 970 1550 630 Output Total 60 Balance 970 1490 630 Weight 61.3 kg 61.3 kg General appearance: PRESENT: no acute distress, cooperative Neck exam: ABSENT: JVD Respiratory exam: PRESENT: clear to auscultation naz, unlabored. ABSENT: tachypnea, wheezes Cardiovascular exam: PRESENT: RRR, +S1, +S2. ABSENT: tachycardia GI/Abdominal exam: PRESENT: soft. ABSENT: rebound, rigid, tenderness Extremities exam: PRESENT: other - Wound VAC placed on right Charcot foot with trace erythema surrounding the wound, sterile gauze bandage on left hand covering the dorsal aspect with dark erythema apparent proximal to the PIP joints Neurological exam: PRESENT: alert, awake, oriented to person, oriented to place, oriented to time, oriented to situation Results Laboratory Results: 02/05/20 09:25 02/05/20 09:25 02/05/20 02/05/20 09:25 09:25 WBC 16.4 H RBC 2.97 L Hgb 9.5 L Hct 27.4 L MCV 92 MCH 32.0 MCHC 34.8 RDW 13.3 Plt Count 617 H Sodium 137.4 Potassium 4.1 Chloride 105 Carbon Dioxide 27 Anion Gap 5 BUN 13 Creatinine 0.56 Est GFR ( Amer) > 60 Glucose 161 H Calcium 7.9 L Impressions: Foot X-Ray 01/28/20 17:59 IMPRESSION: Ulcer at the base of the 5th metatarsal without gross plain film evidence of osteomyelitis Charcot foot with collapse of the plantar arch and lateral subluxation of the 2nd through 5th metatarsals, similar compared to previous studies Hand X-Ray 01/28/20 17:59 IMPRESSION: Diffuse soft tissue swelling of the left hand. No underlying fracture or radiopaque foreign body Lower Extremity MRI 01/29/20 00:00 IMPRESSION: 1. Abnormal signal within the first, second and third metatarsal heads, which may represent osteomyelitis in the correct clinical setting. 2. Focal soft tissue ulceration and swelling along the lateral aspect of the midfoot. Upper Extremity MRI 01/29/20 00:00 IMPRESSION: 1. No evidence of acute osteomyelitis of the third digit. 2. Diffuse myositis which may be infectious or reactive. 3. Diffuse soft tissue swelling of the left hand which may represent cellulitis. PICC Line Insertion 02/02/20 07:00 IMPRESSION: SUCCESSFUL PLACEMENT OF A 5 FR DUAL LUMEN 28 CM PICC IN THE RIGHT BASILIC VEIN. Assessment and Plan - Diagnosis (1) Abscess of left hand Is this a current diagnosis for this admission?: Yes Plan: This appears to be hematogenous spread from the foot wound, interestingly enough. She was switched over to Rocephin, and infectious disease weighed in and said that this was probably okay for now, and recommended the addition of metronidazole over the clindamycin that have been started. These changes have been made. Wound care per surgery. (2) Osteomyelitis of right foot Qualifiers: Osteomyelitis type: other acute Qualified Code(s): M86.171 - Other acute osteomyelitis, right ankle and foot Is this a current diagnosis for this admission?: Yes Plan: She has a wound VAC on the foot with antibiotics as noted above. We will give the cultures a few more days to see anything grows out before we make definitive choices on home antibiotics, which she will probably need for about 4 weeks at least. (3) Type 2 diabetes mellitus with Charcot's joint of right foot Is this a current diagnosis for this admission?: Yes Plan: Insulin sliding scale combined with diabetic diet to achieve glucose control - Time Time Spent with patient: 15-24 minutes
[2020-02-05] MEDS: SIMVASTATIN 40 MG TABLET PO SCH (22:26)
[2020-02-05] MEDS: SENNOSIDES/DOCUSATE 8.6-50 MG 1 EACH TABLET PO SCH (22:28)
[2020-02-06] MEDS: METRONIDAZOLE 500 MG/NS RTU 500 MG/100 ML RTUPB IV SCH ×4 (00:55→17:20)
[2020-02-06] MEDS: HEPARIN SOD (PORCINE) 5,000 UNIT/ML 1 ML VIAL SUBCUT SCH ×3 (05:15→21:01)
[2020-02-06] MEDS: NORMAL SALINE 10 ML SDV (AFTER EACH USE) IV PRN (05:17)
[2020-02-06] MEDS: METOCLOPRAMIDE HCL INJ/PF 10 MG/2 ML SDV IV PRN ×3 (05:25→21:13)
[2020-02-06 05:59] LABS: HEMATOCRIT 25.7 % (36.0-47.0); HEMOGLOBIN 8.7 g/dL (12.0-15.5); MEAN CORPUSCULAR HEMOGLOBIN 31.3 pg (27.0-33.4); MEAN CORPUSCULAR VOLUME 92 fl (80-97); PLATELET COUNT 560 10^3/uL (150-450); RED BLOOD COUNT 2.79 10^6/uL (3.72-5.28); WHITE BLOOD COUNT 11.8 10^3/uL (4.0-10.5)
[2020-02-06 06:18] LABS: BLOOD UREA NITROGEN 11 mg/dL (7-20); CALCIUM 7.8 mg/dL (8.4-10.2); GLUCOSE 147 mg/dL (75-110); POTASSIUM 4.1 mmol/L (3.6-5.0)
[2020-02-06 06:24] LABS: ANION GAP 5 (5-19); CARBON DIOXIDE 28 mmol/L (22-30); CHLORIDE 105 mmol/L (98-107)
[2020-02-06] MEDS: INSULIN GLARGINE,HUM.REC.ANLOG 1,000 UNIT/10 ML VIAL SUBCUT SCH ×2 (08:06→21:33)
[2020-02-06] MEDS: INSULIN LISPRO 100 UNIT/ML 3 ML VIAL SUBCUT SCH ×3 (08:06→16:18)
[2020-02-06] MEDS: CEFTRIAXONE 2 GM/D5W RTU 2 GM/50 ML RTUPB IV SCH (09:08)
[2020-02-06] MEDS: LEVOTHYROXINE SODIUM 0.05 MG TABLET PO SCH (09:08)
[2020-02-06] MEDS: NORMAL SALINE 10 ML SDV (SCHEDULED) IV SCH ×2 (09:09→21:01)
--- NOTE | 2020-02-06 15:14 | PDOC PROGRESS REPORT ---
Subjective Progress Note for:: 02/06/20 Subjective:: No adverse events overnight. No new complaints. Vital signs are stable. She is getting wet-to-dry dressings on her left hand, and she said Dr. Cordon told her she would have to have another I&D on Saturday. Today she has been eating and drinking without difficulty. No fevers. Reason For Visit: SEPSIS,FOOT AND HAND CELLULITIS Physical Exam Vital Signs: Temp Pulse Resp BP Pulse Ox 98.0 F 85 20 134/72 H 96 02/06/20 07:47 02/06/20 07:47 02/06/20 07:47 02/06/20 07:47 02/06/20 07:47 Intake & Output 02/05/20 02/06/20 02/07/20 06:59 06:59 06:59 Intake Total 1550 1050 150 Output Total 60 Balance 1490 1050 150 Weight 61.3 kg 61.3 kg General appearance: PRESENT: no acute distress, cooperative Neck exam: ABSENT: JVD Respiratory exam: PRESENT: clear to auscultation naz, unlabored. ABSENT: tachypnea, wheezes Cardiovascular exam: PRESENT: RRR, +S1, +S2. ABSENT: tachycardia GI/Abdominal exam: PRESENT: soft. ABSENT: rebound, rigid, tenderness Extremities exam: PRESENT: other - Wound VAC placed on right Charcot foot with trace erythema surrounding the wound, sterile gauze bandage on left hand covering the dorsal aspect with dark erythema apparent proximal to the PIP joints Neurological exam: PRESENT: alert, awake, oriented to person, oriented to place, oriented to time, oriented to situation Results Laboratory Results: 02/06/20 05:15 02/06/20 05:15 02/06/20 02/06/20 05:15 05:15 WBC 11.8 H RBC 2.79 L Hgb 8.7 L Hct 25.7 L MCV 92 MCH 31.3 MCHC 34.0 RDW 13.0 Plt Count 560 H Sodium 137.6 Potassium 4.1 Chloride 105 Carbon Dioxide 28 Anion Gap 5 BUN 11 Creatinine 0.55 Est GFR ( Amer) > 60 Glucose 147 H Calcium 7.8 L 02/04/20 20:40 Hand - Left Gram Stain - Final 02/04/20 20:40 Hand - Abscess Gram Stain - Final Impressions: Foot X-Ray 01/28/20 17:59 IMPRESSION: Ulcer at the base of the 5th metatarsal without gross plain film evidence of osteomyelitis Charcot foot with collapse of the plantar arch and lateral subluxation of the 2nd through 5th metatarsals, similar compared to previous studies Hand X-Ray 01/28/20 17:59 IMPRESSION: Diffuse soft tissue swelling of the left hand. No underlying fracture or radiopaque foreign body Lower Extremity MRI 01/29/20 00:00 IMPRESSION: 1. Abnormal signal within the first, second and third metatarsal heads, which may represent osteomyelitis in the correct clinical setting. 2. Focal soft tissue ulceration and swelling along the lateral aspect of the midfoot. Upper Extremity MRI 01/29/20 00:00 IMPRESSION: 1. No evidence of acute osteomyelitis of the third digit. 2. Diffuse myositis which may be infectious or reactive. 3. Diffuse soft tissue swelling of the left hand which may represent cellulitis. PICC Line Insertion 02/02/20 07:00 IMPRESSION: SUCCESSFUL PLACEMENT OF A 5 FR DUAL LUMEN 28 CM PICC IN THE RIGHT BASILIC VEIN. Assessment and Plan - Diagnosis (1) Abscess of left hand Is this a current diagnosis for this admission?: Yes Plan: This appears to be hematogenous spread from the foot wound, interestingly enough. She was switched over to Rocephin, and infectious disease weighed in and said that this was probably okay for now, and recommended the addition of metronidazole over the clindamycin that have been started. These changes have been made. Wound care per surgery. She says she is going back to the operating room on Saturday for another incision and debridement of the left hand. (2) Osteomyelitis of right foot Qualifiers: Osteomyelitis type: other acute Qualified Code(s): M86.171 - Other acute osteomyelitis, right ankle and foot Is this a current diagnosis for this admission?: Yes Plan: She has a wound VAC on the foot with antibiotics as noted above. We will give the cultures a few more days to see anything grows out before we make definitive choices on home antibiotics, which she will probably need for about 4 weeks at least. (3) Type 2 diabetes mellitus with Charcot's joint of right foot Is this a current diagnosis for this admission?: Yes Plan: Insulin sliding scale combined with diabetic diet to achieve glucose control - Time Time Spent with patient: 15-24 minutes
[2020-02-06] MEDS: ONDANSETRON HCL INJ/PF 4 MG/2 ML SDV IV PRN (16:15)
[2020-02-06] MEDS: SIMVASTATIN 40 MG TABLET PO SCH (21:01)
[2020-02-06] MEDS: SENNOSIDES/DOCUSATE 8.6-50 MG 1 EACH TABLET PO SCH (21:01)
[2020-02-07] MEDS: METRONIDAZOLE 500 MG/NS RTU 500 MG/100 ML RTUPB IV SCH ×4 (00:04→17:22)
[2020-02-07] MEDS: ONDANSETRON HCL INJ/PF 4 MG/2 ML SDV IV PRN ×3 (02:14→21:36)
[2020-02-07] MEDS: METOCLOPRAMIDE HCL INJ/PF 10 MG/2 ML SDV IV PRN ×2 (05:40→12:25)
[2020-02-07] MEDS: HEPARIN SOD (PORCINE) 5,000 UNIT/ML 1 ML VIAL SUBCUT SCH ×3 (05:47→21:33)
[2020-02-07 06:09] LABS: HEMATOCRIT 28.2 % (36.0-47.0); HEMOGLOBIN 9.7 g/dL (12.0-15.5); MEAN CORPUSCULAR HEMOGLOBIN 31.7 pg (27.0-33.4); MEAN CORPUSCULAR HGB CONC 34.5 g/dL (32.0-36.0); MEAN CORPUSCULAR VOLUME 92 fl (80-97); PLATELET COUNT 658 10^3/uL (150-450); RED BLOOD COUNT 3.07 10^6/uL (3.72-5.28); RED CELL DISTRIBUTION WIDTH 13.6 % (11.5-14.0); WHITE BLOOD COUNT 10.2 10^3/uL (4.0-10.5)
[2020-02-07 06:33] LABS: BLOOD UREA NITROGEN 8 mg/dL (7-20); CALCIUM 8.1 mg/dL (8.4-10.2)
[2020-02-07 06:38] LABS: ANION GAP 5 (5-19); CARBON DIOXIDE 29 mmol/L (22-30); CHLORIDE 105 mmol/L (98-107)
[2020-02-07 06:41] LABS: GLUCOSE 58 mg/dL (75-110)
[2020-02-07] MEDS: INSULIN LISPRO 100 UNIT/ML 3 ML VIAL SUBCUT SCH ×3 (08:15→16:09)
[2020-02-07] MEDS: INSULIN GLARGINE,HUM.REC.ANLOG 1,000 UNIT/10 ML VIAL SUBCUT SCH ×2 (08:16→21:34)
[2020-02-07] MEDS: NORMAL SALINE 10 ML SDV (AFTER EACH USE) IV PRN ×2 (08:17→14:54)
[2020-02-07] MEDS: LEVOTHYROXINE SODIUM 0.05 MG TABLET PO SCH (09:29)
[2020-02-07] MEDS: NORMAL SALINE 10 ML SDV (SCHEDULED) IV SCH ×2 (09:29→21:44)
[2020-02-07] MEDS: PENICILLIN G POTASSIUM 5,000,000 UNIT in DEXTROSE 5%-WATER 100 ML IV SCH ×3 (12:25→21:35)
--- NOTE | 2020-02-07 14:04 | PDOC PROGRESS REPORT ---
Subjective Progress Note for:: 02/07/20 Subjective:: No adverse events overnight. No new complaints. Vital signs been stable. She said that she still a little bit intermittently nauseated but she has been eating. She thinks that it is the antibiotics, but the antibiotics are IV. If the antibiotics were oral I can see them possibly causing some GI upset. She does suffer from diabetic gastroparesis. Orthopedics saw her hand today and was concerned there was some persistent serous drainage and is tentatively planning to take her back to the operating room tomorrow. Reason For Visit: SEPSIS,FOOT AND HAND CELLULITIS Physical Exam Vital Signs: Temp Pulse Resp BP Pulse Ox 98.6 F 84 16 138/72 H 98 02/07/20 11:49 02/07/20 11:49 02/07/20 11:49 02/07/20 11:49 02/07/20 11:49 Intake & Output 02/06/20 02/07/20 02/08/20 06:59 06:59 06:59 Intake Total 1050 890 360 Balance 1050 890 360 Weight 61.3 kg 61.3 kg General appearance: PRESENT: no acute distress, cooperative Neck exam: ABSENT: JVD Respiratory exam: PRESENT: clear to auscultation naz, unlabored. ABSENT: tachypnea, wheezes Cardiovascular exam: PRESENT: RRR, +S1, +S2. ABSENT: tachycardia GI/Abdominal exam: PRESENT: soft. ABSENT: rebound, rigid, tenderness Extremities exam: PRESENT: other - Wound VAC placed on right Charcot foot with no erythema surrounding the wound, sterile gauze bandage on left hand covering the dorsal aspect with dark erythema apparent proximal to the PIP joints Neurological exam: PRESENT: alert, awake, oriented to person, oriented to place, oriented to time, oriented to situation Results Laboratory Results: 02/07/20 06:00 02/07/20 06:00 02/07/20 02/07/20 06:00 06:00 WBC 10.2 RBC 3.07 L Hgb 9.7 L Hct 28.2 L MCV 92 MCH 31.7 MCHC 34.5 RDW 13.6 Plt Count 658 H Sodium 138.8 Potassium 4.0 Chloride 105 Carbon Dioxide 29 Anion Gap 5 BUN 8 Creatinine 0.51 L Est GFR ( Amer) > 60 Glucose 58 L Calcium 8.1 L 02/04/20 20:40 Hand - Abscess Gram Stain - Final 02/04/20 20:40 Hand - Left Gram Stain - Final Impressions: Foot X-Ray 01/28/20 17:59 IMPRESSION: Ulcer at the base of the 5th metatarsal without gross plain film evidence of osteomyelitis Charcot foot with collapse of the plantar arch and lateral subluxation of the 2nd through 5th metatarsals, similar compared to previous studies Hand X-Ray 01/28/20 17:59 IMPRESSION: Diffuse soft tissue swelling of the left hand. No underlying fracture or radiopaque foreign body Lower Extremity MRI 01/29/20 00:00 IMPRESSION: 1. Abnormal signal within the first, second and third metatarsal heads, which may represent osteomyelitis in the correct clinical setting. 2. Focal soft tissue ulceration and swelling along the lateral aspect of the midfoot. Upper Extremity MRI 01/29/20 00:00 IMPRESSION: 1. No evidence of acute osteomyelitis of the third digit. 2. Diffuse myositis which may be infectious or reactive. 3. Diffuse soft tissue swelling of the left hand which may represent cellulitis. PICC Line Insertion 02/02/20 07:00 IMPRESSION: SUCCESSFUL PLACEMENT OF A 5 FR DUAL LUMEN 28 CM PICC IN THE RIGHT BASILIC VEIN. Assessment and Plan - Diagnosis (1) Abscess of left hand Is this a current diagnosis for this admission?: Yes Plan: She has had 2 incision and debridement procedures done. She may need a third tomorrow. She is grown out group A strep and a Staphylococcus lugdunensis from the wound. These were fairly sensitive organisms. She has been on Rocephin. I am going to switch her over to penicillin in the hopes that it would be more active against these organisms and therefore help us achieve better source control. Infectious disease has been consulted, will look for their note when the case is reviewed, hopefully tomorrow. (2) Osteomyelitis of right foot Qualifiers: Osteomyelitis type: other acute Qualified Code(s): M86.171 - Other acute osteomyelitis, right ankle and foot Is this a current diagnosis for this admission?: Yes Plan: She has a wound VAC on the foot with antibiotics as noted above. We currently have switched her over to penicillin, will wait for infectious disease recommendations regarding IV antibiotics, which she will probably need for about 4 weeks at least. (3) Type 2 diabetes mellitus with Charcot's joint of right foot Is this a current diagnosis for this admission?: Yes Plan: Insulin sliding scale combined with diabetic diet to achieve glucose control - Time Time Spent with patient: 15-24 minutes
--- NOTE | 2020-02-07 21:23 | PDOC PROGRESS REPORT ---
Subjective Progress Note for:: 02/07/20 Subjective:: Patient seen and examined this AM. No new event or change in symptoms. Reason For Visit: SEPSIS,FOOT AND HAND CELLULITIS Physical Exam Vital Signs: Temp Pulse Resp BP Pulse Ox 98.5 F 87 16 142/76 H 98 02/07/20 16:11 02/07/20 16:11 02/07/20 16:11 02/07/20 16:11 02/07/20 16:11 Intake & Output 02/06/20 02/07/20 02/08/20 06:59 06:59 06:59 Intake Total 1050 890 800 Balance 1050 890 800 Weight 61.3 kg 61.3 kg Physical Exam: Left upper extremity Sensation grossly intact, motor function grossly intact. Range of motion limited due to pain. There is swelling and erythema present and the palm as well as the dorsum of the hand between the wrist joint and the PIP joints diffusely. The patient still has an intrinsic position of the hand, however there is no fusiform swelling or signs of tendon sheath involvement, no proximal erythema progression. Capillary refill is less than 3 seconds. No overt purulent drainage in the dressing today. Right lower extremity, patient has prior surgical scars in the heel and foot that are well-healed. She has little sensation of her foot into the heel, motor function is grossly intact. Capillary refill is less than 2 seconds, distal pulses are 1+. Wound vacs in place with minimal output. Results Laboratory Results: 02/07/20 06:00 02/07/20 06:00 02/07/20 02/07/20 06:00 06:00 WBC 10.2 RBC 3.07 L Hgb 9.7 L Hct 28.2 L MCV 92 MCH 31.7 MCHC 34.5 RDW 13.6 Plt Count 658 H Sodium 138.8 Potassium 4.0 Chloride 105 Carbon Dioxide 29 Anion Gap 5 BUN 8 Creatinine 0.51 L Est GFR ( Amer) > 60 Glucose 58 L Calcium 8.1 L 02/04/20 20:40 Hand - Abscess Gram Stain - Final 02/04/20 20:40 Hand - Left Gram Stain - Final Impressions: Foot X-Ray 01/28/20 17:59 IMPRESSION: Ulcer at the base of the 5th metatarsal without gross plain film evidence of osteomyelitis Charcot foot with collapse of the plantar arch and lateral subluxation of the 2nd through 5th metatarsals, similar compared to previous studies Hand X-Ray 01/28/20 17:59 IMPRESSION: Diffuse soft tissue swelling of the left hand. No underlying fracture or radiopaque foreign body Lower Extremity MRI 01/29/20 00:00 IMPRESSION: 1. Abnormal signal within the first, second and third metatarsal heads, which may represent osteomyelitis in the correct clinical setting. 2. Focal soft tissue ulceration and swelling along the lateral aspect of the midfoot. Upper Extremity MRI 01/29/20 00:00 IMPRESSION: 1. No evidence of acute osteomyelitis of the third digit. 2. Diffuse myositis which may be infectious or reactive. 3. Diffuse soft tissue swelling of the left hand which may represent cellulitis. PICC Line Insertion 02/02/20 07:00 IMPRESSION: SUCCESSFUL PLACEMENT OF A 5 FR DUAL LUMEN 28 CM PICC IN THE RIGHT BASILIC VEIN. Assessment & Plan - Diagnosis (1) Cellulitis of hand, left Is this a current diagnosis for this admission?: Yes (2) Diabetes Qualifiers: Diabetes mellitus type: type 1 Diabetes mellitus complication status: with hyperglycemia Qualified Code(s): E10.65 - Type 1 diabetes mellitus with hyperglycemia Is this a current diagnosis for this admission?: Yes (3) Diabetic infection of right foot Is this a current diagnosis for this admission?: Yes Plan: continue negative pressure wound therapy for the foot until seen in wound management office Continue antibiotics Change dressing every 3 days (4) Charcot's joint of right foot Is this a current diagnosis for this admission?: Yes (5) Type 2 diabetes mellitus with Charcot's joint of right foot Is this a current diagnosis for this admission?: Yes (6) Abscess of left hand Is this a current diagnosis for this admission?: Yes Plan: Will re-evaluate in the AM and determine if there is need for repeat I&D Continue antibiotics per medicine Encourage continued ROM of the hand with PT/OT - Time Time Spent with patient: Less than 15 minutes
[2020-02-07] MEDS: SENNOSIDES/DOCUSATE 8.6-50 MG 1 EACH TABLET PO SCH (21:37)
[2020-02-07] MEDS: SIMVASTATIN 40 MG TABLET PO SCH (21:37)
[2020-02-08] MEDS: METRONIDAZOLE 500 MG/NS RTU 500 MG/100 ML RTUPB IV SCH ×3 (00:13→14:19)
[2020-02-08] MEDS: PENICILLIN G POTASSIUM 5,000,000 UNIT in DEXTROSE 5%-WATER 100 ML IV SCH ×6 (00:13→21:14)
[2020-02-08] MEDS: ONDANSETRON HCL INJ/PF 4 MG/2 ML SDV IV PRN ×2 (04:47→14:19)
[2020-02-08 05:09] LABS: HEMATOCRIT 25.9 % (36.0-47.0); HEMOGLOBIN 9.2 g/dL (12.0-15.5); MEAN CORPUSCULAR HEMOGLOBIN 32.2 pg (27.0-33.4); MEAN CORPUSCULAR HGB CONC 35.4 g/dL (32.0-36.0); MEAN CORPUSCULAR VOLUME 91 fl (80-97); PLATELET COUNT 552 10^3/uL (150-450); RED BLOOD COUNT 2.85 10^6/uL (3.72-5.28); RED CELL DISTRIBUTION WIDTH 13.4 % (11.5-14.0); WHITE BLOOD COUNT 8.8 10^3/uL (4.0-10.5)
[2020-02-08 05:29] LABS: BLOOD UREA NITROGEN 7 mg/dL (7-20); CALCIUM 7.7 mg/dL (8.4-10.2); POTASSIUM 3.8 mmol/L (3.6-5.0)
[2020-02-08 05:35] LABS: CARBON DIOXIDE 30 mmol/L (22-30); CHLORIDE 104 mmol/L (98-107)
[2020-02-08 05:38] LABS: GLUCOSE 62 mg/dL (75-110)
[2020-02-08 05:48] LABS: ANION GAP 3 (5-19)
[2020-02-08] MEDS: HEPARIN SOD (PORCINE) 5,000 UNIT/ML 1 ML VIAL SUBCUT SCH ×3 (05:52→21:13)
[2020-02-08] MEDS: INSULIN GLARGINE,HUM.REC.ANLOG 1,000 UNIT/10 ML VIAL SUBCUT SCH ×2 (08:10→21:15)
[2020-02-08] MEDS: INSULIN LISPRO 100 UNIT/ML 3 ML VIAL SUBCUT SCH ×3 (08:10→16:33)
[2020-02-08] MEDS: METOCLOPRAMIDE HCL INJ/PF 10 MG/2 ML SDV IV PRN (08:23)
[2020-02-08] MEDS: NORMAL SALINE 10 ML SDV (SCHEDULED) IV SCH ×2 (09:20→21:14)
[2020-02-08] MEDS: NORMAL SALINE 10 ML SDV (AFTER EACH USE) IV PRN ×2 (09:20→17:10)
[2020-02-08] MEDS: LEVOTHYROXINE SODIUM 0.05 MG TABLET PO SCH (09:20)
--- NOTE | 2020-02-08 11:41 | PDOC PROGRESS REPORT ---
Subjective Progress Note for:: 02/08/20 Subjective:: The patient is doing well today. Reports some improvement overnight. She has been performing personal exercises for her hand but reports not being seen by PT for her hand yesterday. Denies any recent illness or fever. Reason For Visit: SEPSIS,FOOT AND HAND CELLULITIS Physical Exam Vital Signs: Temp Pulse Resp BP Pulse Ox 98.5 F 83 16 132/73 H 97 02/08/20 08:19 02/08/20 08:19 02/08/20 08:19 02/08/20 08:19 02/08/20 08:19 Intake & Output 02/07/20 02/08/20 02/09/20 06:59 06:59 06:59 Intake Total 890 1000 Output Total 400 225 Balance 890 600 -225 Weight 61.3 kg 61.3 kg Physical Exam: AOx3, NAD Left upper extremity Sensation grossly intact, motor function grossly intact. Range of motion limit ed due to pain. There is swelling and erythema present and the palm as well as the dorsum of the hand between the wrist joint and the PIP joints diffusely, this is improved today over prior exams. no fusiform swelling or signs of tendon sheath involvement, no proximal erythema progression. Capillary refill is less than 3 seconds. No overt purulent drainage in the dressing today. Right lower extremity, patient has prior surgical scars in the heel and foot that are well-healed. She has little sensation of her foot into the heel, motor function is grossly intact. Capillary refill is less than 2 seconds, distal pulses are 1+. Wound vacs in place with minimal output. Results Laboratory Results: 02/08/20 04:40 02/08/20 04:40 02/08/20 02/08/20 04:40 04:40 WBC 8.8 RBC 2.85 L Hgb 9.2 L Hct 25.9 L MCV 91 MCH 32.2 MCHC 35.4 RDW 13.4 Plt Count 552 H Sodium 137.1 Potassium 3.8 Chloride 104 Carbon Dioxide 30 Anion Gap 3 L BUN 7 Creatinine 0.55 Est GFR ( Amer) > 60 Glucose 62 L Calcium 7.7 L 02/04/20 20:40 Hand - Left Gram Stain - Final 02/04/20 20:40 Hand - Left Wound Culture - Final NO AEROBIC OR ANAEROBIC ORGANISMS RECOVERED 02/04/20 20:40 Hand - Abscess Gram Stain - Final Impressions: Foot X-Ray 01/28/20 17:59 IMPRESSION: Ulcer at the base of the 5th metatarsal without gross plain film evidence of osteomyelitis Charcot foot with collapse of the plantar arch and lateral subluxation of the 2nd through 5th metatarsals, similar compared to previous studies Hand X-Ray 01/28/20 17:59 IMPRESSION: Diffuse soft tissue swelling of the left hand. No underlying fracture or radiopaque foreign body Lower Extremity MRI 01/29/20 00:00 IMPRESSION: 1. Abnormal signal within the first, second and third metatarsal heads, which may represent osteomyelitis in the correct clinical setting. 2. Focal soft tissue ulceration and swelling along the lateral aspect of the midfoot. Upper Extremity MRI 01/29/20 00:00 IMPRESSION: 1. No evidence of acute osteomyelitis of the third digit. 2. Diffuse myositis which may be infectious or reactive. 3. Diffuse soft tissue swelling of the left hand which may represent cellulitis. PICC Line Insertion 02/02/20 07:00 IMPRESSION: SUCCESSFUL PLACEMENT OF A 5 FR DUAL LUMEN 28 CM PICC IN THE RIGHT B ASILIC VEIN. Assessment & Plan - Diagnosis (1) Cellulitis of hand, left Is this a current diagnosis for this admission?: Yes (2) Diabetes Qualifiers: Diabetes mellitus type: type 1 Diabetes mellitus complication status: with hyperglycemia Qualified Code(s): E10.65 - Type 1 diabetes mellitus with hyperglycemia Is this a current diagnosis for this admission?: Yes (3) Diabetic infection of right foot Is this a current diagnosis for this admission?: Yes Plan: - Continue NWB RLE, continue wound vac until seen and examined by Dr. Madison in wound clinic. (4) Charcot's joint of right foot Is this a current diagnosis for this admission?: Yes (5) Type 2 diabetes mellitus with Charcot's joint of right foot Is this a current diagnosis for this admission?: Yes (6) Abscess of left hand Is this a current diagnosis for this admission?: Yes Plan: - Patient does seem to be improving today, can potentially be discharged today or tomorrow - She will need to change dressings daily - IV antibiotics until I discontinue, per ID and medicine recs - Follow in my office in 10 days - Time Time Spent with patient: Less than 15 minutes
--- NOTE | 2020-02-08 15:50 | Progress Note ---
Provider Note Provider Note: [facility] Telephone Advice Follow Up Chart reviewed. Patient is a 64-year-old woman with DM 1, PVD, CAD, who was admitted due to worsening right foot and left hand wounds. Patient has had a chronic ulcer in the right foot for > 1y. It recently started to drain more, she presented erythema and also had fever. She was evaluated in the ED on 01/27 and found septic. She was started on vancomycin and cefepime. She had an X ray of the left hand and right foot, no evidence of osteomyelitis. Patient was evaluated by orthopedics on 01/28 who recommended MRI of both extremities. MRI of the left hand demonstrated diffuse myositis and ST swelling. Right foot MRI demonstrated abnormal signal on - MTs suspicious for osteomyelitis. She is s/p I&D on 01/30. Cultures growing GBS and Staphylococcus lugdunensis. Blood cultures remain negative. There were previous right foot cultures with Proteus, MSSA and GBS in 08/2019. Patient was on ceftriaxone, then penicillin G. She was taken to the OR for further debridement of the hand wound. There was pus, but cultures were negative. Per notes, wounds look better. Allergies: lisinopril Allergy (Verified 05/13/19 09:03) Opioids - Morphine Analogues Adverse Reaction (Verified 01/28/20 16:15) Vital Signs: Temp Pulse Resp BP Pulse Ox 98.5 F 83 16 132/73 H 97 02/08/20 08:19 02/08/20 08:19 02/08/20 08:19 02/08/20 08:19 02/08/20 08:19 Intake & Output 02/07/20 02/08/20 02/09/20 06:59 06:59 06:59 Intake Total 890 1000 100 Output Total 400 225 Balance 890 600 -125 Weight 61.3 kg 61.3 kg Weight/Height Weight 61.3 kg Height 5 ft 2 in Laboratories: 02/08/20 04:40 02/08/20 04:40 MCV 91 fl (80-97) 02/08/20 04:40 MCH 32.2 pg (27.0-33.4) 02/08/20 04:40 MCHC 35.4 g/dL (32.0-36.0) 02/08/20 04:40 RDW 13.4 % (11.5-14.0) 02/08/20 04:40 Seg Neutrophils % 78.8 % (42-78) H 02/03/20 04:14 Chloride 104 mmol/L (98-107) 02/08/20 04:40 Carbon Dioxide 30 mmol/L (22-30) 02/08/20 04:40 Anion Gap 3 (5-19) L 02/08/20 04:40 Est GFR ( Amer) > 60 (>60) 02/08/20 04:40 Glucose 62 mg/dL (75-110) L 02/08/20 04:40 Lactic Acid 1.3 mmol/L (0.7-2.1) 01/28/20 18:40 Calcium 7.7 mg/dL (8.4-10.2) L 02/08/20 04:40 Magnesium 2.0 mg/dL (1.6-2.3) 02/01/20 05:24 Total Bilirubin 0.4 mg/dL (0.2-1.3) 01/28/20 18:40 AST 20 U/L (14-36) 01/28/20 18:40 Alkaline Phosphatase 180 U/L (38-126) H 01/28/20 18:40 C-Reactive Protein 63.8 mg/L (<10.0) H 02/04/20 09:35 Total Protein 6.9 g/dL (6.3-8.2) 01/28/20 18:40 Albumin 3.4 g/dL (3.5-5.0) L 01/28/20 18:40 02/04/20 20:40 Hand - Abscess Gram Stain - Final 02/04/20 20:40 Hand - Abscess Wound Culture - Final NO AEROBIC OR ANAEROBIC ORGANISMS RECOVERED 02/04/20 20:40 Hand - Left Gram Stain - Final 02/04/20 20:40 Hand - Left Wound Culture - Final NO AEROBIC OR ANAEROBIC ORGANISMS RECOVERED Hand culture x 3 01/30: GBS Foot culture x 2 01/30: GBS and Staphylococcus lugdunensis Radiology: Foot X-Ray 01/28/20 17:59 IMPRESSION: Ulcer at the base of the 5th metatarsal without gross plain film evidence of osteomyelitis Charcot foot with collapse of the plantar arch and lateral subluxation of the 2nd through 5th metatarsals, similar compared to previous studies Hand X-Ray 01/28/20 17:59 IMPRESSION: Diffuse soft tissue swelling of the left hand. No underlying fracture or radiopaque foreign body Lower Extremity MRI 01/29/20 00:00 IMPRESSION: 1. Abnormal signal within the first, second and third metatarsal heads, which may represent osteomyelitis in the correct clinical setting. 2. Focal soft tissue ulceration and swelling along the lateral aspect of the midfoot. Upper Extremity MRI 01/29/20 00:00 IMPRESSION: 1. No evidence of acute osteomyelitis of the third digit. 2. Diffuse myositis which may be infectious or reactive. 3. Diffuse soft tissue swelling of the left hand which may represent cellulitis. Assessment and Recommendations: Patient with multiple comorbidities including PVD and DM1 presented with upper and lower extremities abscesses. Left hand had an abscess s/p I&D with GBS. Right foot with infected ulcer extending to deep tissues. Culture also positive for GBS and Staphylococcus lugdunensis. It is odd that patient had 2 different sites infected with the same organisms. Even though her blood cultures were negative, this is behaving as hematogenous dissemination of infection. She did receive doxycycline prior to admission, that might have compromised the yield of the blood cultures. Considering that MRI was concerning for right foot osteomyelitis but no bone involvement per surgical note (covered by extensive fascia), will recommend treatment for a minimum of 3 weeks now that source control has been achieved. Penicillin G 24 million units daily continuous infusion is adequate. Ceftriaxone 2g IV daily is a reasonable option. Cefazolin 2g IV every 8 hr is another option. No anaerobes isolated, no need to continue metronidazole. EOT 02/25/2020. Please call if questions. Erica Wells MD [facility] [phone]
--- NOTE | 2020-02-08 16:56 | PDOC PROGRESS REPORT ---
Subjective Progress Note for:: 02/08/20 Subjective:: No adverse events overnight. No new complaints. Vital signs been stable. She said the surgeon saw her this morning and said he told her he did not think she would have to go to the OR today. She still having a little bit of clear drainage but it is not much. Reason For Visit: SEPSIS,FOOT AND HAND CELLULITIS Physical Exam Vital Signs: Temp Pulse Resp BP Pulse Ox 98.5 F 83 16 132/73 H 97 02/08/20 08:19 02/08/20 08:19 02/08/20 08:19 02/08/20 08:19 02/08/20 08:19 Intake & Output 02/07/20 02/08/20 02/09/20 06:59 06:59 06:59 Intake Total 890 1000 200 Output Total 400 225 Balance 890 600 -25 Weight 61.3 kg 61.3 kg General appearance: PRESENT: no acute distress, cooperative Neck exam: ABSENT: JVD Respiratory exam: PRESENT: clear to auscultation naz, unlabored. ABSENT: tachypnea, wheezes Cardiovascular exam: PRESENT: RRR, +S1, +S2. ABSENT: tachycardia GI/Abdominal exam: PRESENT: soft. ABSENT: rebound, rigid, tenderness Extremities exam: PRESENT: other - Wound VAC placed on right Charcot foot with no erythema surrounding the wound, sterile gauze bandage on left hand covering the dorsal aspect with dark erythema apparent proximal to the PIP joints Neurological exam: PRESENT: alert, awake, oriented to person, oriented to place, oriented to time, oriented to situation Results Laboratory Results: 02/08/20 04:40 02/08/20 04:40 02/08/20 02/08/20 04:40 04:40 WBC 8.8 RBC 2.85 L Hgb 9.2 L Hct 25.9 L MCV 91 MCH 32.2 MCHC 35.4 RDW 13.4 Plt Count 552 H Sodium 137.1 Potassium 3.8 Chloride 104 Carbon Dioxide 30 Anion Gap 3 L BUN 7 Creatinine 0.55 Est GFR ( Amer) > 60 Glucose 62 L Calcium 7.7 L 02/04/20 20:40 Hand - Abscess Gram Stain - Final 02/04/20 20:40 Hand - Abscess Wound Culture - Final NO AEROBIC OR ANAEROBIC ORGANISMS RECOVERED 02/04/20 20:40 Hand - Left Gram Stain - Final 02/04/20 20:40 Hand - Left Wound Culture - Final NO AEROBIC OR ANAEROBIC ORGANISMS RECOVERED Impressions: Foot X-Ray 01/28/20 17:59 IMPRESSION: Ulcer at the base of the 5th metatarsal without gross plain film evidence of osteomyelitis Charcot foot with collapse of the plantar arch and lateral subluxation of the 2nd through 5th metatarsals, similar compared to previous studies Hand X-Ray 01/28/20 17:59 IMPRESSION: Diffuse soft tissue swelling of the left hand. No underlying fracture or radiopaque foreign body Lower Extremity MRI 01/29/20 00:00 IMPRESSION: 1. Abnormal signal within the first, second and third metatarsal heads, which may represent osteomyelitis in the correct clinical setting. 2. Focal soft tissue ulceration and swelling along the lateral aspect of the midfoot. Upper Extremity MRI 01/29/20 00:00 IMPRESSION: 1. No evidence of acute osteomyelitis of the third digit. 2. Diffuse myositis which may be infectious or reactive. 3. Diffuse soft tissue swelling of the left hand which may represent cellulitis. PICC Line Insertion 02/02/20 07:00 IMPRESSION: SUCCESSFUL PLACEMENT OF A 5 FR DUAL LUMEN 28 CM PICC IN THE RIGHT BASILIC VEIN. Assessment and Plan - Diagnosis (1) Abscess of left hand Is this a current diagnosis for this admission?: Yes Plan: She has had 2 incision and debridement procedures done. Hopefully she will not need a third. She is grown out group A strep and a Staphylococcus lugdunensis. She was switched to penicillin yesterday. Infectious disease has said that she could do a 24,000,000 units a day continuous infusion for 3 weeks. Orthopedics is going to reassess the hand tomorrow, and if they think she will not need another debridement at that time, she can probably be discharged home once the antibiotics are arranged. (2) Osteomyelitis of right foot Qualifiers: Osteomyelitis type: other acute Qualified Code(s): M86.171 - Other acute osteomyelitis, right ankle and foot Is this a current diagnosis for this admission?: Yes Plan: She has a wound VAC on the foot with antibiotics as noted above. We currently have switched her over to penicillin, she will also need the wound VAC at home. (3) Type 2 diabetes mellitus with Charcot's joint of right foot Is this a current diagnosis for this admission?: Yes Plan: Insulin sliding scale combined with diabetic diet to achieve glucose control - Time Time Spent with patient: 15-24 minutes
[2020-02-08] MEDS: ACETAMINOPHEN 325 MG TABLET PO PRN (18:22)
[2020-02-08] MEDS: SIMVASTATIN 40 MG TABLET PO SCH (21:14)
[2020-02-08] MEDS: SENNOSIDES/DOCUSATE 8.6-50 MG 1 EACH TABLET PO SCH (21:14)
[2020-02-09] MEDS: PENICILLIN G POTASSIUM 5,000,000 UNIT in DEXTROSE 5%-WATER 100 ML IV SCH ×7 (00:17→23:58)
[2020-02-09] MEDS: HEPARIN SOD (PORCINE) 5,000 UNIT/ML 1 ML VIAL SUBCUT SCH ×3 (05:27→21:02)
[2020-02-09] MEDS: LEVOTHYROXINE SODIUM 0.05 MG TABLET PO SCH (05:27)
[2020-02-09 06:25] LABS: HEMATOCRIT 32.1 % (36.0-47.0); HEMOGLOBIN 11.1 g/dL (12.0-15.5); MEAN CORPUSCULAR HEMOGLOBIN 31.8 pg (27.0-33.4); MEAN CORPUSCULAR HGB CONC 34.5 g/dL (32.0-36.0); MEAN CORPUSCULAR VOLUME 92 fl (80-97); PLATELET COUNT 663 10^3/uL (150-450); RED BLOOD COUNT 3.49 10^6/uL (3.72-5.28); RED CELL DISTRIBUTION WIDTH 13.5 % (11.5-14.0); WHITE BLOOD COUNT 10.7 10^3/uL (4.0-10.5)
[2020-02-09 06:45] LABS: ANION GAP 6 (5-19); BLOOD UREA NITROGEN 6 mg/dL (7-20); CALCIUM 8.1 mg/dL (8.4-10.2); CARBON DIOXIDE 30 mmol/L (22-30); CHLORIDE 99 mmol/L (98-107); GLUCOSE 157 mg/dL (75-110); POTASSIUM 4.1 mmol/L (3.6-5.0)
[2020-02-09] MEDS: INSULIN LISPRO 100 UNIT/ML 3 ML VIAL SUBCUT SCH ×3 (08:00→17:52)
[2020-02-09] MEDS: INSULIN GLARGINE,HUM.REC.ANLOG 1,000 UNIT/10 ML VIAL SUBCUT SCH (08:04)
[2020-02-09] MEDS: NORMAL SALINE 10 ML SDV (SCHEDULED) IV SCH ×2 (09:37→21:02)
[2020-02-09] MEDS: NORMAL SALINE 10 ML SDV (AFTER EACH USE) IV PRN ×2 (09:38→12:52)
--- NOTE | 2020-02-09 10:03 | PDOC PROGRESS REPORT ---
Subjective Progress Note for:: 02/09/20 Subjective:: No new symptoms. Reports her nausea is much improved after switch of antibiotics. Reason For Visit: SEPSIS,FOOT AND HAND CELLULITIS Physical Exam Vital Signs: Temp Pulse Resp BP Pulse Ox 98.8 F 88 18 118/69 93 02/08/20 23:55 02/08/20 23:55 02/08/20 23:55 02/08/20 23:55 02/08/20 23:55 Intake & Output 02/08/20 02/09/20 02/10/20 06:59 06:59 06:59 Intake Total 1000 1626 Output Total 400 575 Balance 600 1051 Weight 61.3 kg 64.8 kg Physical Exam: AOx3, NAD Left upper extremity Sensation grossly intact, motor function grossly intact. Range of motion limited due to pain. There is swelling and erythema present and the palm as well as the dorsum of the hand between the wrist joint and the PIP joints diffusely, this is improved today over prior exams. no fusiform swelling or signs of tendon sheath involvement, no proximal erythema progression. Capillary refill is less than 3 seconds. No overt purulent drainage in the dressing today. Right lower extremity, patient has prior surgical scars in the heel and foot that are well-healed. She has little sensation of her foot into the heel, motor function is grossly intact. Capillary refill is less than 2 seconds, distal pulses are 1+. Wound vacs in place with minimal output. Results Laboratory Results: 02/09/20 05:30 02/09/20 05:30 02/09/20 02/09/20 05:30 05:30 WBC 10.7 H RBC 3.49 L Hgb 11.1 L Hct 32.1 L MCV 92 MCH 31.8 MCHC 34.5 RDW 13.5 Plt Count 663 H Sodium 135.1 L Potassium 4.1 Chloride 99 Carbon Dioxide 30 Anion Gap 6 BUN 6 L Creatinine 0.57 Est GFR ( Amer) > 60 Glucose 157 H Calcium 8.1 L 02/04/20 20:40 Hand - Abscess Gram Stain - Final 02/04/20 20:40 Hand - Abscess Wound Culture - Final NO AEROBIC OR ANAEROBIC ORGANISMS RECOVERED 02/04/20 20:40 Hand - Left Gram Stain - Final 02/04/20 20:40 Hand - Left Wound Culture - Final NO AEROBIC OR ANAEROBIC ORGANISMS RECOVERED Impressions: Foot X-Ray 01/28/20 17:59 IMPRESSION: Ulcer at the base of the 5th metatarsal without gross plain film evidence of osteomyelitis Charcot foot with collapse of the plantar arch and lateral subluxation of the 2nd through 5th metatarsals, similar compared to previous studies Hand X-Ray 01/28/20 17:59 IMPRESSION: Diffuse soft tissue swelling of the left hand. No underlying fracture or radiopaque foreign body Lower Extremity MRI 01/29/20 00:00 IMPRESSION: 1. Abnormal signal within the first, second and third metatarsal heads, which may represent osteomyelitis in the correct clinical setting. 2. Focal soft tissue ulceration and swelling along the lateral aspect of the midfoot. Upper Extremity MRI 01/29/20 00:00 IMPRESSION: 1. No evidence of acute osteomyelitis of the third digit. 2. Diffuse myositis which may be infectious or reactive. 3. Diffuse soft tissue swelling of the left hand which may represent cellulitis. PICC Line Insertion 02/02/20 07:00 IMPRESSION: SUCCESSFUL PLACEMENT OF A 5 FR DUAL LUMEN 28 CM PICC IN THE RIGHT BASILIC VEIN. Assessment & Plan - Diagnosis (1) Cellulitis of hand, left Is this a current diagnosis for this admission?: Yes (2) Diabetes Qualifiers: Diabetes mellitus type: type 1 Diabetes mellitus complication status: with hyperglycemia Qualified Code(s): E10.65 - Type 1 diabetes mellitus with hyperglycemia Is this a current diagnosis for this admission?: Yes (3) Diabetic infection of right foot Is this a current diagnosis for this admission?: Yes Plan: - Follow with Dr. Madison in the wound clinic - LEave Wound vac in place until that time, change every three days (4) Charcot's joint of right foot Is this a current diagnosis for this admission?: Yes (5) Type 2 diabetes mellitus with Charcot's joint of right foot Is this a current diagnosis for this admission?: Yes (6) Abscess of left hand Is this a current diagnosis for this admission?: Yes Plan: - Hand appears to be slowly improving. Due to extent of myositis and infection, she may continue to have drainage for another week or more. - Can go home on IV ABX - Recommend home wound care, home OT for hand and soft tissue mobilization - ID provided final recs, patient tolerating current medications well - Will need close follow up, within 7 days in my office - I have discussed the potential for urgent care in the interval. She can follow in my office or the ER with any acute changes or worsening symptoms. - Time Time Spent with patient: Less than 15 minutes
--- NOTE | 2020-02-09 16:50 | PDOC PROGRESS REPORT ---
Subjective Progress Note for:: 02/09/20 Subjective:: The patient is a 64-year-old female with a past medical history of insulin- dependent diabetes, hypothyroidism, dyslipidemia, PVD, MS, and forgot deformity to the right foot with chronic ulceration who was admitted 01/28/2020 with Left hand and right foot cellulitis. Patient was seen on afternoon rounds. She was found sitting up in bed, comfortably, on room air. She states that she is feeling well and is hopeful to discharge home as soon as antibiotic arrangements can be made. She states that she has experience with an outpatient infusion clinic before but has never done home infusion; she is somewhat nervous. Otherwise, she has no new questions or concerns at this time. She denies fever, chills, chest pain, palpitations, dyspnea, orthopnea, abdominal pain, nausea vomiting diarrhea. No concerns per nursing. Reason For Visit: SEPSIS,FOOT AND HAND CELLULITIS Physical Exam Vital Signs: Temp Pulse Resp BP Pulse Ox 98.7 F 88 18 153/76 H 93 02/09/20 15:05 02/09/20 15:05 02/09/20 15:05 02/09/20 15:05 02/09/20 15:05 Intake & Output 02/08/20 02/09/20 02/10/20 06:59 06:59 06:59 Intake Total 1000 1626 240 Output Total 400 575 2 Balance 600 1051 238 Weight 61.3 kg 64.8 kg General appearance: PRESENT: no acute distress, cooperative, well-developed, well-nourished Head exam: PRESENT: atraumatic, normocephalic Eye exam: PRESENT: conjunctiva pink, EOMI, PERRLA. ABSENT: scleral icterus Mouth exam: PRESENT: moist, tongue midline Respiratory exam: PRESENT: clear to auscultation naz, symmetrical, unlabored. ABSENT: rales, rhonchi, wheezes Cardiovascular exam: PRESENT: RRR, +S1, +S2. ABSENT: diastolic murmur, rubs, systolic murmur Pulses: PRESENT: normal dorsalis pedis pul Vascular exam: PRESENT: normal capillary refill GI/Abdominal exam: PRESENT: normal bowel sounds, soft. ABSENT: distended, guarding, mass, organolmegaly, rebound, tenderness Rectal exam: PRESENT: deferred Extremities exam: PRESENT: other - Wound VAC placed on right Charcot foot with no erythema surrounding the wound, sterile gauze bandage on left hand. Slight erythema noted to the posterior aspect of her third finger extending to the PIP joint.. ABSENT: pedal edema Neurological exam: PRESENT: alert, awake, oriented to person, oriented to place, oriented to time, oriented to situation, CN II-XII grossly intact. ABSENT: motor sensory deficit Psychiatric exam: PRESENT: appropriate affect, normal mood. ABSENT: homicidal ideation, suicidal ideation Skin exam: PRESENT: dry, intact, warm. ABSENT: cyanosis, rash Results Laboratory Results: 02/09/20 05:30 02/09/20 05:30 02/09/20 02/09/20 05:30 05:30 WBC 10.7 H RBC 3.49 L Hgb 11.1 L Hct 32.1 L MCV 92 MCH 31.8 MCHC 34.5 RDW 13.5 Plt Count 663 H Sodium 135.1 L Potassium 4.1 Chloride 99 Carbon Dioxide 30 Anion Gap 6 BUN 6 L Creatinine 0.57 Est GFR ( Amer) > 60 Glucose 157 H Calcium 8.1 L Impressions: Foot X-Ray 01/28/20 17:59 IMPRESSION: Ulcer at the base of the 5th metatarsal without gross plain film evidence of osteomyelitis Charcot foot with collapse of the plantar arch and lateral subluxation of the 2nd through 5th metatarsals, similar compared to previous studies Hand X-Ray 01/28/20 17:59 IMPRESSION: Diffuse soft tissue swelling of the left hand. No underlying fracture or radiopaque foreign body Lower Extremity MRI 01/29/20 00:00 IMPRESSION: 1. Abnormal signal within the first, second and third metatarsal heads, which may represent osteomyelitis in the correct clinical setting. 2. Focal soft tissue ulceration and swelling along the lateral aspect of the midfoot. Upper Extremity MRI 01/29/20 00:00 IMPRESSION: 1. No evidence of acute osteomyelitis of the third digit. 2. Diffuse myositis which may be infectious or reactive. 3. Diffuse soft tissue swelling of the left hand which may represent cellulitis. PICC Line Insertion 02/02/20 07:00 IMPRESSION: SUCCESSFUL PLACEMENT OF A 5 FR DUAL LUMEN 28 CM PICC IN THE RIGHT BASILIC VEIN. Assessment and Plan - Diagnosis (1) Abscess of left hand Is this a current diagnosis for this admission?: Yes Plan: s/p surgical I&D by Dr. Cordon She has had 2 incision and debridement procedures done. Wound culture reveals group B strep and staph lugdunensis Blood cultures negative. Infectious disease was consulted: Recommended penicillin G continuous infusion or ceftriaxone. Patient has had clinical improvement and tolerance of antibiotic once transition to penicillin G. EOT 02/25/2020 Discharge planning is consulted to arrange for home infusion therapy. She is medically stable for discharge once antibiotic arrangements have been made. She should follow-up with Dr. Cordon in 1 week. (2) Diabetes Qualifiers: Diabetes mellitus type: type 1 Diabetes mellitus complication status: with hyperglycemia Qualified Code(s): E10.65 - Type 1 diabetes mellitus with hyperglycemia Is this a current diagnosis for this admission?: Yes Plan: A1c 10.5% Patient is placed on a consistent carb diet. Continue Lantus 12 units nightly, 6 units every morning. Accu-Cheks before meals and at bedtime with Humalog for sliding scale coverage. Hypoglycemia protocol in place. Registered dietitian religious educator consulted. (3) Osteomyelitis of right foot Qualifiers: Osteomyelitis type: other acute Qualified Code(s): M86.171 - Other acute osteomyelitis, right ankle and foot Is this a current diagnosis for this admission?: Yes Plan: She has a wound VAC on the foot with antibiotics as noted above. Wound care per Dr. Cordon. (4) Type 2 diabetes mellitus with Charcot's joint of right foot Is this a current diagnosis for this admission?: Yes Plan: As above. - Time Time Spent with patient: 15-24 minutes Medications reviewed and adjusted accordingly: Yes Anticipated discharge: Home with Homehealth Within: Other - Once at home infusion therapies have been arranged.
[2020-02-09] MEDS: SIMVASTATIN 40 MG TABLET PO SCH (21:01)
[2020-02-09] MEDS: SENNOSIDES/DOCUSATE 8.6-50 MG 1 EACH TABLET PO SCH (21:01)
[2020-02-09] MEDS ORDERED: INSULIN GLARGINE,HUM.REC.ANLOG 1,000 UNIT/10 ML VIAL SUBCUT SCH (22:00)
[2020-02-10] MEDS: PENICILLIN G POTASSIUM 5,000,000 UNIT in DEXTROSE 5%-WATER 100 ML IV SCH ×3 (03:07→11:54)
[2020-02-10] MEDS: ACETAMINOPHEN 325 MG TABLET PO PRN ×2 (03:07→13:36)
[2020-02-10] MEDS: HEPARIN SOD (PORCINE) 5,000 UNIT/ML 1 ML VIAL SUBCUT SCH ×2 (05:15→13:33)
[2020-02-10] MEDS: LEVOTHYROXINE SODIUM 0.05 MG TABLET PO SCH (05:16)
[2020-02-10 06:05] LABS: HEMATOCRIT 28.5 % (36.0-47.0); HEMOGLOBIN 9.9 g/dL (12.0-15.5); MEAN CORPUSCULAR HEMOGLOBIN 31.9 pg (27.0-33.4); MEAN CORPUSCULAR HGB CONC 34.6 g/dL (32.0-36.0); MEAN CORPUSCULAR VOLUME 92 fl (80-97); PLATELET COUNT 529 10^3/uL (150-450); RED BLOOD COUNT 3.09 10^6/uL (3.72-5.28); RED CELL DISTRIBUTION WIDTH 13.4 % (11.5-14.0); WHITE BLOOD COUNT 9.2 10^3/uL (4.0-10.5)
[2020-02-10 06:10] LABS: BLOOD UREA NITROGEN 8 mg/dL (7-20); CALCIUM 7.9 mg/dL (8.4-10.2); CARBON DIOXIDE 32 mmol/L (22-30); CHLORIDE 99 mmol/L (98-107); GLUCOSE 285 mg/dL (75-110); POTASSIUM 4.8 mmol/L (3.6-5.0)
[2020-02-10 06:20] LABS: ANION GAP 1 (5-19)
[2020-02-10] MEDS: INSULIN GLARGINE,HUM.REC.ANLOG 1,000 UNIT/10 ML VIAL SUBCUT SCH (08:15)
[2020-02-10] MEDS: INSULIN LISPRO 100 UNIT/ML 3 ML VIAL SUBCUT SCH ×2 (08:22→11:53)
[2020-02-10] MEDS: NORMAL SALINE 10 ML SDV (SCHEDULED) IV SCH (10:43)
--- NOTE | 2020-02-10 12:24 | PDOC DISCHARGE SUMMARY ---
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 Is this a current diagnosis for this admission?: Yes - Additional Information Resuscitation Status: Full Code Discharge Diet: Cardiac, Diabetic Discharge Activity: Activity As Tolerated, Balance Activity w/Rest, Slowly Increase Activity Referrals: JELLY CORDON JR, DO [ACTIVE PROVISIONAL STAFF] - 02/16/20 9:25 am Home Medications: Insulin Glargine,Hum.rec.anlog [Lantus Insulin 100 Unit/mL Insulin Pen] 14 units SUBCUT QPM 10/16/18 Insulin Lispro [Humalog] 0 units SUBCUT .SLIDING SCALE 10/16/18 Levothyroxine Sodium [Synthroid 0.05 mg Tablet] 50 mcg PO DAILY 10/16/18 Sennosides [Senna] 1 tab PO QHS 10/16/18 Simvastatin [Zocor 40 mg Tablet] 40 mg PO QHS 01/28/20 Acetaminophen [Tylenol 325 mg Tablet] 650 mg PO Q4HP PRN tablet 02/10/20 Penicillin G Potassium [Pfizerpen Inj 5 Million Unit Vial] 5,000,000 unit IV Q4A vial 02/10/20 History of Present Illiness History of Present Illness: H&P per Dr. Estrada: MAGNUS LEONARDO is a 64 year old female with a past medical history of insulin-dependent diabetes, hypothyroidism, dyslipidemia, p eripheral vascular disease with angioplasty to the right leg years ago and Charcot deformity of the right foot with chronic ulcer. Presents by referral from wound care clinic with 1 week of fever, increased drainage to the chronic right foot wound and erythema and swelling of the dorsal aspect of the left hand. In the emergency department she is found to have leukocytosis, fever and the above complaints. She started on empiric antibiotics and referred to the hospitalist for admission. Patient was started on doxycycline for hand cellulitis 48 hours prior without improvement in either. Hospital Course Hospital Course: (1) Abscess of left hand s/p surgical I&D by Dr. Cordon She has had 2 incision and debridement procedures done. Wound culture reveals group B strep and staph lugdunensis Blood cultures negative. Infectious disease was consulted: Recommended penicillin G continuous infusion or ceftriaxone. Patient has had clinical improvement and tolerance of antibiotic once transition to penicillin G. EOT 02/25/2020 Patient is discharged home in stable condition. Arrangements have been made for the patient to receive home health nursing for wound care and antibiotic infusion. She should follow-up with Dr. Cordon in 1 week. (2) Diabetes A1c 10.5% Patient is strongly encouraged to comply with diabetic diet. She had the opportunity meet with registered dietitian community health educator. She is to resume her home medication regiment. Close follow-up by PCP. She will receive home health nursing; hopefully they will be able to assist her with dietary changes and medication compliance. (3) Osteomyelitis of right foot Wound care per Dr. Cordon. (4) Type 2 diabetes mellitus with Charcot's joint of right foot As above. Physical Exam Vital Signs: Temp Pulse Resp BP Pulse Ox 98.5 F 97 16 143/77 H 95 02/10/20 11:02 02/10/20 11:02 02/10/20 11:02 02/10/20 11:02 02/10/20 11:02 Intake & Output 02/09/20 02/10/20 02/11/20 06:59 06:59 06:59 Intake Total 1626 360 Output Total 575 5 Balance 1051 355 Weight 64.8 kg 64.8 kg General appearance: PRESENT: no acute distress, cooperative, well-developed, well-nourished Head exam: PRESENT: atraumatic, normocephalic Eye exam: PRESENT: conjunctiva pink, EOMI, PERRLA. ABSENT: scleral icterus Mouth exam: PRESENT: moist, tongue midline Respiratory exam: PRESENT: clear to auscultation naz, symmetrical, unlabored. ABSENT: rales, rhonchi, wheezes Cardiovascular exam: PRESENT: RRR, +S1, +S2. ABSENT: diastolic murmur, rubs, systolic murmur Vascular exam: PRESENT: normal capillary refill Extremities exam: PRESENT: full ROM. ABSENT: calf tenderness, clubbing, pedal edema Musculoskeletal exam: PRESENT: ambulatory Neurological exam: PRESENT: alert, awake, oriented to person, oriented to place, oriented to time, oriented to situation, CN II-XII grossly intact. ABSENT: motor sensory deficit Psychiatric exam: PRESENT: appropriate affect, normal mood. ABSENT: homicidal ideation, suicidal ideation Skin exam: PRESENT: dry, warm, other - Wound VAC placed on right Charcot foot with no erythema surrounding the wound, sterile gauze bandage on left hand. Slight erythema noted to the posterior aspect of her third finger extending to the PIP joint; decreased from yesterday. ABSENT: cyanosis, intact, rash Results Laboratory Results: WBC 9.2 10^3/uL (4.0-10.5) 02/10/20 05:05 RBC 3.09 10^6/uL (3.72-5.28) L 02/10/20 05:05 Hgb 9.9 g/dL (12.0-15.5) L 02/10/20 05:05 Hct 28.5 % (36.0-47.0) L 02/10/20 05:05 MCV 92 fl (80-97) 02/10/20 05:05 MCH 31.9 pg (27.0-33.4) 02/10/20 05:05 MCHC 34.6 g/dL (32.0-36.0) 02/10/20 05:05 RDW 13.4 % (11.5-14.0) 02/10/20 05:05 Plt Count 529 10^3/uL (150-450) H 02/10/20 05:05 Lymph % (Auto) 13.2 % (13-45) 02/03/20 04:14 [place] % (Auto) 7.5 % (3-13) 02/03/20 04:14 Eos % (Auto) 0.3 % (0-6) 02/03/20 04:14 Baso % (Auto) 0.2 % (0-2) 02/03/20 04:14 Absolute Neuts (auto) 12.9 10^3/uL (1.7-8.2) H 02/03/20 04:14 Absolute Lymphs (auto) 2.2 10^3/uL (0.5-4.7) 02/03/20 04:14 Absolute Monos (auto) 1.2 10^3/uL (0.1-1.4) 02/03/20 04:14 Absolute Eos (auto) 0.0 10^3/uL (0.0-0.6) 02/03/20 04:14 Absolute Basos (auto) 0.0 10^3/uL (0.0-0.2) 02/03/20 04:14 Total Counted 100 02/02/20 05:39 Seg Neutrophils % 78.8 % (42-78) H 02/03/20 04:14 Seg Neuts % (Manual) 85 % (42-78) H 02/02/20 05:39 Lymphocytes % (Manual) 10 % (13-45) L 02/02/20 05:39 Monocytes % (Manual) 5 % (3-13) 02/02/20 05:39 Eosinophils % (Manual) 0 % (0-6) 02/02/20 05:39 Basophils % (Manual) 0 % (0-2) 02/02/20 05:39 Abs Neuts (Manual) 17.6 10^3/uL (1.7-8.2) H 02/02/20 05:39 Abs Lymphs (Manual) 2.1 10^3/uL (0.5-4.7) 02/02/20 05:39 Abs Monocytes (Manual) 1.0 10^3/uL (0.1-1.4) 02/02/20 05:39 Absolute Eos (Manual) 0.0 10^3/uL (0.0-0.6) 02/02/20 05:39 Abs Basophils (Manual) 0.0 10^3/uL (0.0-0.2) 02/02/20 05:39 Toxic Granulation SLIGHT 02/02/20 05:39 Platelet Comment INCREASED 02/02/20 05:39 RBC Morph Comment NORMO-CYTIC/CHROMIC 02/02/20 05:39 ESR 100 mm/hr (0-30) H 02/04/20 09:35 PT 13.8 SEC (11.4-15.4) 02/02/20 05:39 INR 1.06 02/02/20 05:39 APTT 37.4 SEC (23.5-35.8) H 02/02/20 05:39 Sodium 132.2 mmol/L (137-145) L 02/10/20 05:05 Potassium 4.8 mmol/L (3.6-5.0) 02/10/20 05:05 Chloride 99 mmol/L (98-107) 02/10/20 05:05 Carbon Dioxide 32 mmol/L (22-30) H 02/10/20 05:05 Anion Gap 1 (5-19) L 02/10/20 05:05 BUN 8 mg/dL (7-20) 02/10/20 05:05 Creatinine 0.56 mg/dL (0.52-1.25) 02/10/20 05:05 Est GFR ( Amer) > 60 (>60) 02/10/20 05:05 Est GFR (MDRD) Non-Af > 60 (>60) 02/10/20 05:05 Glucose 285 mg/dL (75-110) H 02/10/20 05:05 POC Glucose 235 mg/dL (70-110) H 02/10/20 11:04 Hemoglobin A1c % 10.5 % (4.7-6.0) H 01/29/20 05:22 Lactic Acid 1.3 mmol/L (0.7-2.1) 01/28/20 18:40 Calcium 7.9 mg/dL (8.4-10.2) L 02/10/20 05:05 Magnesium 2.0 mg/dL (1.6-2.3) 02/01/20 05:24 Total Bilirubin 0.4 mg/dL (0.2-1.3) 01/28/20 18:40 Direct Bilirubin 0.1 mg/dL (0.0-0.4) 01/28/20 18:40 Neonat Total Bilirubin Not Reportable 01/28/20 18:40 Neonat Direct Bilirubin Not Reportable 01/28/20 18:40 Neonat Indirect Bili Not Reportable 01/28/20 18:40 AST 20 U/L (14-36) 01/28/20 18:40 ALT 17 U/L (<35) 01/28/20 18:40 Alkaline Phosphatase 180 U/L (38-126) H 01/28/20 18:40 C-Reactive Protein 63.8 mg/L (<10.0) H 02/04/20 09:35 Total Protein 6.9 g/dL (6.3-8.2) 01/28/20 18:40 Albumin 3.4 g/dL (3.5-5.0) L 01/28/20 18:40 Time Trough Drawn 205401/31/20 20:55 Vancomycin Trough 11.1 ug/mL (5.0-20.0) 01/31/20 20:55 Impressions: Foot X-Ray 01/28/20 17:59 IMPRESSION: Ulcer at the base of the 5th metatarsal without gross plain film evidence of osteomyelitis Charcot foot with collapse of the plantar arch and lateral subluxation of the 2nd through 5th metatarsals, similar compared to previous studies Hand X-Ray 01/28/20 17:59 IMPRESSION: Diffuse soft tissue swelling of the left hand. No underlying fracture or radiopaque foreign body Lower Extremity MRI 01/29/20 00:00 IMPRESSION: 1. Abnormal signal within the first, second and third metatarsal heads, which may represent osteomyelitis in the correct clinical setting. 2. Focal soft tissue ulceration and swelling along the lateral aspect of the midfoot. Upper Extremity MRI 01/29/20 00:00 IMPRESSION: 1. No evidence of acute osteomyelitis of the third digit. 2. Diffuse myositis which may be infectious or reactive. 3. Diffuse soft tissue swelling of the left hand which may represent cellulitis. PICC Line Insertion 02/02/20 07:00 IMPRESSION: SUCCESSFUL PLACEMENT OF A 5 FR DUAL LUMEN 28 CM PICC IN THE RIGHT BASILIC VEIN. Plan Plan of Treatment: Patient is discharged home, in stable condition, with home health nursing for wound care. She was also received nursing with home infusion therapy to continue her penicillin G continuous infusion. She should have weekly CBC, CMP, CRP, and sed rate while on antibiotic. She is to follow-up with her primary care provider within 1 week. She is instructed to follow-up with Dr. Cordon as scheduled on the . She is advised to complete her full course of antibiotic therapy. She is instructed take her other medications as prescribed. Eat a heart healthy, diabetic diet. Do not smoke. Return to the emergency department as needed for concerning symptoms. Time Spent: Greater than 30 Minutes Stroke Is this a Stroke Patient?: No Acute Heart Failure - Is this a Heart Failure Patient?: No
[2020-02-10 14:38] VITALS: BP 135/68
== END 2020-02-10 16:01 | disposition home health service (06) | DRG 580 ==
LOC: ER 15:53 → EH 20:18 → 4S 23:31
PROVIDERS: ADMIT Internal Medicine; ATTEND Registered Nurse
PROC: 0HBMXZZ Excision of Right Foot Skin, External Approach (ICD-10-PCS; 2020-01-31)
PROC: 0H9GXZZ Drainage of Left Hand Skin, External Approach (ICD-10-PCS; 2020-01-31 08:15)
PROC: 02HV33Z Insertion of Infusion Device into Superior Vena Cava, Percutaneous Approach (ICD-10-PCS; 2020-02-02)
PROC: B518ZZA Fluoroscopy of Superior Vena Cava, Guidance (ICD-10-PCS; 2020-02-02)
PROC: B548ZZA Ultrasonography of Superior Vena Cava, Guidance (ICD-10-PCS; 2020-02-02)
PROC: 0JBK0ZZ Excision of Left Hand Subcutaneous Tissue and Fascia, Open Approach (ICD-10-PCS; principal; 2020-02-04 15:00)
DX: L02.512 Cutaneous abscess of left hand (principal); M86.171 Other acute osteomyelitis, right ankle and foot; L03.114 Cellulitis of left upper limb; E10.621 Type 1 diabetes mellitus with foot ulcer; E10.42 Type 1 diabetes mellitus with diabetic polyneuropathy; L97.519 Non-pressure chronic ulcer of other part of right foot with unspecified severity; L08.89 Other specified local infections of the skin and subcutaneous tissue; E10.65 Type 1 diabetes mellitus with hyperglycemia; E03.9 Hypothyroidism, unspecified; E10.51 Type 1 diabetes mellitus with diabetic peripheral angiopathy without gangrene; E10.610 Type 1 diabetes mellitus with diabetic neuropathic arthropathy; M60.842 Other myositis, left hand; B95.1 Streptococcus, group B, as the cause of diseases classified elsewhere; B95.7 Other staphylococcus as the cause of diseases classified elsewhere; I25.2 Old myocardial infarction; Z79.4 Long term (current) use of insulin; Z89.021 Acquired absence of right finger(s)
CPT/HCPCS: 01470; 01810; 36415; 36573; 80048; 80053; 80202; 82565; 82962; 83036; 83605; 83735; 85025; 85027; 85610; 85652; 85730; 86140; 87040; 87070; 87075; 87077; 87186; 87205; 94799; 96365; 99284; J0690; J0692; J0696; J1100; J1170; J1642; J1644; J1815; J1885; J2250; J2405; J2540; J2543; J2550; J2704; J2710; J2765; J3010; J3370; J3490; J7030; J7050; J7060; J7120; S0119

== ENCOUNTER 2020-03-09 18:23 | Emergency (ER) | payer MEDICARE, OTHER ==
[2020-03-09 20:01] LABS: ABSOLUTE BASOPHILS # (AUTO) 0.1 10^3/uL (0.0-0.2); ABSOLUTE EOSINOPHILS # (AUTO) 0.2 10^3/uL (0.0-0.6); ABSOLUTE LYMPHOCYTES (AUTO) 1.8 10^3/uL (0.5-4.7); ABSOLUTE MONOCYTES (AUTO) 0.6 10^3/uL (0.1-1.4); ABSOLUTE NEUT (AUTO) 5.6 10^3/uL (1.7-8.2); BASOPHILS % (AUTO) 1.1 % (0-2); EOSINOPHILS % (AUTO) 1.9 % (0-6); HEMATOCRIT 33.8 % (36.0-47.0); HEMOGLOBIN 11.1 g/dL (12.0-15.5); LYMPHOCYTES % (AUTO) 21.6 % (13-45); MEAN CORPUSCULAR HEMOGLOBIN 31.5 pg (27.0-33.4); MEAN CORPUSCULAR VOLUME 95 fl (80-97); MONOCYTES % (AUTO) 6.9 % (3-13); PLATELET COUNT 416 10^3/uL (150-450); RED BLOOD COUNT 3.54 10^6/uL (3.72-5.28); RED CELL DISTRIBUTION WIDTH 15.2 % (11.5-14.0); SEGMENTED NEUTROPHILS % (AUTO) 68.5 % (42-78); TOTAL CELLS COUNTED % (AUTO) 100 %; WHITE BLOOD COUNT 8.2 10^3/uL (4.0-10.5)
--- NOTE | 2020-03-09 20:05 | ER Document Report ---
ED General - General Chief Complaint: Abnormal Lab Results Stated Complaint: ABNORMAL LABS Time Seen by Provider: 03/09/20 19:49 Primary Care Provider: LUIS CARLOS ROBERTS DO [Primary Care Provider] - Follow up as needed TRAVEL OUTSIDE OF THE [place] IN LAST 30 DAYS: No - HPI Notes: Patient is a 64-year-old female with a history of type 1 diabetes, currently being treated with penicillin for hematogenously spread osteomyelitis, who presents to the emergency department for evaluation of abnormal labs. Evidently the patient has regular labs performed by her home health nurse, drawn from her PICC line. It was reported to her that her potassium was 7.1, so she was sent to the ED for further evaluation. The patient is not on potassium supplementation. She states she is in fact taking Lasix due to her fluid retention. She denies any chest pain, palpitations. She states she is mildly short of breath, but states this is actually improving since her diuresis. Otherwise she has not had any medication changes. - Related Data Allergies/Adverse Reactions: lisinopril Allergy (Verified 05/13/19 09:03) Opioids - Morphine Analogues Adverse Reaction (Verified 01/28/20 16:15) Home Medications: List reviewed with patient Past Medical History - General Information source: Patient - Social History Smoking Status: Never Smoker Chew tobacco use (# tins/day): No Frequency of alcohol use: None Drug Abuse: None Family History: Hypertension Patient has homicidal ideation: No - Past Medical History Cardiac Medical History: Reports: Hx Heart Attack Endocrine Medical History: Reports: Hx Diabetes Mellitus Type 1 Renal/ Medical History: Denies: Hx Peritoneal Dialysis Malignancy Medical History: Reports: Hx Breast Cancer Past Surgical History: Reports: Hx Cardiac Surgery - 1 stent, Hx Section - x2, Hx Lumpectomy, Hx Orthopedic Surgery - right arm Review of Systems - Review of Systems Constitutional: See HPI Respiratory: See HPI -: Yes All other systems reviewed and negative Physical Exam - Vital signs Vitals: Temp Pulse Resp BP Pulse Ox 97.7 F 99 18 157/78 H 97 03/09/20 18:28 03/09/20 18:28 03/09/20 18:28 03/09/20 18:28 03/09/20 18:28 - Notes Notes: This is a pleasant 64-year-old female who appears her stated age in no acute distress. Vital signs reviewed, please refer to chart. Head is normocephalic, atraumatic. Pupils equal round, reactive to light. Neck is supple without meningismus. Heart is regular rate and rhythm. Lungs are clear to auscultation bilaterally. Abdomen is soft, nontender, normoactive bowel sounds throughout. Extremities without cyanosis, clubbing. She has pitting edema to the thighs bilaterally. Posterior calves are nontender. Peripheral pulses are equal. Skin is warm and dry. Bandage is not taken down on foot or wrist. Patient is awake, alert, neurological exam is nonfocal. Course - Re-evaluation Re-evalutation: 03/09/20 20:04 Patient presents to the emergency department for evaluation. Repeat laboratory investigations and EKG are ordered. Patient is stable at this time, we will continue to monitor. 03/09/20 21:54 Patient is laboratory investigations revealed a normal potassium today. My suspicion is that her labs drawn earlier today were hemolyzed. Patient is reassured and discharged. - Vital Signs Vital signs: Temp Pulse Resp BP Pulse Ox 98 F 99 23 H 146/78 H 97 03/09/20 19:26 03/09/20 18:28 03/09/20 21:01 03/09/20 21:01 03/09/20 21:01 - Laboratory Result Diagrams: 03/09/20 19:10 03/09/20 19:10 Laboratory results interpreted by me: 03/09/20 03/09/20 19:10 19:10 RBC 3.54 L Hgb 11.1 L Hct 33.8 L RDW 15.2 H Sodium 135.8 L Glucose 272 H Discharge - Discharge Clinical Impression: Worried well Condition: Stable Disposition: HOME, SELF-CARE Additional Instructions: Follow-up with your primary care provider this week. Your potassium was normal on recheck here. Return to the emergency department with worsening or new con cerning symptoms of any sort. Referrals: LUIS CARLOS ROBERTS DO [Primary Care Provider] - Follow up as needed
[2020-03-09 21:51] LABS: ANION GAP 12 (5-19); BLOOD UREA NITROGEN 16 mg/dL (7-20); CALCIUM 8.5 mg/dL (8.4-10.2); CARBON DIOXIDE 22 mmol/L (22-30); CHLORIDE 102 mmol/L (98-107); GLUCOSE 272 mg/dL (75-110); POTASSIUM 4.5 mmol/L (3.6-5.0)
[2020-03-09 22:23] VITALS: BP 148/79
--- NOTE | 2020-03-09 22:27 | EKG REPORT ---
SEVERITY:- ABNORMAL ECG - SINUS RHYTHM PROBABLE INFERIOR INFARCT, AGE INDETERMINATE CONSIDER ANTERIOR INFARCT LATERAL LEADS ARE ALSO INVOLVED : Confirmed by: Monique Garay MD 09-Mar-2020 22:26:35
== END 2020-03-09 22:23 | disposition home or self-care (01) ==
LOC: ER 18:23
DX: Z71.1 Person with feared health complaint in whom no diagnosis is made (principal); E10.69 Type 1 diabetes mellitus with other specified complication; M86.9 Osteomyelitis, unspecified; R06.02 Shortness of breath; R60.0 Localized edema; Z88.8 Allergy status to other drugs, medicaments and biological substances; Z85.3 Personal history of malignant neoplasm of breast
CPT/HCPCS: 36415; 80048; 85025; 93005; 93010; 99283

== ENCOUNTER → 2020-04-01 | Outpatient (CLI) | payer MEDICARE, OTHER ==
[2020-04-01 14:25] LABS: ABSOLUTE BASOPHILS # (AUTO) 0.1 10^3/uL (0.0-0.2); ABSOLUTE EOSINOPHILS # (AUTO) 0.1 10^3/uL (0.0-0.6); ABSOLUTE LYMPHOCYTES (AUTO) 2.2 10^3/uL (0.5-4.7); ABSOLUTE MONOCYTES (AUTO) 0.7 10^3/uL (0.1-1.4); ABSOLUTE NEUT (AUTO) 4.6 10^3/uL (1.7-8.2); BASOPHILS % (AUTO) 0.8 % (0-2); EOSINOPHILS % (AUTO) 1.8 % (0-6); HEMATOCRIT 38.9 % (36.0-47.0); HEMOGLOBIN 12.8 g/dL (12.0-15.5); MEAN CORPUSCULAR HEMOGLOBIN 30.7 pg (27.0-33.4); MEAN CORPUSCULAR HGB CONC 32.9 g/dL (32.0-36.0); MEAN CORPUSCULAR VOLUME 93 fl (80-97); MONOCYTES % (AUTO) 9.1 % (3-13); PLATELET COUNT 350 10^3/uL (150-450); RED BLOOD COUNT 4.17 10^6/uL (3.72-5.28); RED CELL DISTRIBUTION WIDTH 14.2 % (11.5-14.0); SEGMENTED NEUTROPHILS % (AUTO) 60.3 % (42-78); TOTAL CELLS COUNTED % (AUTO) 100 %; WHITE BLOOD COUNT 7.7 10^3/uL (4.0-10.5)
[2020-04-01 14:37] LABS: ALBUMIN 3.7 g/dL (3.5-5.0); ALKALINE PHOSPHATASE 129 U/L (38-126); ANION GAP 7 (5-19); ASPARTATE AMINO TRANSFERASE 24 U/L (14-36); BILIRUBIN,TOTAL 0.5 mg/dL (0.2-1.3); BLOOD UREA NITROGEN 19 mg/dL (7-20); CALCIUM 9.2 mg/dL (8.4-10.2); CARBON DIOXIDE 26 mmol/L (22-30); CHLORIDE 103 mmol/L (98-107); GLUCOSE 215 mg/dL (75-110); POTASSIUM 4.5 mmol/L (3.6-5.0); TOTAL PROTEIN 7.3 g/dL (6.3-8.2)
[2020-04-01 14:41] LABS: C-REACTIVE PROTEIN < 5.0 mg/L (<10.0)
[2020-04-01 15:05] LABS: ERYTHROCYTE SEDIMENTATION RATE 43 mm/hr (0-30)
== END ==
LOC: OD 12:48
PROVIDERS: ATTEND Orthopaedic Surgery
DX: M86.9 Osteomyelitis, unspecified (principal)
CPT/HCPCS: 36415; 80053; 85025; 85652; 86140

== ENCOUNTER → 2020-04-01 | Outpatient (CLI) | payer MEDICARE, OTHER ==
--- NOTE | 2020-04-01 13:23 | RADIOLOGY REPORT (SQ) ---
EXAM DESCRIPTION: MRI LT UPPER EXTREMITY COMBO IMAGES COMPLETED DATE/TIME: 04/01/2020 12:41 pm REASON FOR STUDY: OSTEOMYELITIS, UNSPECIFIED M86.9 OSTEOMYELITIS, UNSPECIFIED COMPARISON: 01/29/2020. TECHNIQUE: Multiplanar imaging of the left hand to include T1-weighted, postcontrast T1-weighted, an d T2-weighted images. CONTRAST TYPE AND DOSE: 10 mL Prohance. RENAL FUNCTION: Not indicated. ACR Type II contrast agent associated with few, if any, unconfounded cases of NSF LIMITATIONS: None. FINDINGS: BONE MARROW: There is abnormal marrow signal in the distal half of the 3rd metacarpal and throughout most of the proximal phalanx of the 3rd finger. Decreased signal on T1 and increased sign al on T2 and STIR images. There is diffuse enhancement. There is cortical destruction of the head o f the 3rd metacarpal. SOFT TISSUES: There is diffuse abnormal signal in the soft tissues surrounding the 3rd metacarpal and soft tissues of the proximal 3rd finger. Decreased signal on T1 and increased signal on T2 and STIR images. Diffuse enhancement. There is nonenhancing abnormal signal surrounding the head of the 3rd metacarpal. This extends dorsally to the extensor tendon of the 3rd finger. OTHER: No other significant finding. IMPRESSION: OSTEOMYELITIS INVOLVING MOST OF THE 3RD METACARPAL AND PROXIMAL PHALANX OF THE 3RD FINGE R. CORTICAL DESTRUCTION OF THE HEAD OF THE 3RD METACARPAL. ABNORMAL SIGNAL AND ENHANCEMENT IN THE A DJACENT SOFT TISSUES CONSISTENT WITH DIFFUSE SOFT TISSUE INFECTION. IRREGULAR ABNORMAL SIGNAL SURROU NDING THE HEAD OF THE 3RD METACARPAL WHICH IS PROBABLY DUE TO ABSCESS OR AT LEAST DEVITALIZED NON PER FUSING TISSUE. THIS DOES EXTEND DORSALLY TO THE EXTENSOR TENDON OF THE 3RD FINGER. TECHNICAL DOCUMENTATION: JOB ID: [id number] 2010 [employer]- All Rights Reserved Reading location - IP/workstation name: [email or web address]
== END ==
LOC: RAD 10:54
PROVIDERS: ATTEND Orthopaedic Surgery
DX: M86.8X4 Other osteomyelitis, hand (principal)
CPT/HCPCS: 73220; A9576

== ENCOUNTER 2020-04-05 09:56 | Day surgery (SDC) | payer MEDICARE, OTHER ==
[~2020-04-05 09:56] MED LIST: CEFAZOLIN 2 GM/D5W RTU 2 GM/50 ML RTUPB IV ONE; CEFAZOLIN 2 GM/D5W RTU 2 GM/50 ML RTUPB IV PRN; CEFAZOLIN SODIUM 2 GM in DEXTROSE 5%-WATER 100 ML IV PRN; DEXAMETHASONE SOD PHOSPHATE INJ 4 MG/1 ML VIAL ONE; FENTANYL CITRATE INJ/PF 100 MCG/2 ML AMPUL ONE; MIDAZOLAM 2 MG/2 ML INJ ONE; ONDANSETRON HCL INJ/PF 4 MG/2 ML SDV ONE; PROPOFOL INJ 200 MG/20 ML VIAL IV ONE
--- NOTE | 2020-04-05 11:09 | RADIOLOGY REPORT (SQ) ---
EXAM DESCRIPTION: CHEST SINGLE VIEW IMAGES COMPLETED DATE/TIME: 04/05/2020 10:23 am REASON FOR STUDY: PRE OP COMPARISON: None. EXAM PARAMETERS: NUMBER OF VIEWS: One view. TECHNIQUE: Single frontal radiographic view of the chest acquired. RADIATION DOSE: NA LIMITATIONS: None. FINDINGS: LUNGS AND PLEURA: No opacities, masses or pneumothorax. No pleural effusion. MEDIASTINUM AND HILAR STRUCTURES: No masses. Contour normal. HEART AND VASCULAR STRUCTURES: Heart normal in size. Normal vasculature. BONES: No acute findings. HARDWARE: Surgical clips project in the region of the left breast. OTHER: No other significant finding. IMPRESSION: NO ACUTE RADIOGRAPHIC FINDING IN THE CHEST. TECHNICAL DOCUMENTATION: JOB ID: [id number] 2010 [employer]- All Rights Reserved Reading location - IP/workstation name: [email or web address]
[2020-04-05] MEDS ORDERED: INSULIN LISPRO 100 UNIT/ML 3 ML VIAL SUBCUT ONE (11:45)
[2020-04-05] MEDS ORDERED: DIPHENHYDRAMINE HCL 50 MG/ML VIAL IV PRN (13:57)
[2020-04-05] MEDS ORDERED: FENTANYL CITRATE INJ/PF 100 MCG/2 ML AMPUL IV PRN ×3 (13:57)
[2020-04-05] MEDS ORDERED: PROMETHAZINE HCL INJ 25 MG/1 ML VIAL IV PRN ×2 (13:57)
[2020-04-05] MEDS ORDERED: MORPHINE SULFATE 10 MG/ML INJ IV PRN (13:57)
[2020-04-05] MEDS ORDERED: ONDANSETRON HCL INJ/PF 4 MG/2 ML SDV IV PRN (13:57)
[2020-04-05] MEDS ORDERED: MEPERIDINE HCL/PF INJ 25 MG/1 ML DISP.SYRIN IV PRN (13:57)
[2020-04-05] MEDS: BUPIVACAINE HCL 0.5 % INJ/PF 30 ML SDV ONE ×2 (14:21→14:40)
--- NOTE | 2020-04-05 14:53 | Discharge Summary ---
Discharge Summary (SDC) - Discharge Final Diagnosis: Left hand osteomyelitis Date of Surgery: 04/05/20 Discharge Date: 04/05/20 Condition: Good Treatment or Instructions: Schedule Follow Up w/ Dr. Ric Rolle @ [facility] to be seen in 10-14 days or as scheduled [place]: [place]: [place]: May remove dressing on postop day #3, keep incision covered and dry. Ice and elevate May begin finger range of motion attempting to make full fist. Stool softener of choice when on pain medication. USE OF [id number] IBUPROFEN: Ibuprofen (Advil, Nuprin, Medipren, Motrin IB) is a medication for fever and pain control. In addition, it has anti- inflammatory effects which may be beneficial, especially in the treatment of injuries. It's best to take ibuprofen with food. Persons with ulcer disease or allergy to aspirin should notify their physician of this before taking ibuprofen. Ibuprofen can be given every four to six hours, for a total of four doses daily. Age Pain or fever dose Antiinflammatory dose 6-8 yr 200 mg (1 tab) 200 mg (1 tab) 9-11 yr 200 mg (1 tab) 200-400 mg (1-2 tab) 11-14 yr 200-400 mg (1-2 tab) 400 mg (2 tab) 15-adult 400 mg (2 tab) 600 mg (3 tab) ORAL NARCOTIC MEDICATION: You have been given a prescription for pain control. This medication is a narcotic. It's best taken with food, as nausea can result if taken on an empty stomach. Don't operate machinery or drive within six hours of taking this medication. Do not combine this medicine with alcohol, or with any medication which can cause sedation (such as cold tablets or sleeping pills) unless you get permission from the physician. Narcotics tend to cause constipation. If possible, drink plenty of fluids and eat a diet high in fiber and fruits. Please be aware that prescription narcotics also have the potential for abuse. People become addicted to these medications because of the general sense of wellbeing that they induce. This feeling along with a significant reduction in tension, anxiety, and aggression provides a stimulating seductive quality to these drugs. Once your pain is under control, we encourage you to discard your unused narcotics. Prescriptions: Amoxicillin/Potassium Clav [Augmentin 875-125 Tablet] 1 tab PO BID #20 tab Referrals: LUIS CARLOS ROBERTS DO [Primary Care Provider] - Discharge Diet: As Tolerated Respiratory Treatments at Home: Deep Breathing/Coughing, Incentive Spirometer Discharge Activity: No Lifting Over 10 Pounds, No Lifting/Push/Pulling Report the Following to Your Physician Immediately: Fever over 101 Degrees, Unusual Bleeding, Redness, Swelling, Warmth, Increased Soreness
--- NOTE | 2020-04-05 14:57 | Operative Report ---
Operative Report DATE OF SURGERY: 04/05/20 PREOPERATIVE DIAGNOSIS: Left hand third metacarpal/proximal phalanx osteomyelit is POSTOPERATIVE DIAGNOSIS: Same OPERATION: Left hand third ray resection SURGEON: AUDRA BOOKER ANESTHESIA: GA TISSUE REMOVED OR ALTERED: Tissue sent to pathology and microbiology for AFB, fungal, aerobic, anaerobic COMPLICATIONS: None ESTIMATED BLOOD LOSS: Minimal PROCEDURE: Indication for above procedure: 64-year-old female who developed infection of her left hand. She subsequently underwent multiple irrigation debridements along with IV antibiotics by 1 of my colleagues. Unfortunately patient continued to have drainage swelling and pain of her hand. At subsequent follow-up radiographs and MRI were performed demonstrating advanced osteomyelitis throughout the metacarpal and proximal phalanx. At that point decision was made to proceed with operative intervention which included ray resection. Risk and benefits of the surgical procedure were explained patient verbalized understanding consented for surgical procedure. Procedure In Detail: Patient was seen and evaluated in the preoperative holding area. The upper extremity was initialized and marked. Patient received 2g of Ancef IV for bacterial prophylaxis. Patient was taken back to the operative room where transferred to the operative table and placed under general anesthesia. Once they were adequately anesthetized a nonsterile tourniquet was placed on the upper extremity. A surgical team debriefing was performed ensuring all instrumentation was available, the surgical procedure was discussed with possible concerns reviewed. The upper extremity was prepped with Betadine and draped in a sterile fashion. A timeout was done identifying correct patient, procedure and extremity everyone in attendance agree with this and verbalized no concerns. The extremity was elevated the tourniquet was inflated to 250 mmHg. Longitudinal skin incision was made dorsally extending from the dorsal wound to distally. Chevron shaped incision was made volarly leaving appropriate amount of skin on the adjacent ring and index finger to allow reconstruction of the webspace. The EDC tendon to the third digit was then excised and juncture were from the adjacent index and middle finger. Sharp dissection was per formed to the dorsal interossei elevating the dorsal interossei and lumbrical from the metacarpal. Osteotomy was made along the metacarpal proximal to the known osteomyelitis and distal to the ECRB tendon insertion. Attention then turned to the volar aspect. Neurovascular bundle to the middle finger including digital nerve and artery were from the adjacent digital nerve to the index and ring finger. Neurectomy was then performed allowing retraction proximal to the muscles of the interossei. Digital artery was coagulated with bipolar cautery. FDS/FDP was then placed on traction and released. Volar plate was elevated from the underlying MCP joint. Remaining volar soft tissue was elevated from the third metacarpal and from the dorsal approach remanent digit from the metacarpal to the distal phalanx was excised. Portions of the bone was sent to micro and digit sent to pathology. There was mild amount of purulence along the volar aspect of the wound. Significant softening and destruction of the metacarpal head was noted. Remaining metacarpal was beveled along its edges to avoid postoperative irritation. Wound was then copiously irrigated with normal saline. Dorsal intermetacarpal ligament and volar plate was then imbricated with a pants over vest type fashion with 2-0 Vicryl closing the intermetacarpal space. There is no scissoring or malrotation of the remaining index or ring finger. Tourniquet was then deflated. Any peripheral bleeding was controlled with cautery until the wound was dry. Subcutaneous tissues were closed with interrupted 4-0 Monocryl suture. Skin was closed with interrupted 4-0 nylon suture. 30 cc of 0.5% bupivacaine without epinephrine was injected for postoperative pain control. Wound was dressed with Xeroform, 4 x 4's and a soft dressing. Sponge counts, instrument counts, needle counts were correct. Patient was then awoken from anesthesia. Transferred from the operating room table to the operating room stretcher. There was no intraoperative complications patient tolerated procedure well stable to PACU. Postoperative plan: Patient will follow in the office in 2 weeks for wound check. Patient will be continued on Augmentin prophylactically given her prior cultures.
[2020-04-05] MEDS ORDERED: ONDANSETRON HCL INJ/PF 4 MG/2 ML SDV ONE (15:00)
[2020-04-05 16:36] VITALS: BP 138/75
--- NOTE | 2020-04-06 09:41 | EKG REPORT ---
SEVERITY:- ABNORMAL ECG - SINUS RHYTHM PROBABLE INFERIOR INFARCT, AGE INDETERMINATE CONSIDER ANTERIOR INFARCT LATERAL LEADS ARE ALSO INVOLVED : Confirmed by: Jose Luis Momin MD 06-Apr-2020 09:40:57
== END 2020-04-05 16:20 | disposition home or self-care (01) ==
LOC: OROUT 09:56
PROVIDERS: ATTEND Orthopaedic Surgery
DX: M86.8X4 Other osteomyelitis, hand (principal); E78.5 Hyperlipidemia, unspecified; I25.10 Atherosclerotic heart disease of native coronary artery without angina pectoris; E10.9 Type 1 diabetes mellitus without complications; I25.2 Old myocardial infarction; Z86.14 Personal history of Methicillin resistant Staphylococcus aureus infection; Z85.3 Personal history of malignant neoplasm of breast; Z79.4 Long term (current) use of insulin; Z79.899 Other long term (current) drug therapy; Z88.5 Allergy status to narcotic agent; Z88.8 Allergy status to other drugs, medicaments and biological substances
CPT/HCPCS: 36415; 87206; 87116; 87101; 82962; 87015; 71045; 26910; U0003; J2250; J3490; J1100; J3010; J2405; J2704; J0690; C9803; 87635; 88305; 88311; 93005; 93010; J7060